=== PATIENT | male | born 1945 | race Caucasian/White ===

== ENCOUNTER → 2016-11-27 | Outpatient (CLI) | payer MEDICARE, BC | LOC: GMAB 10:55 | PROVIDERS: ATTEND Family Medicine | DX: E83.49 Other disorders of magnesium metabolism (principal); I10 Essential (primary) hypertension; Z12.5 Encounter for screening for malignant neoplasm of prostate | CPT/HCPCS: 83735; 84443; G0103 ==

== ENCOUNTER → 2017-01-09 | Outpatient (CLI) | payer MEDICARE, BC | LOC: GMAB 17:29 | PROVIDERS: ATTEND Family Medicine | DX: L02.212 Cutaneous abscess of back [any part, except buttock and flank] (principal) ==

== ENCOUNTER → 2017-03-18 | Outpatient (CLI) | payer MEDICARE, BC ==
--- NOTE | 2017-03-18 16:07 | CT ---
Study: CT Chest. Indication: COPD Technique: CT imaging of the chest obtained without intravenous administration of contrast. This exam was performed according to our departmental dose-optimization program, which includes automated exposure control, adjustment of the mA and/or kV according to patient size and/or use of iterative reconstruction technique. Comparison: None Findings: Atherosclerosis great vessels, aortic and coronary arteries. Mild cardiomegaly. Tiny pericardial effusion. Scattered reactive size and the spinal lymph nodes with the largest pretracheal lymph node demonstrating short axis diameter 7.7 mm. Calcified gallstones partially visualized in the gallbladder. Benign bilateral adrenal gland adenomas. Partial visualization several millimetric central nonobstructing left renal calculi. Degenerative changes of the spine noted. Mild to moderate emphysema. Several scattered sub-5 mm noncalcified pulmonary nodules throughout the lungs with the largest 4 mm nodule in the anterior left upper lobe on image 28. Mild linear scarring versus atelectasis left lung base. No consolidation, pleural effusion, or pneumothorax. Impression: Mild to moderate emphysema with several noncalcified pulmonary nodules as above. Follow-up CT chest in 12 months recommended. Additional findings as above. Electronically signed by: Brian Shafer MD 03/18/2017 4:03 PM CDT
--- NOTE | 2017-03-18 16:07 | US ---
Study: Bilateral Carotid Artery Doppler Sonogram. Indication: OCCLUSION AND STENOSIS OF BILATERAL CAROTID ARTERIES Technique: Multiplanar grayscale and Doppler sonographic images of the bilateral carotid arteries and vertebral arteries were obtained. Findings: The bilateral carotid arteries demonstrate mild to moderate intimal thickening and calcified plaque. Analysis of duplex waveforms and flow velocities indicate no hemodynamically significant stenosis. By grayscale imaging there is a 54% stenosis in the right bulb and 56% stenosis in the proximal right ICA. By grayscale imaging there is a 27% stenosis in the left proximal ICA and a 23% stenosis in the left bulb. The vertebral arteries demonstrate antegrade flow. Impression: Mild to moderate atherosclerosis of the bilateral carotid arteries as detailed above. Electronically signed by: Brian Shafer MD 03/18/2017 4:05 PM CDT
== END ==
LOC: CT 09:41
PROVIDERS: ATTEND Family Medicine
DX: J44.1 Chronic obstructive pulmonary disease with (acute) exacerbation (principal); I65.23 Occlusion and stenosis of bilateral carotid arteries

== ENCOUNTER → 2017-05-13 | Outpatient (CLI) | payer MEDICARE, BC | LOC: GMAB 16:46 | PROVIDERS: ATTEND Family Medicine | DX: R10.13 Epigastric pain (principal); E53.8 Deficiency of other specified B group vitamins; D64.9 Anemia, unspecified; E11.8 Type 2 diabetes mellitus with unspecified complications; E83.49 Other disorders of magnesium metabolism ==

== ENCOUNTER → 2017-05-16 | Outpatient (CLI) | payer MEDICARE, BC ==
--- NOTE | 2017-05-16 16:26 | US ---
EXAM DESCRIPTION: Abdomen,Complete CLINICAL HISTORY: EPIGASTRIC PAIN COMPARISON: None. TECHNIQUE: Real-time sonographic images of the abdomen are obtained. FINDINGS: Pancreas is unremarkable. The right lobe of the liver measures 18.4 cm. The liver is diffusely heterogeneous and increased in echogenicity. No focal hepatic mass is seen. The gallbladder is poorly distended and contains multiple echogenic foci with posterior acoustic shadowing. The largest measure 8, 9, and 10 mm. Mild echogenic gallbladder wall thickening measuring 3.5 mm. The common bile duct measures 3.5 mm in greatest diameter. The right kidney measures 10.6 x 5.6 x 5.8 cm. The left kidney measures 10.2 x 5.8 x 5.0 cm. There is a 1.3 x 1.3 x 0.9 cm anechoic cyst on the left kidney. Both kidneys show normal renal cortical echogenicity. No hydronephrosis is seen. The spleen measures 13.5 cm. Visualized IVC and abdominal aorta are within normal limits. IMPRESSION: Splenomegaly with heterogeneous increased echogenicity of the liver suggesting diffuse fatty infiltration. Cholelithiasis. Gallbladder is contracted with gallbladder wall thickening and raises suspicion for acute cholecystitis. No pericholecystic fluid is seen. Simple appearing left renal cortical cyst. Mild splenomegaly. Electronically signed by: Andrez Barajas MD 05/16/2017 4:25 PM CDT
== END | disposition home or self-care (01) ==
LOC: US 07:56
PROVIDERS: ATTEND Family Medicine
DX: R10.13 Epigastric pain (principal)

== ENCOUNTER 2017-06-06 10:24 | Emergency (ER) | payer MEDICARE ==
--- NOTE | 2017-06-06 10:35 | ED.PDOC ---
History of Present Illness - General Chief Complaint: Respiratory Problem Stated Complaint: dyspnea Time Seen by Provider: 06/06/17 10:33 Source: patient Exam Limitations: no limitations - History of Present Illness Initial Comments: Tae Carreon 71 y/o male stated that while doing his nebulizer treatment this morning got sob and had left sided pleuritic chest pains during coughing episodes.Stated that he had cardiac work up done almost a year ago and 3 months ago mentioned no heart disease. Timing/Duration: getting worse, other - 2 days ago Severity: moderate Activities at Onset: rest Possible Cause: occasional episodes Improving Factors: nothing Worsening Factors: nothing Associated Symptoms: cough, other - pleuritic chest pains Allergies/Adverse Reactions: Allergies Tetanus Toxoid Allergy (Verified 06/21/16 17:04) Swelling of extremities Home Medications: Ambulatory Orders Amlodipine Besylate 10 mg PO DAILY 07/13/13 Clonidine HCl 0.1 mg PO BID 07/13/13 Enalapril Maleate 20 mg PO BID 07/13/13 Metoprolol Tartrate 100 mg PO BID 07/13/13 Cholecalciferol [D3 Maximum Strength] 5,000 unit PO DAILY 10/03/13 Lansoprazole [Prevacid] 30 mg PO DAILY 08/09/14 Insulin Aspart Protamine & Asp [Novolog Mix 70/30 (70-30) 100 Unit/ml] 22 unit SC BID 05/25/15 Magnesium Chloride-Calcium Car [Slow-Mag 71.5-119 mg] 1 tab PO DAILY 05/25/15 Naproxen [Naprosyn] 500 mg PO BID #30 tab 05/25/15 Meloxicam [Mobic] 7.5 mg PO DAILY #10 tab 09/03/15 Albuterol Inhaler [Ventolin Hfa Inhaler] 1 puff INH QID PRN 06/21/16 Azithromycin Tab [Zithromax Tab] 500 mg PO QD #3 tab 06/23/16 Budes/Formoterol INH 160/4.5 [Symbicort Inhaler 160/4.5] 2 puff INH RTBID #0 inh 06/23/16 Potassium Chloride Tab [K-Dur] 20 meq PO DAILYBK #30 tab 06/23/16 predniSONE [Prednisone] 0 mg PO DAILY #30 tab 06/23/16 Review of Systems - Review of Systems Constitutional: States: no symptoms reported EENTM: States: no symptoms reported Respiratory: States: see HPI Cardiology: States: no symptoms reported, other - had cardiac work up last year and 3 months ago stated no heart problem Gastrointestinal/Abdominal: States: diarrhea - chronic scheduled for gi evalution Genitourinary: States: no symptoms reported Musculoskeletal: States: no symptoms reported Skin: States: no symptoms reported Neurological: States: no symptoms reported Endocrine: States: no symptoms reported Hematologic/Lymphatic: States: no symptoms reported Past Medical History (General) - Patient Medical History Hx Seizures: No Hx Stroke: No Hx Asthma: No Hx of COPD: Yes Hx Congestive Heart Failure: Yes Hx Pacemaker: No Hx Hypertension: Yes Hx Diabetes: Yes Hx Gastroesophageal Reflux: Yes Hx MRSA: No Hx Other PMH: Yes - Crohns Surgical History: other - GI,fistula anal - Vaccination History Hx Tetanus, Diphtheria Vaccination: Yes Hx Influenza Vaccination: Yes - 2014 Hx Pneumococcal Vaccination: Yes - Social History Hx Tobacco Use: Yes Years Tobacco Use: 50 Cigarettes Packs Per Day: 1 Hx Alcohol Use: No Hx Substance Use: No Hx Substance Use Treatment: No Hx Physical Abuse: No Hx Emotional Abuse: No - Activities of Daily Living Patient Lives Alone: No - Grooming Ability: Independent Eating (Feeding) Ability: Independent Toileting Ability: Independent - Female History Patient : No Family Medical History - Family History Father Family History: Unknown Living Status: Age at (years of age): 64 Cause of : "blood poisoning" Hx Family Diabetes: Yes - mom Physical Exam - Physical Exam General Appearance: Alert, Comfortable, No apparent distress Eyes, Ears, Nose, Throat Exam: PERRL/EOMI, normal ENT inspection, TMs normal, pharynx normal Neck: non-tender, full range of motion, supple, carotid bruit Respiratory: chest non-tender, rhonchi, wheezing Cardiovascular/Chest: normal peripheral pulses, regular rate, rhythm, no edema, no gallop, no murmur Peripheral Pulses: radial,right: 1+, radial,left: 1+ Gastrointestinal/Abdominal: normal bowel sounds, non tender, soft Rectal Exam: deferred - declined Extremity: non-tender, no pedal edema, no calf tenderness Neurologic: no motor/sensory deficits, alert, oriented x 3 Skin Exam: normal color, warm/dry Lymphatic: no adenopathy Progress - Progress Progress: 06/06/17 12:39 Vital Signs - 8 hr 06/06/17 06/06/17 06/06/17 10:54 10:55 12:00 Temperature 98.2 F Pulse Rate 62 62 Pulse Rate [ 69 68 Left Radial] Respiratory 20 32 H 32 H Rate Blood Pressure 154/66 141/84 [Right Arm] O2 Sat by Pulse 97 98 99 Oximetry - Results/Orders Results/Orders: 06/06/17 10:39 IV Care:Saline Lock per Protoc QSHIFT 06/06/17 10:45 EKG STAT 06/06/17 12:33 URINALYSIS Stat Laboratory Results - last 24 hr 06/06/17 06/06/17 10:40 10:40 WBC 14.6 H RBC 3.40 L Hgb 11.7 L Hct 34.2 L MCV 100.4 H MCH 34.4 H MCHC 34.1 RDW 17.4 H Plt Count 219 MPV 9.7 Absolute Neuts (auto) 11.20 H Absolute Lymphs (auto) 1.80 Absolute Monos (auto) 0.90 H Absolute Eos (auto) 0.60 H Absolute Basos (auto) 0.10 Neutrophils % 76.7 Lymphocytes % 12.5 L Monocytes % 6.3 Eosinophils % 4.0 Basophils % 0.5 PT 12.0 INR 1.060 PTT (SP) 30.1 D-Dimer, Quantitative 596 H* Sodium 144 Potassium 3.4 L Chloride 121 H* Carbon Dioxide 15 L Anion Gap 11.4 L BUN 20 H Creatinine 2.67 H BUN/Creatinine Ratio 7.5 L Random Glucose 143 H Serum Osmolality 291.9 Calcium 8.0 L Magnesium 1.0 L Total Bilirubin 1.1 H Direct Bilirubin 0.2 Indirect Bilirubin 0.9 H AST 16 ALT 16 Alkaline Phosphatase 72 Creatine Kinase 228 H* CK-MB (CK-2) 8.7 H* CK-MB (CK-2) % 3.82 H Troponin I 0.17 H* B-Natriuretic Peptide 1170.0 H* Serum Total Protein 6.2 L Albumin 2.6 L - EKG/XRAY/CT EKG: nonspecific ST T wave Chg - inferior leads Comments: heart rate 66 1st degree av block RBBB ,fascicular block XRAY: chest - no acute abnormalities Departure - Departure Clinical Impression: NSTEMI (non-ST elevation myocardial infarction), Diabetic nephropathy associated with type 1 diabetes mellitus, H/O Crohn's disease, CKD (chronic kidney disease) stage 4, GFR 15-29 ml/min, Hypocalcemia, Hypomagnesemia Dyspnea Qualifiers: Dyspnea type: unspecified Qualified Code(s): R06.00 - Dyspnea, unspecified Time of Disposition: 13:01 - D/W Dr. Susy Chavez- MD TAYLORMalgorzata Disposition: Transfer to Hospital Referrals: Jamel Gracia MD [Primary Care Provider] - 1-2 Weeks Home Medications: Ambulatory Orders Amlodipine Besylate 10 mg PO DAILY 07/13/13 Clonidine HCl 0.1 mg PO BID 07/13/13 Enalapril Maleate 20 mg PO BID 07/13/13 Metoprolol Tartrate 100 mg PO BID 07/13/13 Cholecalciferol [D3 Maximum Strength] 5,000 unit PO DAILY 10/03/13 Lansoprazole [Prevacid] 30 mg PO DAILY 08/09/14 Insulin Aspart Protamine & Asp [Novolog Mix 70/30 (70-30) 100 Unit/ml] 22 unit SC BID 05/25/15 Magnesium Chloride-Calcium Car [Slow-Mag 71.5-119 mg] 1 tab PO DAILY 05/25/15 Naproxen [Naprosyn] 500 mg PO BID #30 tab 05/25/15 Meloxicam [Mobic] 7.5 mg PO DAILY #10 tab 09/03/15 Albuterol Inhaler [Ventolin Hfa Inhaler] 1 puff INH QID PRN 06/21/16 Azithromycin Tab [Zithromax Tab] 500 mg PO QD #3 tab 06/23/16 Budes/Formoterol INH 160/4.5 [Symbicort Inhaler 160/4.5] 2 puff INH RTBID #0 inh 06/23/16 Potassium Chloride Tab [K-Dur] 20 meq PO DAILYBK #30 tab 06/23/16 predniSONE [Prednisone] 0 mg PO DAILY #30 tab 06/23/16
[2017-06-06] MEDS ORDERED: IPRATROPIUM/ALBUTEROL 3 ML VIAL NEB ONE (10:40)
[2017-06-06] MEDS ORDERED: methylPREDNISolone SODIUM SUC 125 MG/2 ML VIAL IV ONE (10:41)
--- NOTE | 2017-06-06 10:56 | RAD ---
EXAM DESCRIPTION: Chest,2 Views CLINICAL HISTORY: sob COMPARISON: June 23, 2016 TECHNIQUE: PA/lateral FINDINGS: There is no cardiac or pulmonary abnormality. The lungs are clear. There is no effusion. IMPRESSION: 1. Normal two-view chest. Electronically signed by: Don Dao MD 06/06/2017 10:54 AM CDT
[2017-06-06] MEDS ORDERED: HEPARIN PREMIX 25,000 UNITS in PREMIX BAG 1 BAG IVS SCH (12:45)
[2017-06-06] MEDS ORDERED: HEPARIN PREMIX 500 ML ONE (12:56)
[2017-06-06 13:30] VITALS: TEMP 97.2
[2017-06-06 14:09] VITALS: BP 168/87; O2SAT 97
== END 2017-06-06 14:05 | disposition short-term general hospital (02) ==
LOC: ER 10:24
DX: I21.4 Non-ST elevation (NSTEMI) myocardial infarction (principal); I13.0 Hypertensive heart and chronic kidney disease with heart failure and stage 1 through stage 4 chronic kidney disease, or unspecified chronic kidney disease; E10.22 Type 1 diabetes mellitus with diabetic chronic kidney disease; N18.4 Chronic kidney disease, stage 4 (severe); I50.9 Heart failure, unspecified; E83.51 Hypocalcemia; E83.42 Hypomagnesemia; J44.9 Chronic obstructive pulmonary disease, unspecified; K21.9 Gastro-esophageal reflux disease without esophagitis; Z87.19 Personal history of other diseases of the digestive system; Z87.891 Personal history of nicotine dependence; Z88.7 Allergy status to serum and vaccine; Z79.899 Other long term (current) drug therapy; Z79.4 Long term (current) use of insulin
CPT/HCPCS: 36415; 71020; 80048; 80076; 81001; 82550; 82553; 83880; 84484; 85025; 85379; 85610; 85730; 93005; 94640; J1644; J2930; J7620

== ENCOUNTER 2017-07-06 11:05 | Emergency (ER) | payer MEDICARE ==
[2017-07-06 11:18] VITALS: TEMP 98.8
--- NOTE | 2017-07-06 11:30 | ED.PDOC ---
History of Present Illness - General Chief Complaint: Lower Extremity Injury Stated Complaint: Left ankle/foot swelling and redness Time Seen by Provider: 07/06/17 11:24 Source: patient Exam Limitations: no limitations - History of Present Illness Initial Comments: Patient presents with left ankle pain and swelling since waking up this morning. He has never had this before and no history of gout. Pain is on the medial ankle, non-radiating, throbbing, worse with movement and walking, better with rest, no recent trauma to the area. No other complaints. Timing/Duration: 4-6 hours Severity: moderate Improving Factors: rest Worsening Factors: movement Associated Symptoms: denies symptoms Allergies/Adverse Reactions: Allergies Tetanus Toxoid Allergy (Verified 07/06/17 11:14) Swelling of extremities Home Medications: Ambulatory Orders Amlodipine Besylate 10 mg PO DAILY 07/13/13 Clonidine HCl 0.1 mg PO BID 07/13/13 Enalapril Maleate 20 mg PO BID 07/13/13 Metoprolol Tartrate 100 mg PO BID 07/13/13 Cholecalciferol [D3 Maximum Strength] 5,000 unit PO DAILY 10/03/13 Lansoprazole [Prevacid] 30 mg PO DAILY 08/09/14 Insulin Aspart Protamine & Asp [Novolog Mix 70/30 (70-30) 100 Unit/ml] 22 unit SC BID 05/25/15 Magnesium Chloride-Calcium Car [Slow-Mag 71.5-119 mg] 1 tab PO DAILY 05/25/15 Naproxen [Naprosyn] 500 mg PO BID #30 tab 05/25/15 Meloxicam [Mobic] 7.5 mg PO DAILY #10 tab 09/03/15 Albuterol Inhaler [Ventolin Hfa Inhaler] 1 puff INH QID PRN 06/21/16 Azithromycin Tab [Zithromax Tab] 500 mg PO QD #3 tab 06/23/16 Budes/Formoterol INH 160/4.5 [Symbicort Inhaler 160/4.5] 2 puff INH RTBID #0 inh 06/23/16 Potassium Chloride Tab [K-Dur] 20 meq PO DAILYBK #30 tab 06/23/16 predniSONE [Prednisone] 0 mg PO DAILY #30 tab 06/23/16 Colchicine 1.2 mg PO BID #3 tab 07/06/17 Tramadol HCl 50 mg PO Q6HRS #20 tab 07/06/17 Review of Systems - Review of Systems Constitutional: States: no symptoms reported EENTM: States: no symptoms reported Respiratory: States: no symptoms reported Cardiology: States: no symptoms reported Gastrointestinal/Abdominal: States: no symptoms reported Genitourinary: States: no symptoms reported Musculoskeletal: States: see HPI Skin: States: no symptoms reported Neurological: States: no symptoms reported Endocrine: States: no symptoms reported Hematologic/Lymphatic: States: no symptoms reported Past Medical History (General) - Patient Medical History Hx Seizures: No Hx Stroke: No Hx Asthma: No Hx of COPD: Yes Hx Cardiac Disorders: Yes - CAD Hx Congestive Heart Failure: No Hx Pacemaker: No Hx Hypertension: Yes Hx Diabetes: Yes Hx Gastroesophageal Reflux: Yes Hx MRSA: No Surgical History: appendectomy, colectomy - Vaccination History Hx Tetanus, Diphtheria Vaccination: Yes Hx Influenza Vaccination: Yes - 2016 Hx Pneumococcal Vaccination: Yes - Social History Hx Tobacco Use: Yes Hx Alcohol Use: No Hx Substance Use: No Hx Substance Use Treatment: No Hx Physical Abuse: No Hx Emotional Abuse: No - Female History Patient : No Family Medical History - Family History Father Family History: Unknown Living Status: Age at (years of age): 64 Cause of : "blood poisoning" Hx Family Diabetes: Yes - mom Physical Exam - Physical Exam General Appearance: Alert Respiratory: lungs clear Cardiovascular/Chest: normal peripheral pulses, regular rate, rhythm Gastrointestinal/Abdominal: normal bowel sounds, non tender, soft Extremity: other - Left ankle is mildly swollen and TTP over medial malleolus. Patient can dorsiflex and plantarflex the foot against resistance but it is painful. There is full sensation throughout the entire foot. Progress - Progress Progress: 07/06/17 15:29 Radiographs of the left foot showed no fractures nor dislocations. There was calcaneal spurring. 07/06/17 15:30 Calcium was 6.6 which happens frequently for the patient. He was given calcium chloride 1 gram IV x one and toradol 30 mg IV x one. He was also given potassium chloride 40 meq po x one. He has chronically low potassium. EKG showed NSR with no ST elevations nor depressions. No QT elongation flattened T waves. Patient discharged with RX for colchicine and tramadol. Laboratory Tests 07/06/17 07/06/17 11:35 14:35 Sodium 146 H Potassium 3.0 L Chloride 114 H Carbon Dioxide 21 Anion Gap 14.0 BUN 21 H Creatinine 2.37 H BUN/Creatinine Ratio 8.9 L Random Glucose 219 H Serum Osmolality 300.2 H Uric Acid 7.1 Calcium 6.6 L* 7.9 L Departure - Departure Clinical Impression: Ankle pain, left Disposition: Discharge to Home or Self Care Condition: Good Departure Forms: ED Discharge - Pt. Copy, Patient Portal Self Enrollment Diet: resume usual diet Activity: increase activity as tolerated Referrals: Jamel Gracia MD [Primary Care Provider] - 1-2 Weeks Prescriptions: Tramadol HCl 50 mg PO Q6HRS #20 tab Colchicine 1.2 mg PO BID #3 tab Home Medications: Ambulatory Orders Amlodipine Besylate 10 mg PO DAILY 07/13/13 Clonidine HCl 0.1 mg PO BID 07/13/13 Enalapril Maleate 20 mg PO BID 07/13/13 Metoprolol Tartrate 100 mg PO BID 07/13/13 Cholecalciferol [D3 Maximum Strength] 5,000 unit PO DAILY 10/03/13 Lansoprazole [Prevacid] 30 mg PO DAILY 08/09/14 Insulin Aspart Protamine & Asp [Novolog Mix 70/30 (70-30) 100 Unit/ml] 22 unit SC BID 05/25/15 Magnesium Chloride-Calcium Car [Slow-Mag 71.5-119 mg] 1 tab PO DAILY 05/25/15 Naproxen [Naprosyn] 500 mg PO BID #30 tab 05/25/15 Meloxicam [Mobic] 7.5 mg PO DAILY #10 tab 09/03/15 Albuterol Inhaler [Ventolin Hfa Inhaler] 1 puff INH QID PRN 06/21/16 Azithromycin Tab [Zithromax Tab] 500 mg PO QD #3 tab 06/23/16 Budes/Formoterol INH 160/4.5 [Symbicort Inhaler 160/4.5] 2 puff INH RTBID #0 inh 06/23/16 Potassium Chloride Tab [K-Dur] 20 meq PO DAILYBK #30 tab 06/23/16 predniSONE [Prednisone] 0 mg PO DAILY #30 tab 06/23/16 Colchicine 1.2 mg PO BID #3 tab 07/06/17 Tramadol HCl 50 mg PO Q6HRS #20 tab 07/06/17 Additional Instructions: Take medications as prescribed. Follow up with Dr. Mg from orthopedics this week. Use crutches as needed.
--- NOTE | 2017-07-06 12:17 | RAD ---
EXAM DESCRIPTION: Foot,Left 3 Views CLINICAL HISTORY: 72 years Male, left foot swelling and pain COMPARISON: None. FINDINGS: 3 views of the left foot show soft tissue edema dorsally without underlying fracture or malalignment. Vascular calcifications are noted. There is calcaneal spurring at the insertion sites of the plantar fascia and Achilles tendon. IMPRESSION: Dorsal soft tissue swelling suggestive of contusion. No underlying fracture or malalignment. Vascular calcifications and degenerative changes. Electronically signed by: Joel Lucia MD 07/06/2017 12:17 PM CDT Workstation: [id number]
[2017-07-06] MEDS ORDERED: CALCIUM CHLORIDE INJ 100 MG/ML SYG IV ONE (12:53)
[2017-07-06] MEDS ORDERED: KETOROLAC TROMETHAMINE INJ 30 MG/ML VIAL IV ONE (13:48)
[2017-07-06] MEDS ORDERED: POTASSIUM CHLORIDE 20 MEQ TAB PO ONE (14:24)
[2017-07-06 15:06] VITALS: O2SAT 99
[2017-07-06 16:14] VITALS: BP 175/69
== END 2017-07-06 16:02 | disposition home or self-care (01) ==
LOC: ER 11:05
DX: M25.572 Pain in left ankle and joints of left foot (principal); J44.9 Chronic obstructive pulmonary disease, unspecified; I25.10 Atherosclerotic heart disease of native coronary artery without angina pectoris; I10 Essential (primary) hypertension; E11.9 Type 2 diabetes mellitus without complications; K21.9 Gastro-esophageal reflux disease without esophagitis; Z79.899 Other long term (current) drug therapy; Z79.4 Long term (current) use of insulin; Z88.7 Allergy status to serum and vaccine; Z87.891 Personal history of nicotine dependence
CPT/HCPCS: 36415; 73630; 80048; 82310; 84550; 93005; J1885

== ENCOUNTER → 2017-09-12 | Outpatient (CLI) | payer MEDICARE ==
--- NOTE | 2017-09-14 00:23 | RAD ---
Examination: XR HAND 3 OR MORE VIEWS dated 09/12/2017 12:00 AM CDT History: RIGHT HAND PAIN Comparison: None Technique: Three views of the right hand FINDINGS AND IMPRESSION: No acute fracture or dislocation. There is mild chondrocalcinosis of the radiocarpal joint. Mild degenerative changes of the basal joint. No osseous erosions. Electronically signed by: Dileep Chand MD 09/14/2017 12:22 AM CDT
== END | disposition home or self-care (01) ==
LOC: RAD 07:26
PROVIDERS: ATTEND Orthopaedic Surgery
DX: M79.641 Pain in right hand (principal)

== ENCOUNTER 2017-09-24 05:49 | Day surgery (SDC) | payer MEDICARE ==
--- NOTE | 2017-09-22 08:51 | HP ---
CHIEF COMPLAINT: Right hand numbness. HISTORY OF PRESENT ILLNESS: Tae is a 72-year-old male with a history of pain and numbness in the right hand. He has had this going on for several years. I initially saw him about two years ago. He elected to not have anything done at that time. His symptoms are now present on a continual basis. It is isolated to the palmar aspect of the hand involving the first three digits. Because of the continual basis, he has requested operative intervention. After discussing the risks, benefits and alternatives to that, the patient has given informed consent. PAST SURGICAL HISTORY: 1. Partial colectomy. 2. Hemorrhoidectomy. 3. Appendectomy. MEDICATIONS: 1. Potassium. 2. Metoprolol. 3. Amlodipine. 4. Magnesium. 5. Enalapril. ALLERGIES: TETANUS. CODE STATUS: Full code. IMMUNIZATIONS: Up to date. SOCIAL HISTORY: The patient does not drink or use any illicit drugs. He does smoke. FAMILY HISTORY: None pertinent to today's complaint. REVIEW OF SYSTEMS: Negative except as indicated in the History of Present Illness. PHYSICAL EXAMINATION: VITAL SIGNS: Blood pressure 168/69. Pulse 63. Height 6'. Weight 186. MENTAL STATUS: The patient is awake, alert, and is able to give a good history and participate in the physical. The patient is oriented to person, place and time. SKIN: Normal tone and turgor. MUSCULOSKELETAL: He has obvious thenar atrophy and numbness at rest. Two- point discrimination is not possible to test secondary to his numbness. He does have full director chemistry strength. He has some stiffness in the digits, but otherwise full range of motion. He has an equivocal carpal compression test. ASSESSMENT: 1. Carpal tunnel syndrome. PLAN: The plan at this point is for carpal tunnel release. We have discussed the risks, benefits, and alternatives to that and the patient has given informed consent. #[id number] [facility]
[2017-09-24] MEDS ORDERED: LACTATED RINGERS 1,000 ML ONE (06:21)
[2017-09-24] MEDS ORDERED: SODIUM CHL 0.9% 100ML MINI-BAG 100 ML IVPB ONE (06:21)
[2017-09-24] MEDS ORDERED: ceFAZolin SODIUM 1 GM VIAL ONE (06:21)
[2017-09-24] MEDS ORDERED: BUPIVACAINE 0.25% INJ 30 ML VIAL INJ ONE (10:01)
[2017-09-24] MEDS ORDERED: LIDOCAINE 1% 50 ML VIAL INJ ONE (10:01)
[2017-09-24] MEDS: ceFAZolin SODIUM 1 GM VIAL ONE ×2 (10:33→10:39)
[2017-09-24] MEDS: VANCOMYCIN HCL INJ 1,000 MG VIAL IVPB ONE ×2 (10:34→10:40)
[2017-09-24] MEDS ORDERED: ALBUTEROL SULFATE 2.5 MG/3 ML VIAL NEB ONE (11:05)
[2017-09-24 11:50] VITALS: BP 187/75; TEMP 98; O2SAT 100
[2017-09-24] MEDS ORDERED: fentaNYL CITRATE INJ 50 MCG/ML AMP IV ONE (12:00)
[2017-09-24] MEDS ORDERED: MIDAZOLAM INJ 2 MG/2 ML VIAL IV ONE (12:00)
[2017-09-24] MEDS ORDERED: PROPOFOL 200 MG/20 ML VIAL IV ONE (12:00)
[2017-09-24] MEDS ORDERED: LIDOCAINE 1% 10 ML VIAL INJ ONE (12:00)
--- NOTE | 2017-09-29 08:35 | OP ---
DATE OF PROCEDURE: 09/24/17 PREOPERATIVE DIAGNOSIS: 1. Carpal tunnel syndrome, right POSTOPERATIVE DIAGNOSIS: 1. Carpal tunnel syndrome, right. PROCEDURE: 1. Carpal tunnel release, right. SURGEON: Samuel Mg MD. FORMULA TECHNICIAN: Emery Powell CST, SA-C. ANESTHESIA: Local with sedation. COMPLICATIONS: None. FINDINGS: 1. Narrowing of the median nerve across the carpal tunnel. 2. Thickening of the transverse carpal ligament. 3. Slight thenar atrophy. INDICATION: Mr. Carreon has a long history of numbness in the first three digits as well as pain in the wrist. Because of the ongoing symptoms and the onset of symptoms at rest, he has requested operative intervention. After discussing the risks, benefits and alternatives to that, the patient has given informed consent for carpal tunnel release. PROCEDURE: The patient was brought to the Operating Room and placed in the supine position. Sedation was administered and local anesthetic was injected into the operative area under sterile conditions. After the injection of anesthetic, the arm was sterilely prepped and draped. A longitudinal incision was made directly overlying the transverse carpal ligament and blunt dissection was carried down to the ligament. The transverse carpal ligament was sharply transected along its length and a [place] elevator was used to ensure complete release of the ligament. Once release had been confirmed, the wound was thoroughly irrigated and the wound was closed with Nylon suture. A sterile dressing was placed and the patient was taken to the Day Surgery Unit. POSTOPERATIVE INSTRUCTIONS: The patient has been encouraged to do range of motion of the digits and will followup with us in two days. #[id number] [facility]
== END 2017-09-24 11:40 | disposition home or self-care (01) ==
LOC: AMB 05:49
PROVIDERS: ATTEND Orthopaedic Surgery
DX: G56.01 Carpal tunnel syndrome, right upper limb (principal); I10 Essential (primary) hypertension; I25.10 Atherosclerotic heart disease of native coronary artery without angina pectoris; E11.9 Type 2 diabetes mellitus without complications; K21.9 Gastro-esophageal reflux disease without esophagitis; F17.210 Nicotine dependence, cigarettes, uncomplicated; J44.9 Chronic obstructive pulmonary disease, unspecified; Z90.49 Acquired absence of other specified parts of digestive tract; Z88.7 Allergy status to serum and vaccine; Z79.899 Other long term (current) drug therapy
CPT/HCPCS: 01810; 36416; 64721; 82948; 94640; J0690; J2250; J3010; J3370; J3490; J7050; J7120; J7611

== ENCOUNTER 2017-09-30 16:48 | Emergency (ER) | payer MEDICARE ==
[2017-09-30 16:59] VITALS: O2SAT 98
[2017-09-30] MEDS ORDERED: COLCHICINE 0.6 MG TAB PO ONE (16:59)
[2017-09-30] MEDS ORDERED: predniSONE 20 MG TAB PO ONE (17:00)
--- NOTE | 2017-09-30 18:10 | ED.PDOC ---
History of Present Illness - General Chief Complaint: General Stated Complaint: R ankle discomfort Time Seen by Provider: 09/30/17 16:53 Source: patient Exam Limitations: no limitations - History of Present Illness Initial Comments: the patient is a 72-year-old male presenting to the emergency room secondary to pain in his right ankle and lower extremity. The patient had carpal tunnel done yesterday. He woke up with the pain this morning. The area is swollen and mildly erythematous and warm and veryvery tender to touch. Timing/Duration: 24 hours Severity: severe Improving Factors: nothing Worsening Factors: movement Associated Symptoms: denies symptoms Allergies/Adverse Reactions: Allergies Tetanus Toxoid Allergy (Verified 07/06/17 11:14) Swelling of extremities Home Medications: Ambulatory Orders Amlodipine Besylate 10 mg PO DAILY 07/13/13 Clonidine HCl 0.1 mg PO BID 07/13/13 Enalapril Maleate 20 mg PO BID 07/13/13 Metoprolol Tartrate 100 mg PO BID 07/13/13 Lansoprazole [Prevacid] 30 mg PO DAILY 08/09/14 Insulin Aspart Protamine & Asp [Novolog Mix 70/30 (70-30) 100 Unit/ml] 22 unit SC BID 05/25/15 Magnesium Chloride-Calcium Car [Slow-Mag 71.5-119 mg] 1 tab PO DAILY 05/25/15 Potassium Chloride Tab [K-Dur] 20 meq PO DAILYBK #30 tab 06/23/16 Btxlfhcavxykx-Wokm-Asqxpzwxjy [Fioricet] 1 ea PO Q8H PRN #21 tab 09/30/17 Colchicine 0.6 mg PO Q2H PRN #10 tab 09/30/17 Review of Systems - Review of Systems Constitutional: States: no symptoms reported EENTM: States: no symptoms reported Respiratory: States: no symptoms reported Cardiology: States: no symptoms reported Gastrointestinal/Abdominal: States: no symptoms reported Genitourinary: States: no symptoms reported Musculoskeletal: States: see HPI Skin: States: see HPI Neurological: States: no symptoms reported, anxiety Endocrine: States: no symptoms reported All other Systems: No Change from Baseline Past Medical History (General) - Patient Medical History Hx Seizures: No Hx Stroke: No Hx Asthma: No Hx of COPD: Yes Hx Cardiac Disorders: Yes - CAD Hx Congestive Heart Failure: No Hx Pacemaker: No Hx Hypertension: Yes Hx Diabetes: Yes - fsbs 140 Hx Gastroesophageal Reflux: Yes Hx MRSA: Yes MRSA Source:: colon surg Surgical History: colectomy - Vaccination History Hx Tetanus, Diphtheria Vaccination: Yes Hx Influenza Vaccination: Yes - 2017 Hx Pneumococcal Vaccination: Yes - Social History Hx Tobacco Use: Yes Hx Alcohol Use: No Hx Substance Use: No Hx Substance Use Treatment: No Hx Physical Abuse: No Hx Emotional Abuse: No - Female History Patient : No Family Medical History - Family History Father Family History: Unknown Living Status: Age at (years of age): 62 Cause of : "blood poisoning" Hx Family Diabetes: Yes - mom Physical Exam - Physical Exam General Appearance: Alert, Obvious distress Eye Exam: bilateral normal Ears, Nose, Throat: normal ENT inspection, normal pharynx Neck: full range of motion Respiratory: no respiratory distress, no accessory muscle use Cardiovascular/Chest: normal peripheral pulses, other - egular rate Peripheral Pulses: radial,right: 2+, radial,left: 2+, dorsalis pedis,right: 2+, dorsalis pedis,left: 2+ Rectal Exam: deferred Extremity: inflammation, pedal edema, swelling 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 He received a dose of colchicine and prednisone here. He does need to follow his blood sugars closely over the next few days. He will be written for colchicine for as needed use for the gout. He needs to keep himself well hydrated. He needs to keep the lower extremity warm. He needs to avoid large protein loads and/or any alcohol. ER warnings were given for any significant worsening. Fioricet can be used additionally as needed for pain. Departure - Departure Clinical Impression: Gout Qualifiers: Gout site: ankle Gout etiology: unspecified cause Chronicity: acute Laterality : right Qualified Code(s): M10.9 - Gout, unspecified Disposition: Discharge to Home or Self Care Condition: Fair Departure Forms: ED Discharge - Pt. Copy, Patient Portal Self Enrollment Instructions: DI for Gout Diet: regular diet - low protein Activity: increase activity as tolerated Referrals: Jamel Gracia MD [Primary Care Provider] - 1-2 Weeks Prescriptions: Aerkolhgxwkrg-Lxyd-Sodjmcgapj [Fioricet] 1 ea PO Q8H PRN #21 tab PRN Reason: Pain Colchicine 0.6 mg PO Q2H PRN #10 tab PRN Reason: Pain -- Moderate To Severe Home Medications: Ambulatory Orders Amlodipine Besylate 10 mg PO DAILY 07/13/13 Clonidine HCl 0.1 mg PO BID 07/13/13 Enalapril Maleate 20 mg PO BID 07/13/13 Metoprolol Tartrate 100 mg PO BID 07/13/13 Lansoprazole [Prevacid] 30 mg PO DAILY 08/09/14 Insulin Aspart Protamine & Asp [Novolog Mix 70/30 (70-30) 100 Unit/ml] 22 unit SC BID 05/25/15 Magnesium Chloride-Calcium Car [Slow-Mag 71.5-119 mg] 1 tab PO DAILY 05/25/15 Potassium Chloride Tab [K-Dur] 20 meq PO DAILYBK #30 tab 06/23/16 Qktbdamvdzpmj-Voou-Snzqcqdrpt [Fioricet] 1 ea PO Q8H PRN #21 tab 09/30/17 Colchicine 0.6 mg PO Q2H PRN #10 tab 09/30/17 Additional Instructions: the patient is a 72-year-old male that appears to be having a gout flare in his right ankle. He received a dose of colchicine and prednisone here. He does need to follow his blood sugars closely over the next few days. He will be written for colchicine for as needed use for the gout. He needs to keep himself well hydrated. He needs to keep the lower extremity warm. He needs to avoid large protein loads and/or any alcohol. ER warnings were given for any significant worsening. Fioricet can be used additionally as needed for pain.
[2017-09-30 19:18] VITALS: BP 168/76; TEMP 99
== END 2017-09-30 18:17 | disposition home or self-care (01) ==
LOC: ER 16:48
DX: M10.9 Gout, unspecified (principal); J44.9 Chronic obstructive pulmonary disease, unspecified; I10 Essential (primary) hypertension; E11.9 Type 2 diabetes mellitus without complications; K21.9 Gastro-esophageal reflux disease without esophagitis; I25.10 Atherosclerotic heart disease of native coronary artery without angina pectoris; Z88.7 Allergy status to serum and vaccine; Z79.4 Long term (current) use of insulin; Z79.899 Other long term (current) drug therapy

== ENCOUNTER → 2018-01-15 | Outpatient (CLI) | payer MEDICARE | LOC: GMAB 10:31 | PROVIDERS: ATTEND Family Medicine | DX: E83.49 Other disorders of magnesium metabolism (principal); I10 Essential (primary) hypertension; M10.072 Idiopathic gout, left ankle and foot; E11.8 Type 2 diabetes mellitus with unspecified complications; Z12.5 Encounter for screening for malignant neoplasm of prostate | CPT/HCPCS: 83735; 84443; 84550; G0103 ==

== ENCOUNTER → 2018-02-24 | Outpatient (CLI) | payer MEDICARE | END | disposition home or self-care (01) | LOC: GMAB 12:21 | PROVIDERS: ATTEND Family Medicine | DX: E83.49 Other disorders of magnesium metabolism (principal) ==

== ENCOUNTER 2018-05-09 13:45 | Emergency (ER) | payer MEDICARE ==
[2018-05-09] MEDS ORDERED: CALCIUM GLUCONATE INJ 1 GM/10 ML VIAL IV ONE ×2 (15:15→19:38)
[2018-05-09] MEDS ORDERED: MAGNESIUM SULFATE PREMIX 4GM 4 GM in PREMIX BAG 1 BAG IVPB ONE (15:16)
[2018-05-09] MEDS ORDERED: MAGNESIUM SULFATE PREMIX 4GM 50 ML IVPB ONE (15:32)
[2018-05-09] MEDS ORDERED: SODIUM CHLORIDE 0.9% 50ML 50 ML ONE ×2 (16:02→17:20)
[2018-05-09] MEDS ORDERED: CALCIUM GLUCONATE INJ 1 GM in SODIUM CHLORIDE 0.9% 50ML 50 ML IVPB ONE (16:04)
[2018-05-09] MEDS ORDERED: CALCIUM GLUCONATE INJ 1 GM/10 ML VIAL ONE (17:02)
[2018-05-09 18:44] VITALS: O2SAT 99
[2018-05-09] MEDS ORDERED: CALCIUM CARBONATE (ANTACID) 500 MG CHEWABLE TAB PO ONE (19:31)
--- NOTE | 2018-05-09 19:34 | ED.PDOC ---
History of Present Illness - General Chief Complaint: General Stated Complaint: Tingling to BUE Time Seen by Provider: 05/09/18 14:01 Source: patient, Vital Signs reviewed, family, old records Exam Limitations: no limitations - History of Present Illness Initial Comments: he says he has had tingling to his fingertips for weeks but worse beginning yesterday. It is identical to many previous episodes caused by hypocalcemia. He says he was told it was from his copious diarrhea he has with his Crohns disease. He says he is typically given magnesium & calcium, he gets better & goes home - which is what he wants today. He has been sent to for the same & also got a normal cardiac eval including a stress test. Other than the tingling, he has no other symptoms. Timing/Duration: unsure, constant, getting worse Severity: mild Improving Factors: nothing Worsening Factors: nothing Associated Symptoms: denies symptoms - no missed doses of his meds Allergies/Adverse Reactions: Allergies Tetanus Toxoid Allergy (Verified 05/09/18 14:08) Swelling of extremities Home Medications: Ambulatory Orders Amlodipine Besylate 10 mg PO DAILY 07/13/13 Clonidine HCl 0.1 mg PO BID 07/13/13 Enalapril Maleate 20 mg PO BID 07/13/13 Metoprolol Tartrate 100 mg PO BID 07/13/13 Lansoprazole [Prevacid] 30 mg PO DAILY 08/09/14 Insulin Aspart Protamine & Asp [Novolog Mix 70/30 (70-30) 100 Unit/ml] 22 unit SC BID 05/25/15 Magnesium Chloride-Calcium Car [Slow-Mag 71.5-119 mg] 1 tab PO DAILY 05/25/15 Potassium Chloride Tab [K-Dur] 20 meq PO DAILYBK #30 tab 06/23/16 Zxxllupfgvqkv-Iqnw-Ivqjdkjjqg [Fioricet] 1 ea PO Q8H PRN #21 tab 09/30/17 Colchicine 0.6 mg PO Q2H PRN #10 tab 09/30/17 Review of Systems - Review of Systems Constitutional: States: see HPI EENTM: States: no symptoms reported Respiratory: States: no symptoms reported Cardiology: States: no symptoms reported Genitourinary: States: no symptoms reported Musculoskeletal: States: no symptoms reported Skin: States: no symptoms reported Neurological: States: paresthesia Endocrine: States: no symptoms reported Past Medical History (General) - Patient Medical History Hx Seizures: No Hx Stroke: No Hx Asthma: No Hx of COPD: Yes Hx Cardiac Disorders: Yes - CAD Hx Congestive Heart Failure: No Hx Pacemaker: No Hx Hypertension: Yes Hx Diabetes: Yes Hx Gastroesophageal Reflux: Yes Hx MRSA: Yes MRSA Source:: colon surg - Vaccination History Hx Tetanus, Diphtheria Vaccination: Yes Hx Influenza Vaccination: Yes - 2017 Hx Pneumococcal Vaccination: Yes - Social History Hx Tobacco Use: Yes Hx Alcohol Use: No Hx Substance Use: No Hx Substance Use Treatment: No Hx Physical Abuse: No Hx Emotional Abuse: No - Female History Patient : No Family Medical History - Family History Father Family History: Unknown Living Status: Age at (years of age): 62 Cause of : "blood poisoning" Hx Family Diabetes: Yes - mom Physical Exam - Physical Exam General Appearance: Alert, Comfortable, No apparent distress Eye Exam: bilateral normal Ears, Nose, Throat: normal ENT inspection Neck: supple, normal inspection Respiratory: lungs clear, normal breath sounds, no respiratory distress, no accessory muscle use Cardiovascular/Chest: regular rate, rhythm, no edema, no gallop, no JVD, no murmur Gastrointestinal/Abdominal: non tender, soft, no organomegaly Extremity: normal range of motion, normal inspection, normal capillary refill Neurologic: alert, normal mood/affect, oriented x 3, sensory deficit - fingertips Skin Exam: normal color, warm/dry Progress - Progress Progress: 05/09/18 19:34 asymptomatic. Wants to go home. Declines admission. Cr in Dec or January was 4.7 by his report. He will f/u with his PCP on Friday for repeat lab. 05/10/18 00:08 Have increased his home Ca supplementation until Friday. - Results/Orders Results/Orders: critical Ca & Mg with acidosis - EKG/XRAY/CT EKG: Lucas, Sinus, nonspecific ST T wave Chg Comments: SB @ 59; LAD; 1st HB; LVH & widened QRS Departure - Departure Clinical Impression: Hypocalcemia Disposition: Discharge to Home or Self Care Condition: Fair Departure Forms: ED Discharge - Pt. Copy, Patient Portal Self Enrollment Instructions: Hypocalcemia (DC) Referrals: Jamel Gracia MD [Primary Care Provider] - 1-2 Days Home Medications: Ambulatory Orders Amlodipine Besylate 10 mg PO DAILY 07/13/13 Clonidine HCl 0.1 mg PO BID 07/13/13 Enalapril Maleate 20 mg PO BID 07/13/13 Metoprolol Tartrate 100 mg PO BID 07/13/13 Lansoprazole [Prevacid] 30 mg PO DAILY 08/09/14 Insulin Aspart Protamine & Asp [Novolog Mix 70/30 (70-30) 100 Unit/ml] 22 unit SC BID 05/25/15 Magnesium Chloride-Calcium Car [Slow-Mag 71.5-119 mg] 1 tab PO DAILY 05/25/15 Potassium Chloride Tab [K-Dur] 20 meq PO DAILYBK #30 tab 06/23/16 Tipoqqpdiityx-Jfdt-Zelfodoars [Fioricet] 1 ea PO Q8H PRN #21 tab 09/30/17 Colchicine 0.6 mg PO Q2H PRN #10 tab 09/30/17 Additional Instructions: increase your calcium as directed
[2018-05-09 20:07] VITALS: BP 161/71; TEMP 98.1
== END 2018-05-09 20:07 | disposition home or self-care (01) ==
LOC: ER 13:45
DX: E83.51 Hypocalcemia (principal); R20.2 Paresthesia of skin; R00.1 Bradycardia, unspecified; I44.0 Atrioventricular block, first degree; I25.10 Atherosclerotic heart disease of native coronary artery without angina pectoris; K50.90 Crohn's disease, unspecified, without complications; J44.9 Chronic obstructive pulmonary disease, unspecified; I10 Essential (primary) hypertension; E11.9 Type 2 diabetes mellitus without complications; K21.9 Gastro-esophageal reflux disease without esophagitis; Z88.7 Allergy status to serum and vaccine; Z79.899 Other long term (current) drug therapy
CPT/HCPCS: 36415; 80048; 83735; 93005; A4216; J3475

== ENCOUNTER 2018-06-22 12:16 | Emergency (ER) | payer MEDICARE ==
[2018-06-22 12:31] VITALS: TEMP 98.5
--- NOTE | 2018-06-22 12:36 | ED.PDOC ---
History of Present Illness - General Chief Complaint: GI Problem Stated Complaint: Chronic diarrhea and nausea Time Seen by Provider: 06/22/18 12:30 Source: patient, RN notes reviewed, Vital Signs reviewed Additional Information: 73 YEAR OLD WHITE MALE WITH KNOWN HISTORY OF CROHNS DISEASE SEEN AT THE CLINIC TODAY AND SENT OVER FOR EVALUATION OF POSSIBLE BOWEL OBSTRUCTION HE HAS BEEN FEELING NUASEATED AND EXPERIENCING ABDOMINAL DISCOMFORT FOR THE PAST 3-4 DAYS HE HAS HAD NORMAL WELL FORMED BOWEL MOVEMENT TODAY - History of Present Illness Severity: moderate Improving Factors: nothing Allergies/Adverse Reactions: Allergies Tetanus Toxoid Allergy (Verified 05/09/18 14:08) Swelling of extremities Home Medications: Ambulatory Orders Amlodipine Besylate 10 mg PO DAILY 07/13/13 Clonidine HCl 0.1 mg PO BID 07/13/13 Enalapril Maleate 20 mg PO BID 07/13/13 Metoprolol Tartrate 100 mg PO BID 07/13/13 Lansoprazole [Prevacid] 30 mg PO DAILY 08/09/14 Insulin Aspart Protamine & Asp [Novolog Mix 70/30 (70-30) 100 Unit/ml] 22 unit SC BID 05/25/15 Magnesium Chloride-Calcium Car [Slow-Mag 71.5-119 mg] 1 tab PO DAILY 05/25/15 Potassium Chloride Tab [K-Dur] 20 meq PO DAILYBK #30 tab 06/23/16 Vdxvowpzinaup-Ooya-Xxrkjdftlf [Fioricet] 1 ea PO Q8H PRN #21 tab 09/30/17 Colchicine 0.6 mg PO Q2H PRN #10 tab 09/30/17 Review of Systems - Review of Systems Constitutional: States: weakness EENTM: States: no symptoms reported Respiratory: States: no symptoms reported Cardiology: States: no symptoms reported Gastrointestinal/Abdominal: States: nausea Genitourinary: States: no symptoms reported Musculoskeletal: States: no symptoms reported Skin: States: no symptoms reported Neurological: States: no symptoms reported Endocrine: States: no symptoms reported Hematologic/Lymphatic: States: no symptoms reported Past Medical History (General) - Patient Medical History Hx Seizures: No Hx Stroke: No Hx Asthma: No Hx of COPD: Yes Hx Cardiac Disorders: Yes - CAD Hx Congestive Heart Failure: No Hx Pacemaker: No Hx Hypertension: Yes Hx Diabetes: Yes Hx Gastroesophageal Reflux: Yes Hx MRSA: Yes MRSA Source:: colon surg - Vaccination History Hx Tetanus, Diphtheria Vaccination: Yes Hx Influenza Vaccination: Yes - 2017 Hx Pneumococcal Vaccination: Yes - Social History Hx Tobacco Use: Yes Hx Alcohol Use: No Hx Substance Use: No Hx Substance Use Treatment: No Hx Physical Abuse: No Hx Emotional Abuse: No - Female History Patient : No Family Medical History - Family History Father Family History: Unknown Living Status: Age at (years of age): 62 Cause of : "blood poisoning" Hx Family Diabetes: Yes - mom Physical Exam - Physical Exam General Appearance: Alert Eye Exam: bilateral normal Ears, Nose, Throat: hearing grossly normal, normal ENT inspection, normal pharynx Neck: non-tender, full range of motion, supple Respiratory: chest non-tender, lungs clear, normal breath sounds, no respiratory distress, no accessory muscle use Cardiovascular/Chest: normal peripheral pulses, regular rate, rhythm, no edema, no gallop, no JVD, no murmur Peripheral Pulses: radial,right: 2+, radial,left: 2+, femoral,right: 2+, femoral ,left: 2+ Gastrointestinal/Abdominal: normal bowel sounds, non tender, soft, distended, hernia Back Exam: normal inspection, no CVA tenderness, no vertebral tenderness Extremity: normal range of motion 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, no motor/sensory deficits, alert, normal mood/affect, oriented x 3 Progress - Results/Orders Results/Orders: LAB FROM THE CLINIC REVIEWED GLUCOSE 121 BUN 21 NA 144 CL 116 CR 3.8 CALCIUM 6.7 K 3.4 CO2 18 LFT NORMAL WBC 16.6 H/H 11.1 32.5 NEUTROPHILS 84 % NO BANDS PLT 236 ABDOMINAL X RAY MULTIPLE AIR FLUID LEVELS Laboratory Tests 06/22/18 13:08 Magnesium 0.8 L* PT RECEIVED IV FLUIDS IV CALCIUM GLUCONATE IV MAG 2 GM HE FEELS BETTER HE VOIDED LIKES TO GO HOME HE WAS ADVISED TO FOLLOW UP WITH GASTRO ENTEROLOGIST OF HIS CHOICE ABOUT MANAGEMENT OF HIS CROHNS DISEASE Departure - Departure Clinical Impression: Crohns disease, Electrolyte abnormality, Hypocalcemia Time of Disposition: 16:06 Disposition: Discharge to Home or Self Care Condition: Good Departure Forms: ED Discharge - Pt. Copy, Patient Portal Self Enrollment Referrals: Jamel Gracia MD [Primary Care Provider] - 1-2 Weeks Home Medications: Ambulatory Orders Amlodipine Besylate 10 mg PO DAILY 07/13/13 Clonidine HCl 0.1 mg PO BID 07/13/13 Enalapril Maleate 20 mg PO BID 07/13/13 Metoprolol Tartrate 100 mg PO BID 07/13/13 Lansoprazole [Prevacid] 30 mg PO DAILY 08/09/14 Insulin Aspart Protamine & Asp [Novolog Mix 70/30 (70-30) 100 Unit/ml] 22 unit SC BID 05/25/15 Magnesium Chloride-Calcium Car [Slow-Mag 71.5-119 mg] 1 tab PO DAILY 05/25/15 Potassium Chloride Tab [K-Dur] 20 meq PO DAILYBK #30 tab 06/23/16 Hsfexgceiukkk-Annn-Munukoqtsp [Fioricet] 1 ea PO Q8H PRN #21 tab 09/30/17 Colchicine 0.6 mg PO Q2H PRN #10 tab 09/30/17
[2018-06-22] MEDS ORDERED: CALCIUM GLUCONATE INJ 2 GM in SODIUM CHLORIDE 0.9% 100ML 100 ML IVPB ONE (13:00)
[2018-06-22] MEDS ORDERED: SODIUM CHLORIDE 0.9% 1000ML 1,000 ML IVS ONE (13:00)
--- NOTE | 2018-06-22 13:34 | CT ---
EXAM DESCRIPTION: Abdoment/Pelvis w/o Contrast CLINICAL HISTORY: 73 years Male, NAUSEA H/O CROHNS DISEASE AND BOWEL RESECTION COMPARISON: None available. TECHNIQUE: Contiguous 3 mm axial images were obtained from the lung bases to the level of the proximal femora without the administration of intravenous or oral contrast. Sagittal and coronal reconstructions were reviewed. FINDINGS: Limited evaluation of the solid organs due to the lack of intravenous contrast. THORAX: Linear subsegmental atelectasis is noted in the left lower lobe. The imaged lower thorax otherwise appears normal. LIVER: The liver demonstrates normal size and density with no intrahepatic biliary ductal dilatation. GALLBLADDER: The gallbladder is not well distended with multiple calculi. PANCREAS: Appears normal with no cystic or solid lesions. SPLEEN: Normal ADRENAL GLANDS: 1.8 cm right adrenal adenoma is noted. There is a 2.1 x 2.6 cm left adrenal adenoma. KIDNEYS: 9 mm hyperdense cyst is noted in the interpolar region of the left kidney. Nonobstructive calculi measuring up to 4 mm are noted in both kidneys. No hydronephrosis or perinephric fluid collections bilaterally. The visualized ureters appear grossly unremarkable. STOMACH: The stomach is not well-distended limiting detailed evaluation. SMALL BOWEL: There is wall thickening and surrounding inflammatory stranding of the distal ileal loop leading up to the terminal ileum, most likely representing ileitis. LARGE BOWEL: The colon is distended throughout its length with liquid fecal material. The appendix is not definitely visualized, however no secondary signs to suggest acute appendicitis. No evidence of free intraperitoneal air or fluid. RETROPERITONEUM: The abdominal aorta is nonaneurysmal with moderate atherosclerosis. The inferior vena cava is normal in size and caliber. No abnormally enlarged retroperitoneal lymph nodes are identified. URINARY BLADDER:The urinary bladder is well-distended with no gross abnormality. There is herniation of a portion of the dome of the urinary bladder into the right inguinal hernia. The prostate gland is prominent in size projecting into the base of the bladder. The seminal vesicles appear normal. ADDITIONAL FINDINGS: Fat-containing bilateral inguinal hernias are noted. BONES: Mild degenerative changes are identified in the visualized bones.No evidence of osteophytic or osteoblastic lesions. IMPRESSION: 1. Inflammatory changes are noted surrounding the distal ileal loops leading up to the terminal ileum. Findings are suggestive of ileitis. Inflammatory bowel disease is a differential consideration. 2. Bilateral inguinal hernias. There is herniation of a portion of the dome of the urinary bladder into the right inguinal hernia. 3. Bilateral adrenal adenomas. 4. Cholelithiasis. This exam was performed according to our departmental dose-optimization program, which includes automated exposure control, adjustment of the mA and/or kV according to patient size and/or use of iterative reconstruction technique. Electronically signed by: Ann Coker MD 06/22/2018 1:32 PM CDT
[2018-06-22] MEDS ORDERED: CALCIUM GLUCONATE INJ 1 GM/10 ML VIAL ONE (13:51)
[2018-06-22] MEDS ORDERED: SODIUM CHLORIDE 0.9% 100ML 100 ML IVPB ONE (13:51)
[2018-06-22] MEDS ORDERED: MAGNESIUM SULFATE PREMIX 2GM 2 GM in PREMIX BAG 1 BAG IVPB ONE (13:58)
[2018-06-22] MEDS ORDERED: methylPREDNISolone SODIUM SUC 125 MG/2 ML VIAL IV ONE (13:58)
[2018-06-22] MEDS ORDERED: MAGNESIUM SULFATE PREMIX 2GM 50 ML IVPB ONE (15:31)
[2018-06-22 15:40] VITALS: BP 156/77; O2SAT 98
== END 2018-06-22 17:20 | disposition home or self-care (01) ==
LOC: ER 12:16
DX: K50.90 Crohn's disease, unspecified, without complications (principal); E87.8 Other disorders of electrolyte and fluid balance, not elsewhere classified; E83.51 Hypocalcemia; J44.9 Chronic obstructive pulmonary disease, unspecified; I25.10 Atherosclerotic heart disease of native coronary artery without angina pectoris; I10 Essential (primary) hypertension; E11.9 Type 2 diabetes mellitus without complications; K21.9 Gastro-esophageal reflux disease without esophagitis; Z87.891 Personal history of nicotine dependence; Z79.4 Long term (current) use of insulin; Z79.899 Other long term (current) drug therapy; Z88.7 Allergy status to serum and vaccine
CPT/HCPCS: 36415; 74176; 83735; J2930; J3475; J7030; J7050

== ENCOUNTER 2018-08-07 13:52 | Emergency (ER) | payer MEDICARE ==
[2018-08-07 14:07] VITALS: TEMP 98.3
--- NOTE | 2018-08-07 14:32 | ED.PDOC ---
History of Present Illness - General Chief Complaint: General Stated Complaint: nausea, tingling in fingers Time Seen by Provider: 08/07/18 14:27 Source: patient, Vital Signs reviewed Exam Limitations: no limitations Additional Information: 73 YEAR OLD GENTLEMEN PRESENTS TO THE ER WITH COMPLAINTS OF TINGLING AND NUMBNESS IN THE UPPER EXTREMITIES HE HAS BEEN DEALING CHRONIC DIARRHEA FOR ALMOST 4 DECADES 39 YEARS AGO HE HAD A SMALL BOWEL RESECTION FOR BOWEL OBSTRUCTION AND AT THAT TIME THEY THOUGHT HE HAD CROHNS DISEASE BUT IT WAS NEVER PROVEN WITH A BIOPSY HE HAD A RECENT COLONOSCOPY AT [facility] BY DR SANTAMARIA THAT WAS REPORTED NORMAL AND HE IS GOING HAVE A SMALL BOWEL FOLLOW THROUGH SCHEDULED SOMETIMES NEXT FEW WEEKS - History of Present Illness Timing/Duration: 1 week Severity: moderate Improving Factors: nothing Worsening Factors: nothing Associated Symptoms: weakness Allergies/Adverse Reactions: Allergies Tetanus Toxoid Allergy (Verified 05/09/18 14:08) Swelling of extremities Home Medications: Ambulatory Orders Amlodipine Besylate 10 mg PO DAILY 07/13/13 Clonidine HCl 0.1 mg PO BID 07/13/13 Enalapril Maleate 20 mg PO BID 07/13/13 Metoprolol Tartrate 100 mg PO BID 07/13/13 Lansoprazole [Prevacid] 30 mg PO DAILY 08/09/14 Insulin Aspart Protamine & Asp [Novolog Mix 70/30 (70-30) 100 Unit/ml] 22 unit SC BID 05/25/15 Magnesium Chloride-Calcium Car [Slow-Mag 71.5-119 mg] 1 tab PO DAILY 05/25/15 Potassium Chloride Tab [K-Dur] 20 meq PO DAILYBK #30 tab 06/23/16 Hencqidulbxei-Ydnc-Figdpvcrhz [Fioricet] 1 ea PO Q8H PRN #21 tab 09/30/17 Colchicine 0.6 mg PO Q2H PRN #10 tab 09/30/17 Review of Systems - Review of Systems Constitutional: States: malaise, weakness EENTM: States: no symptoms reported Respiratory: States: no symptoms reported Cardiology: States: no symptoms reported Gastrointestinal/Abdominal: States: no symptoms reported Genitourinary: States: no symptoms reported Musculoskeletal: States: no symptoms reported Skin: States: no symptoms reported Neurological: States: no symptoms reported Endocrine: States: no symptoms reported Hematologic/Lymphatic: States: no symptoms reported Past Medical History (General) - Patient Medical History Hx Seizures: No Hx Stroke: No Hx Asthma: No Hx of COPD: Yes Hx Cardiac Disorders: Yes - CAD Hx Congestive Heart Failure: No Hx Pacemaker: No Hx Hypertension: Yes Hx Thyroid Disease: No Hx Diabetes: Yes Hx Gastroesophageal Reflux: Yes Hx Cancer: No Hx MRSA: Yes MRSA Source:: colon surg Surgical History: appendectomy - Vaccination History Hx Tetanus, Diphtheria Vaccination: Yes - had allergic reaction. Hx Influenza Vaccination: Yes Hx Pneumococcal Vaccination: Yes Immunizations Up to Date: Yes - Social History Hx Tobacco Use: Yes Hx Alcohol Use: No Hx Substance Use: No Hx Substance Use Treatment: No Hx Physical Abuse: No Hx Emotional Abuse: No - Female History Patient : No Family Medical History - Family History Father Family History: Unknown Living Status: Age at (years of age): 64 Cause of : "blood poisoning" Hx Family Diabetes: Yes - mom Physical Exam - Physical Exam General Appearance: Alert, Comfortable Eye Exam: bilateral normal Ears, Nose, Throat: hearing grossly normal, normal ENT inspection, normal pharynx Neck: non-tender, full range of motion, supple Respiratory: chest non-tender, lungs clear, normal breath sounds, no respiratory distress Cardiovascular/Chest: normal peripheral pulses, regular rate, rhythm, no edema, no gallop Peripheral Pulses: radial,right: 2+ Gastrointestinal/Abdominal: normal bowel sounds, non tender, soft, no organomegaly, no pulsatile mass, other Progress - Results/Orders Results/Orders: Laboratory Tests 08/07/18 08/07/18 08/07/18 14:45 14:45 14:59 WBC 9.3 RBC 3.38 L Hgb 10.3 L Hct 31.4 L MCV 92.9 MCH 30.4 MCHC 32.8 L RDW 15.2 H Plt Count 137 MPV 10.4 Absolute Neuts (auto) 7.10 H Absolute Lymphs (auto) 1.20 Absolute Monos (auto) 0.70 Absolute Eos (auto) 0.20 Absolute Basos (auto) 0.10 Neutrophils % 76.4 Lymphocytes % 13.2 L Monocytes % 7.1 Eosinophils % 2.3 Basophils % 1.0 Sodium 141 Potassium 3.2 L Chloride 113 H Carbon Dioxide 18 L Anion Gap 13.2 BUN 29 H Creatinine 3.14 H BUN/Creatinine Ratio 9.2 L Random Glucose 247 H Serum Osmolality 295.3 H Calcium 6.3 L* Magnesium < 0.8 L* 5 00 pm Reassesment PT STATES HE FEELS LIKE A NEW PERSON CAN GO HOME ADVISED CHOOSE FOOD RICH IN MAG AND CALCIUM A LIST WAS GIVEN TO HIM THAT ARE RICH SOURCE OF MAGNISIUM AND CALCIUM Departure - Departure Clinical Impression: Hypomagnesemia, Hypocalcemia Time of Disposition: 17:01 Disposition: Discharge to Home or Self Care Condition: Fair Departure Forms: ED Discharge - Pt. Copy, Patient Portal Self Enrollment Diet: resume usual diet Referrals: PANFILO RIBERA MD [Primary Care Provider] - 1-2 Weeks Home Medications: Ambulatory Orders Amlodipine Besylate 10 mg PO DAILY 07/13/13 Clonidine HCl 0.1 mg PO BID 07/13/13 Enalapril Maleate 20 mg PO BID 07/13/13 Metoprolol Tartrate 100 mg PO BID 07/13/13 Lansoprazole [Prevacid] 30 mg PO DAILY 08/09/14 Insulin Aspart Protamine & Asp [Novolog Mix 70/30 (70-30) 100 Unit/ml] 22 unit SC BID 05/25/15 Magnesium Chloride-Calcium Car [Slow-Mag 71.5-119 mg] 1 tab PO DAILY 05/25/15 Potassium Chloride Tab [K-Dur] 20 meq PO DAILYBK #30 tab 06/23/16 Kaixjmkhdtlnz-Vjoc-Fcmxfiaqdk [Fioricet] 1 ea PO Q8H PRN #21 tab 09/30/17 Colchicine 0.6 mg PO Q2H PRN #10 tab 09/30/17
[2018-08-07] MEDS ORDERED: SODIUM CHLORIDE 0.9% 1000ML 1,000 ML IVS ONE (15:08)
[2018-08-07] MEDS ORDERED: MAGNESIUM SULFATE PREMIX 2GM 2 GM in PREMIX BAG 1 BAG IVPB ONE (15:08)
[2018-08-07] MEDS ORDERED: SODIUM CHLORIDE 0.9% 1000ML 1,000 ML ONE (15:09)
[2018-08-07] MEDS ORDERED: MAGNESIUM SULFATE PREMIX 2GM 50 ML IVPB ONE (15:12)
[2018-08-07] MEDS ORDERED: CALCIUM GLUCONATE INJ 1 GM/10 ML VIAL ONE (16:19)
[2018-08-07] MEDS ORDERED: CALCIUM GLUCONATE INJ 1 GM/10 ML VIAL IV ONE (16:19)
[2018-08-07 16:50] VITALS: BP 166/78; O2SAT 99
== END 2018-08-07 17:07 | disposition home or self-care (01) ==
LOC: ER 13:52
DX: E83.42 Hypomagnesemia (principal); E83.51 Hypocalcemia; R11.0 Nausea; R20.2 Paresthesia of skin; J44.9 Chronic obstructive pulmonary disease, unspecified; I25.10 Atherosclerotic heart disease of native coronary artery without angina pectoris; I10 Essential (primary) hypertension; E11.9 Type 2 diabetes mellitus without complications; K21.9 Gastro-esophageal reflux disease without esophagitis; Z90.49 Acquired absence of other specified parts of digestive tract; Z87.891 Personal history of nicotine dependence; Z79.4 Long term (current) use of insulin; Z79.899 Other long term (current) drug therapy; Z88.7 Allergy status to serum and vaccine
CPT/HCPCS: 36415; 80048; 83735; 85025; J3475; J7030

== ENCOUNTER 2018-08-08 06:46 | Emergency (ER) | payer MEDICARE ==
[2018-08-08 07:20] VITALS: TEMP 98.6; O2SAT 100
[2018-08-08] MEDS ORDERED: ONDANSETRON INJ 4 MG/2 ML VIAL IV ONE (07:31)
--- NOTE | 2018-08-08 07:45 | ED.PDOC ---
History of Present Illness - General Chief Complaint: Abdominal Pain Time Seen by Provider: 08/08/18 07:11 Information Source: patient, Vital Signs reviewed, family Exam Limitations: no limitations - History of Present Illness Initial Comments: Woke up this morning with nausea & vomiting. No pain. [place] fine when he went to bed. Ran out of Zofran so he has nothing to treat it with. Was seen here yesterday for chronic & recurring hypomagnesemia & hypocalcemia. None of his symptoms from yesterday are present today. Timing/Duration: 1-3 hours Improving Factors: nothing Worsening Factors: nothing Associated Symptoms: denies symptoms Review of Systems - Review of Systems Constitutional: States: see HPI EENTM: States: no symptoms reported Respiratory: States: no symptoms reported Cardiology: States: no symptoms reported Gastrointestinal/Abdominal: States: see HPI. Denies: abdominal pain Genitourinary: States: no symptoms reported Musculoskeletal: States: no symptoms reported Skin: States: no symptoms reported Neurological: States: no symptoms reported Endocrine: States: see HPI Past Medical History (General) - Patient Medical History Hx Seizures: No Hx Stroke: No Hx Asthma: No Hx of COPD: No Hx Cardiac Disorders: No Hx Congestive Heart Failure: No Hx Pacemaker: No Hx Hypertension: No Hx Thyroid Disease: No Hx Diabetes: Yes Hx Gastroesophageal Reflux: Yes Hx Cancer: No Hx Hepatitis C: No Hx MRSA: Yes MRSA Source:: colon surg - Vaccination History Hx Tetanus, Diphtheria Vaccination: No Hx Influenza Vaccination: No Hx Pneumococcal Vaccination: No Immunizations Up to Date: No - Social History Hx Tobacco Use: No Hx Chewing Tobacco Use: No Hx Alcohol Use: No Hx Substance Use: No Hx Substance Use Treatment: No Hx Depression: No Feels Threatened In Home Enviroment: No Feels Threatened In a Relationship: No Hx Physical Abuse: No Hx Emotional Abuse: No Hx Suspected Abuse: No - Activities of Daily Living Hospice Agency (if applicable):: None - Female History Patient is a Female of Child Bearing Age (10 -59 yrs old): No Patient : No Family Medical History - Family History Father Family History: Unknown Living Status: Age at (years of age): 64 Cause of : "blood poisoning" Hx Family Diabetes: Yes - mom Physical Exam - Physical Exam General Appearance: Alert, Comfortable, No apparent distress Eyes, Ears, Nose, Throat Exam: other - moist mucosa; anicteric; pink conjunctiva Neck: supple, normal inspection Respiratory: no respiratory distress Cardiovascular/Chest: normal peripheral pulses, no edema Gastrointestinal/Abdominal: non tender, soft, no organomegaly Extremity: normal range of motion, normal inspection, normal capillary refill Neurologic: no motor/sensory deficits, alert, normal mood/affect, oriented x 3 Skin Exam: normal color, warm/dry Special Observations: No evidence of discomfort, Smiling Progress - Progress Progress: 08/08/18 08:12 Asymptomatic. Lab reviewed with him. He agreed to electrolyte infusions but declined admission. 08/08/18 09:36 Sleeping. Has been tolerating PO. - Results/Orders Results/Orders: Magnesium 1.0 K 3.4 Ca 7 - EKG/XRAY/CT CT Ordered: No CT Interpretation Call Back: No Departure - Departure Clinical Impression: Hypomagnesemia, Hypocalcemia Vomiting Qualifiers: Vomiting type: unspecified Vomiting Intractability: non-intractable Nausea presence: with nausea Qualified Code(s): R11.2 - Nausea with vomiting, unspecified Time of Disposition: 09:39 Disposition: Discharge to Home or Self Care Condition: Good Departure Forms: ED Discharge - Pt. Copy, Patient Portal Self Enrollment Instructions: Nausea and Vomiting, Adult (DC), Low Magnesium Level (DC), Hypocalcemia (DC) Referrals: PANFILO RIBERA MD [Primary Care Provider] - 08/10/18 Prescriptions: Ondansetron [Zofran Odt] 4 mg PO Q4H PRN #10 tab PRN Reason: Vomiting Home Medications: Ambulatory Orders Amlodipine Besylate 10 mg PO DAILY 07/13/13 Clonidine HCl 0.1 mg PO BID 07/13/13 Enalapril Maleate 20 mg PO BID 07/13/13 Metoprolol Tartrate 100 mg PO BID 07/13/13 Lansoprazole [Prevacid] 30 mg PO DAILY 08/09/14 Insulin Aspart Protamine & Asp [Novolog Mix 70/30 (70-30) 100 Unit/ml] 22 unit SC BID 05/25/15 Magnesium Chloride-Calcium Car [Slow-Mag 71.5-119 mg] 1 tab PO DAILY 05/25/15 Potassium Chloride Tab [K-Dur] 20 meq PO DAILYBK #30 tab 06/23/16 Epfrloxyvsiyt-Usmj-Xgpfnicecn [Fioricet] 1 ea PO Q8H PRN #21 tab 09/30/17 Colchicine 0.6 mg PO Q2H PRN #10 tab 09/30/17 Ondansetron [Zofran Odt] 4 mg PO Q4H PRN #10 tab 08/08/18
[2018-08-08] MEDS ORDERED: MAGNESIUM SULFATE PREMIX 2GM 2 GM in PREMIX BAG 1 BAG IVPB ONE (08:13)
[2018-08-08] MEDS ORDERED: CALCIUM GLUCONATE INJ 1 GM/10 ML VIAL IV ONE (08:13)
[2018-08-08] MEDS ORDERED: MAGNESIUM SULFATE PREMIX 2GM 50 ML IVPB ONE (08:17)
[2018-08-08 09:52] VITALS: BP 178/79
== END 2018-08-08 09:51 | disposition home or self-care (01) ==
LOC: ER 06:46
DX: R11.2 Nausea with vomiting, unspecified (principal); E83.42 Hypomagnesemia; E83.51 Hypocalcemia; K21.9 Gastro-esophageal reflux disease without esophagitis; E11.9 Type 2 diabetes mellitus without complications; Z79.899 Other long term (current) drug therapy
CPT/HCPCS: 36415; 80053; 83735; 85025; J2405; J3475

== ENCOUNTER 2018-08-09 03:17 | Emergency (ER) | payer MEDICARE ==
[2018-08-09 03:36] VITALS: TEMP 98.3
[2018-08-09] MEDS ORDERED: SODIUM CHLORIDE 0.9% 1000ML 1,000 ML IVS ONE (03:43)
[2018-08-09] MEDS ORDERED: PROMETHAZINE HCL INJ 12.5 MG in SODIUM CHLORIDE 0.9% 50ML 50 ML IVPB ONE (03:44)
[2018-08-09] MEDS ORDERED: PROMETHAZINE HCL INJ 25 MG/ML VIAL ONE (03:47)
[2018-08-09] MEDS ORDERED: SODIUM CHLORIDE 0.9% 50ML 50 ML ONE ×2 (03:47→04:17)
[2018-08-09] MEDS ORDERED: CALCIUM GLUCONATE INJ 1 GM in SODIUM CHLORIDE 0.9% 50ML 50 ML IVPB ONE (04:15)
[2018-08-09] MEDS ORDERED: MAGNESIUM SULFATE PREMIX 2GM 2 GM in PREMIX BAG 1 BAG IVPB ONE (04:15)
[2018-08-09] MEDS ORDERED: CALCIUM GLUCONATE INJ 1 GM/10 ML VIAL ONE (04:17)
[2018-08-09] MEDS ORDERED: MAGNESIUM SULFATE PREMIX 2GM 50 ML IVPB ONE (04:18)
--- NOTE | 2018-08-09 04:30 | ED.PDOC ---
History of Present Illness - General Chief Complaint: GI Problem Stated Complaint: nausea, vomitin, hypertension Time Seen by Provider: 08/09/18 03:43 Information Source: patient, family Exam Limitations: no limitations - History of Present Illness Initial Comments: Returns with nausea resistant to the Zofran he was prescribed yesterday. Whenever he tries to eat it makes the nausea so much worse. He denies actually vomiting or of having any pain anywhere. His chronic diarrhea continues but with less volume as he thinks he is dehydrated. He denies having any of the paresthesias he usually gets with his recurring electrolyte disorders but he is convinced that is what is causing the nausea. He has had 2 magnesium & calcium infusions within the last 36 hours & is on supplementation. Abdominal Pain Onset Location: other - none Timing/Duration: 24 hours Improving Factors: nothing Worsening Factors: eating Associated Symptoms: weakness Review of Systems - Review of Systems Constitutional: States: see HPI, weakness EENTM: States: no symptoms reported Respiratory: States: no symptoms reported Cardiology: States: no symptoms reported Gastrointestinal/Abdominal: States: see HPI, diarrhea, nausea. Denies: abdominal pain, vomiting Genitourinary: States: no symptoms reported Musculoskeletal: States: no symptoms reported Skin: States: no symptoms reported Neurological: States: weakness. Denies: numbness, paresthesia, tingling, tremors Endocrine: Denies: increased thirst, increased urine Past Medical History (General) - Patient Medical History Hx Seizures: No Hx Stroke: No Hx Dementia: No Hx Asthma: No Hx of COPD: No Hx Cardiac Disorders: No Hx Congestive Heart Failure: No Hx Pacemaker: No Hx Hypertension: No Hx Thyroid Disease: No Hx Diabetes: Yes Hx Gastroesophageal Reflux: Yes Hx Renal Disease: No Hx Cancer: No Hx of HIV: No Hx Hepatitis C: No Hx MRSA: Yes Hx Other - free text: recurring hypomagnesemia & hypocalcemia MRSA Source:: Wound Surgical History: colectomy - Vaccination History Hx Tetanus, Diphtheria Vaccination: - allergic to tetnus Hx Influenza Vaccination: No Hx Pneumococcal Vaccination: No - Social History Hx Tobacco Use: Yes Hx Chewing Tobacco Use: No Hx Alcohol Use: No Hx Substance Use: No Hx Substance Use Treatment: No Hx Depression: No Hx Physical Abuse: No Hx Emotional Abuse: No Hx Suspected Abuse: No - Female History Patient : No - Triage Comment ED Triage Comment: thisis pts 3rd visit to er in 3 days, states same problem, Family Medical History - Family History Father Family History: Unknown Living Status: Age at (years of age): 64 Cause of : "blood poisoning" Hx Family Diabetes: Yes - mom Physical Exam - Physical Exam General Appearance: Alert, Comfortable, No apparent distress Eyes, Ears, Nose, Throat Exam: other - dry tongue; anicteric Neck: full range of motion, supple, normal inspection Respiratory: normal breath sounds, no respiratory distress Cardiovascular/Chest: regular rate, rhythm, no gallop, no murmur, tachycardia Gastrointestinal/Abdominal: non tender, soft, no organomegaly Extremity: normal range of motion, normal inspection Neurologic: no motor/sensory deficits, alert, normal mood/affect, oriented x 3 Skin Exam: normal color, warm/dry Special Observations: No evidence of discomfort Progress - Progress Progress: 08/09/18 04:32 Says he feels much better after the Phenergan. 08/09/18 06:20 Asymptomatic. Wants to go home. - Results/Orders Results/Orders: Mg 1.4 Ca 7 Departure - Departure Clinical Impression: Nausea, Hypomagnesemia, Hypocalcemia Time of Disposition: 06:21 Disposition: Discharge to Home or Self Care Condition: Good Departure Forms: ED Discharge - Pt. Copy, Patient Portal Self Enrollment Instructions: DI for Diarrhea and Traveler's Diarrhea -- Adult Referrals: PANFILO RIBERA MD [Primary Care Provider] - 08/10/18 Prescriptions: Promethazine Tab [Phenergan Tablet] 25 mg PO .Q4H PRN #5 tab PRN Reason: Nausea -- Breakthrough Home Medications: Ambulatory Orders Amlodipine Besylate 10 mg PO DAILY 07/13/13 Clonidine HCl 0.1 mg PO BID 07/13/13 Enalapril Maleate 20 mg PO BID 07/13/13 Metoprolol Tartrate 100 mg PO BID 07/13/13 Lansoprazole [Prevacid] 30 mg PO DAILY 08/09/14 Insulin Aspart Protamine & Asp [Novolog Mix 70/30 (70-30) 100 Unit/ml] 22 unit SC BID 05/25/15 Magnesium Chloride-Calcium Car [Slow-Mag 71.5-119 mg] 1 tab PO DAILY 05/25/15 Potassium Chloride Tab [K-Dur] 20 meq PO DAILYBK #30 tab 06/23/16 Pljlwdlzdwptf-Jmyn-Vcuuofabvh [Fioricet] 1 ea PO Q8H PRN #21 tab 09/30/17 Colchicine 0.6 mg PO Q2H PRN #10 tab 09/30/17 Ondansetron [Zofran Odt] 4 mg PO Q4H PRN #10 tab 08/08/18 Promethazine Tab [Phenergan Tablet] 25 mg PO .Q4H PRN #5 tab 08/09/18
[2018-08-09 05:07] VITALS: O2SAT 98
[2018-08-09 06:31] VITALS: BP 178/81
== END 2018-08-09 06:31 | disposition home or self-care (01) ==
LOC: ER 03:17
DX: R11.0 Nausea (principal); E83.42 Hypomagnesemia; E83.51 Hypocalcemia; R19.7 Diarrhea, unspecified; R53.1 Weakness; E11.9 Type 2 diabetes mellitus without complications; K21.9 Gastro-esophageal reflux disease without esophagitis; Z79.4 Long term (current) use of insulin; Z79.899 Other long term (current) drug therapy; Z87.891 Personal history of nicotine dependence
CPT/HCPCS: 36415; 80053; 83735; 85025; A4216; J2550; J3475; J7030

== ENCOUNTER → 2018-08-12 | Outpatient (CLI) | payer MEDICARE | LOC: GMAE 09:42 | PROVIDERS: ATTEND Family Medicine | DX: E83.42 Hypomagnesemia (principal) ==

== ENCOUNTER 2018-08-22 20:23 | Emergency (ER) | payer MEDICARE ==
[2018-08-22] MEDS ORDERED: IPRATROPIUM/ALBUTEROL 3 ML VIAL NEB ONE ×3 (20:25→23:14)
[2018-08-22] MEDS ORDERED: ALBUTEROL SULFATE 2.5 MG/3 ML VIAL NEB ONE ×3 (20:25→22:35)
[2018-08-22] MEDS ORDERED: methylPREDNISolone SODIUM SUC 125 MG/2 ML VIAL IV ONE (20:26)
--- NOTE | 2018-08-22 21:01 | RAD ---
PROCEDURE: XR Chest, 1 View CLINICAL INDICATION: The patient is 73 years old and is Male; sob, copd TECHNIQUE: Frontal view of the chest. COMPARISON: Comparison is made to the prior study dated 06/06/2017 FINDINGS: LUNGS: There is new patchy bibasilar atelectasis. Pulmonary vascularity is newly engorged. PLEURAL SPACE: There are new small bilateral pleural effusions. There is NO pneumothorax. HEART: The heart size is enlarged. MEDIASTINUM: The mediastinal contour is unremarkable. BONES/JOINTS: No acute abnormality. VASCULATURE: The aortic knob is calcified. TUBES, LINES AND DEVICES: There are electrocardiogram leads present. OTHER FINDINGS: The view is lordotic. IMPRESSION: 1. There is new patchy bibasilar atelectasis. 2. There are new small bilateral pleural effusions. 3. Findings suggestive of acute decompensated congestive heart failure with cardiomegaly and pulmonary vascular congestion in addition to above. Electronically signed by: Tyler Low MD 08/22/2018 8:59 PM CDT
[2018-08-22] MEDS ORDERED: NITROGLYCERIN 2% 1 GM UD TOP ONE (21:32)
[2018-08-22] MEDS ORDERED: MAGNESIUM SULFATE PREMIX 4GM 4 GM in PREMIX BAG 1 BAG IVPB ONE (22:21)
[2018-08-22] MEDS ORDERED: MAGNESIUM SULFATE PREMIX 4GM 50 ML IVPB ONE (22:24)
[2018-08-22] MEDS ORDERED: ASPIRIN TABLET 325 MG TAB PO ONE (23:14)
[2018-08-22] MEDS ORDERED: HEPARIN SODIUM (PORCINE) 5,000 U/ML VIAL IV ONE (23:14)
[2018-08-22] MEDS ORDERED: MONTELUKAST 10 MG TAB ONE (23:38)
[2018-08-23] MEDS ORDERED: AZITHROMYCIN IV 500 MG in SODIUM CHLORIDE 0.9% 250ML 250 ML IVPB ONE (00:55)
[2018-08-23] MEDS ORDERED: SODIUM CHLORIDE 0.9% 250ML 250 ML ONE (01:12)
[2018-08-23] MEDS ORDERED: AZITHROMYCIN IV 500 MG VIAL IVPB ONE (01:12)
--- NOTE | 2018-08-23 02:13 | ED.PDOC ---
History of Present Illness - General Chief Complaint: Respiratory Problem Stated Complaint: severe short of breath Time Seen by Provider: 08/22/18 20:25 Source: patient, family Exam Limitations: no limitations - History of Present Illness Initial Comments: the patient is a 73-year-old male presenting to the emergency room secondary to respiratory distress that has been progressive over the last week. He is still saturating greater than 90% on room air however he is in significant distress. He is breathing more than 40 times a minute and moving very little air. There is markedly accessory muscle use and nasal flaring. Ears tripod positioning. The patient does have a history of COPD. He also has a history of chronic renal insufficiency. He does have a history of hypertension as well. Blood pressures are significantly eld here greater than 200 on the systolic end. He has mildly tachycardic as well. He does not think that he has had any fever. He has had a productive cough. He is an insulin- dependent diabetic. His primary care doctor did put him on a oral antibiotic and oral prednisone earlier in the week. He does have chronic dependent edema and has had for several years according to him. He does have chronic renal insufficiency with baseline creatinine of around 2.5. He has seen Dr. Wagner in the past. He has not had any chest pains though he has had shortness of breath. He does still smoke. Timing/Duration: 1 week Severity: severe Improving Factors: nothing Worsening Factors: movement Associated Symptoms: cough, diaphoresis, malaise, shortness of breath, weakness Allergies/Adverse Reactions: Allergies Tetanus Toxoid Allergy (Verified 05/09/18 14:08) Swelling of extremities Home Medications: Ambulatory Orders Amlodipine Besylate 10 mg PO DAILY 07/13/13 Clonidine HCl 0.1 mg PO BID 07/13/13 Enalapril Maleate 20 mg PO BID 07/13/13 Metoprolol Tartrate 100 mg PO BID 07/13/13 Lansoprazole [Prevacid] 30 mg PO DAILY 08/09/14 Insulin Aspart Protamine & Asp [Novolog Mix 70/30 (70-30) 100 Unit/ml] 22 unit SC BID 05/25/15 Magnesium Chloride-Calcium Car [Slow-Mag 71.5-119 mg] 1 tab PO DAILY 05/25/15 Potassium Chloride Tab [K-Dur] 20 meq PO DAILYBK #30 tab 06/23/16 Tyeaygwgwizqj-Rzhf-Hmhxzfptol [Fioricet] 1 ea PO Q8H PRN #21 tab 09/30/17 Colchicine 0.6 mg PO Q2H PRN #10 tab 09/30/17 Ondansetron [Zofran Odt] 4 mg PO Q4H PRN #10 tab 08/08/18 Promethazine Tab [Phenergan Tablet] 25 mg PO .Q4H PRN #5 tab 08/09/18 Review of Systems - Review of Systems Constitutional: States: diaphoresis, malaise, weakness EENTM: States: no symptoms reported Respiratory: States: cough, short of breath, wheezing Cardiology: States: edema Gastrointestinal/Abdominal: States: no symptoms reported Genitourinary: States: no symptoms reported Musculoskeletal: States: no symptoms reported Skin: States: no symptoms reported Neurological: States: no symptoms reported Endocrine: States: no symptoms reported, unexplained weight gain All other Systems: No Change from Baseline Past Medical History (General) - Patient Medical History Hx Seizures: No Hx Stroke: No Hx Dementia: No Hx Asthma: No Hx of COPD: Yes Hx Cardiac Disorders: No Hx Congestive Heart Failure: No Hx Pacemaker: No Hx Hypertension: No Hx Thyroid Disease: No Hx Diabetes: Yes Hx Gastroesophageal Reflux: Yes Hx Renal Disease: No Hx Cancer: No Hx of HIV: No Hx Hepatitis C: No Hx MRSA: Yes MRSA Source:: Wound - Vaccination History Hx Tetanus, Diphtheria Vaccination: - allergic to tetnus Hx Influenza Vaccination: No Hx Pneumococcal Vaccination: No - Social History Hx Tobacco Use: Yes Hx Chewing Tobacco Use: No Hx Alcohol Use: No Hx Substance Use: No Hx Substance Use Treatment: No Hx Depression: No Hx Physical Abuse: No Hx Emotional Abuse: No Hx Suspected Abuse: No - Female History Patient : No Family Medical History - Family History Father Family History: Unknown Living Status: Age at (years of age): 62 Cause of : "blood poisoning" Hx Family Diabetes: Yes - mom Physical Exam - Physical Exam General Appearance: Alert, Obvious distress, Ill Appearing Eye Exam: bilateral normal Ears, Nose, Throat: hearing grossly normal, normal pharynx, other - nasal flaring Neck: non-tender, full range of motion, supple Respiratory: respiratory distress, decreased breath sounds, accessory muscle use , rales, rhonchi, wheezing Cardiovascular/Chest: normal peripheral pulses, other - mildsinus tachycardia. Peripheral Pulses: radial,right: 2+, radial,left: 2+, dorsalis pedis,right: 1+, dorsalis pedis,left: 1+, posterior tibialis,right: 1+, posterior tibialis,left: 1+ Gastrointestinal/Abdominal: non tender, soft Rectal Exam: deferred Back Exam: no CVA tenderness, no vertebral tenderness Extremity: non-tender, no calf tenderness, normal capillary refill, pedal edema - 2+ bilaterally which appears to be chronic Neurologic: trust manager II-XII nml as tested, alert, oriented x 3 Skin Exam: diaphoresis Comments: Vital Signs - 8 hr 08/22/18 08/22/18 20:26 20:38 Temperature 97.2 F L Pulse Rate [ 67 left] Respiratory 26 H Rate Blood Pressure 199/92 [left] O2 Sat by Pulse 98 96 Oximetry repeat systolic blood pressures have ranged from 150-170. Progress - Progress Progress: 08/23/18 02:16 the patient is a 73-year-old male presenting to the emergency room in marked respiratory distress. He appears to be in a mixed COPD CHF exacerbation. Laboratory work additionally shows an elevation of his troponin which along with a new right bundle branch block is consistent with a non-ST elevation myocardial infarction. Exactly when this occurred is uncertain as he has not really had any chest pain. It is possible this may be stress-induced ischemia. The patient has received nitroglycerin, with a moderate reduction in his blood pressure along with a dose of heparin and aspirin. He is receiving oxygen as well. For the COPD component he actually received 5 nebulizer treatments and he is breathing significantly better, though far from normal. Additionally he did receive a blood culture along with a dose of Rocephin and azithromycin. He also received a dose of IV Solu-Medrol. CHF appears to be improving with improvement in his pulmonary status. He is going to receive 1 dose of IV Lasix. He is apparently 11 pounds up from his baseline weight over the last 2 weeks. I'm somewhat reluctant to give this diuretic in light of slightly worsening renal function. He does need to be followed back up with nephrology. Additionally he does have markedly low magnesium levels. This may be altering the appearance of the EKG somewhat as well. He is receiving 4 g of magnesium sulfate here. Source of the hypomagnesemia and mild hypocalcemia are uncertain. Magnesium is more dramatic and may certainly be due to the Prevacid or insulin that he takes. Additionally the combination of low calcium and low magnesium on multiple occasions in the past could also be contributed to by parathyroid difficulties or hyperaldosteronism. Hypertensive urgency appears to be improving with the nitroglycerin. Source of the patient's severe reactive airway is not entirely certain. He does smoke. It is possible that the beta rosario may be contributing to his symptoms. He does have a moderately elevated ESR so an inflammatory process may also be present. The patient will be transferred for higher level of care for cardiac evaluation as well as pulmonology evaluation. It would not be surprising if the patient has significant pulmonary hypertension and/or interstitial lung disease. An inflammatory or autoimmune process may also be in the background. Transferring for higher level of care. 08/23/18 02:26 - Results/Orders Results/Orders: Laboratory Tests 08/22/18 08/22/18 08/22/18 20:26 20:26 21:39 WBC 15.2 H RBC 3.70 L Hgb 11.2 L Hct 34.4 L MCV 93.0 MCH 30.2 MCHC 32.4 L RDW 15.3 H Plt Count 238 MPV 10.4 Absolute Neuts (auto) 12.30 H Absolute Lymphs (auto) 2.00 Absolute Monos (auto) 0.80 Absolute Eos (auto) 0.00 Absolute Basos (auto) 0.20 H Neutrophils % 80.6 H Lymphocytes % 13.3 L Monocytes % 4.9 Eosinophils % 0.2 L Basophils % 1.0 ESR 58 H D-Dimer, Quantitative Sodium 141 Potassium 4.4 Chloride 110 Carbon Dioxide 22 Anion Gap 13.4 BUN 55 H Creatinine 3.41 H BUN/Creatinine Ratio 16.1 Random Glucose 260 H Serum Osmolality 305.3 H Calcium 7.8 L Magnesium Total Bilirubin 0.7 AST 23 ALT 21 Alkaline Phosphatase 74 Creatine Kinase 243 H* CK-MB (CK-2) 8.5 H* CK-MB (CK-2) % 3.50 Troponin I 0.34 H* B-Natriuretic Peptide 2150.0 H* Serum Total Protein 6.7 Albumin 3.0 L Globulin 3.7 H Albumin/Globulin Ratio 0.8 L 08/22/18 08/22/18 21:39 21:39 WBC RBC Hgb Hct MCV MCH MCHC RDW Plt Count MPV Absolute Neuts (auto) Absolute Lymphs (auto) Absolute Monos (auto) Absolute Eos (auto) Absolute Basos (auto) Neutrophils % Lymphocytes % Monocytes % Eosinophils % Basophils % ESR D-Dimer, Quantitative 2.09 H* Sodium Potassium Chloride Carbon Dioxide Anion Gap BUN Creatinine BUN/Creatinine Ratio Random Glucose Serum Osmolality Calcium Magnesium 1.3 L Total Bilirubin AST ALT Alkaline Phosphatase Creatine Kinase CK-MB (CK-2) CK-MB (CK-2) % Troponin I B-Natriuretic Peptide Serum Total Protein Albumin Globulin Albumin/Globulin Ratio chest x-ray shows small effusions bilaterally. Increased pulmonary vascular congestion and cardiomegaly consistent with CHF. Chronic changes of COPD. EKG shows normal sinus rhythm at 64 bpm. There is first-degree AV block. He does have a new were significantly progressed right bundle branch block. There is mild widening of the QRS complex compared to previous. There is poor R-wave progression in anterior leads and there is left axis deviation possibly consistent with a left anterior fascicular block. He has an inverted T-wave in aVL and V1 and V2. Departure - Departure Clinical Impression: COPD exacerbation, Respiratory distress, NSTEMI (non-ST elevated myocardial infarction), Hypomagnesemia CHF exacerbation Qualifiers: Heart failure type: unspecified Qualified Code(s): I50.9 - Heart failure, unspecified Disposition: Transfer to Hospital Condition: Poor Referrals: PANFILO RIBERA MD [Primary Care Provider] - 1-2 Weeks Home Medications: Ambulatory Orders Amlodipine Besylate 10 mg PO DAILY 07/13/13 Clonidine HCl 0.1 mg PO BID 07/13/13 Enalapril Maleate 20 mg PO BID 07/13/13 Metoprolol Tartrate 100 mg PO BID 07/13/13 Lansoprazole [Prevacid] 30 mg PO DAILY 08/09/14 Insulin Aspart Protamine & Asp [Novolog Mix 70/30 (70-30) 100 Unit/ml] 22 unit SC BID 05/25/15 Magnesium Chloride-Calcium Car [Slow-Mag 71.5-119 mg] 1 tab PO DAILY 05/25/15 Potassium Chloride Tab [K-Dur] 20 meq PO DAILYBK #30 tab 06/23/16 Olnxdljjvqlhg-Lduk-Rufdgvjano [Fioricet] 1 ea PO Q8H PRN #21 tab 09/30/17 Colchicine 0.6 mg PO Q2H PRN #10 tab 09/30/17 Ondansetron [Zofran Odt] 4 mg PO Q4H PRN #10 tab 08/08/18 Promethazine Tab [Phenergan Tablet] 25 mg PO .Q4H PRN #5 tab 08/09/18 Transfer to Outside Facility - Transfer Information Accepting Provider:: dr garcia Accepting Facility: [facility] Reason for Transfer: required specialist not available
[2018-08-23 03:52] VITALS: BP 164/80; TEMP 97.8; O2SAT 98
[2018-08-23] MEDS ORDERED: MONTELUKAST 10 MG TAB PO ONE (23:15)
== END 2018-08-23 03:53 | disposition short-term general hospital (02) ==
LOC: ER 20:23
DX: I21.4 Non-ST elevation (NSTEMI) myocardial infarction (principal); R06.03 Acute respiratory distress; J44.1 Chronic obstructive pulmonary disease with (acute) exacerbation; I50.9 Heart failure, unspecified; I10 Essential (primary) hypertension; E11.9 Type 2 diabetes mellitus without complications; K21.9 Gastro-esophageal reflux disease without esophagitis; Z79.899 Other long term (current) drug therapy; Z87.891 Personal history of nicotine dependence; Z88.7 Allergy status to serum and vaccine
CPT/HCPCS: 36415; 71045; 80053; 82550; 82553; 83735; 83880; 84484; 85025; 85379; 85651; 87040; 87804; 93005; 94644; J0456; J1644; J2930; J3475; J7050; J7611; J7620

== ENCOUNTER → 2018-09-01 | Outpatient (CLI) | payer MEDICARE | LOC: GMAE 11:37 | PROVIDERS: ATTEND Family Medicine | DX: R06.02 Shortness of breath (principal); R09.02 Hypoxemia ==

== ENCOUNTER → 2018-09-14 | Outpatient (CLI) | payer MEDICARE | LOC: GMAE 17:50 | PROVIDERS: ATTEND Family Medicine | DX: E83.42 Hypomagnesemia (principal); K50.90 Crohn's disease, unspecified, without complications ==

== ENCOUNTER 2018-11-08 15:47 | Emergency (ER) | payer MEDICARE ==
[2018-11-08] MEDS ORDERED: cloNIDine HCL 0.1 MG TAB PO ONE (16:26)
--- NOTE | 2018-11-08 16:26 | ED.PDOC ---
History of Present Illness - General Chief Complaint: GI Problem Stated Complaint: Unable to swallow anything Time Seen by Provider: 11/08/18 16:23 Source: patient Exam Limitations: no limitations - History of Present Illness Initial Comments: Tae Carreon 73 y/o male stated that he ate ham for lunch this afternoon and felt got stuck in his throat,had been drooling,no N/V,no difficulty breathing.On arrival at ER he was given a can of soda and felt the food went down to his stomach,felt much better.Mentioned about his elevated blood pressure on the monitor stated forgot to take his medication this am. Timing/Duration: 4-6 hours Severity: moderate Improving Factors: nothing Worsening Factors: eating Associated Symptoms: denies symptoms Allergies/Adverse Reactions: Allergies Tetanus Toxoid Allergy (Verified 05/09/18 14:08) Swelling of extremities Home Medications: Ambulatory Orders Amlodipine Besylate 10 mg PO DAILY 07/13/13 Clonidine HCl 0.1 mg PO DAILY 07/13/13 Enalapril Maleate 20 mg PO DAILY 07/13/13 Metoprolol Tartrate 100 mg PO DAILY 07/13/13 Insulin Aspart Protamine & Asp [Novolog Mix 70/30 (70-30) 100 Unit/ml] 20 unit SC DAILY 05/25/15 Magnesium Chloride-Calcium Car [Slow-Mag 71.5-119 mg] 1 tab PO DAILY 05/25/15 Potassium Chloride Tab [K-Dur] 20 meq PO DAILYBK #30 tab 06/23/16 Review of Systems - Review of Systems Gastrointestinal/Abdominal: States: see HPI, other - dysphagia All other Systems: Reviewed and Negative, No Change from Baseline Past Medical History (General) - Patient Medical History Hx Seizures: No Hx Stroke: No Hx Dementia: No Hx Asthma: No Hx of COPD: Yes Hx Cardiac Disorders: No Hx Congestive Heart Failure: No Hx Pacemaker: No Hx Hypertension: No Hx Thyroid Disease: No Hx Diabetes: Yes Hx Gastroesophageal Reflux: Yes Hx Renal Disease: No Hx Cancer: No Hx of HIV: No Hx Hepatitis C: No Hx MRSA: Yes MRSA Source:: Wound Surgical History: other - explore lap bowel blockage - Vaccination History Hx Tetanus, Diphtheria Vaccination: - allergic to tetnus Hx Influenza Vaccination: No Hx Pneumococcal Vaccination: No - Social History Hx Tobacco Use: Yes - Quit 2018 Hx Chewing Tobacco Use: No Hx Alcohol Use: No Hx Substance Use: No Hx Substance Use Treatment: No Hx Depression: No Hx Physical Abuse: No Hx Emotional Abuse: No Hx Suspected Abuse: No - Activities of Daily Living Patient Lives Alone: No - Female History Patient : No Family Medical History - Family History Father Family History: Unknown Living Status: Age at (years of age): 62 Cause of : "blood poisoning" Hx Family Diabetes: Yes - mom Physical Exam - Physical Exam General Appearance: Alert, Comfortable, No apparent distress Eye Exam: bilateral normal Ears, Nose, Throat: hearing grossly normal, normal ENT inspection, normal pharynx Neck: supple, normal inspection Respiratory: chest non-tender, lungs clear, normal breath sounds Cardiovascular/Chest: normal peripheral pulses, regular rate, rhythm, no murmur Peripheral Pulses: radial,right: 2+, radial,left: 2+ Gastrointestinal/Abdominal: non tender, soft Back Exam: no CVA tenderness, no vertebral tenderness Extremity: no pedal edema, no calf tenderness Neurologic: alert, oriented x 3 Skin Exam: normal color, warm/dry Progress - Progress Progress: 11/08/18 17:24 Vital Signs - 8 hr 11/08/18 11/08/18 15:56 17:00 Temperature 98.3 F 98.2 F Pulse Rate [ 81 77 Right Radial] Respiratory 20 16 Rate Blood Pressure 195/104 160/81 [Right Arm] O2 Sat by Pulse 99 97 Oximetry Departure - Departure Clinical Impression: Mechanical dysphagia Impacted foreign body in esophagus Qualifiers: Encounter type: initial encounter Qualified Code(s): T18.108A - Unspecified foreign body in esophagus causing other injury, initial encounter Hypertension Qualifiers: Hypertension type: unspecified Qualified Code(s): I10 - Essential (primary) hypertension Time of Disposition: 17:26 Disposition: Discharge to Home or Self Care Condition: Fair Departure Forms: ED Discharge - Pt. Copy, Patient Portal Self Enrollment Referrals: PANFILO RIBERA MD [Primary Care Provider] - 1-2 Weeks Home Medications: Ambulatory Orders Amlodipine Besylate 10 mg PO DAILY 07/13/13 Clonidine HCl 0.1 mg PO DAILY 07/13/13 Enalapril Maleate 20 mg PO DAILY 07/13/13 Metoprolol Tartrate 100 mg PO DAILY 07/13/13 Insulin Aspart Protamine & Asp [Novolog Mix 70/30 (70-30) 100 Unit/ml] 20 unit SC DAILY 05/25/15 Magnesium Chloride-Calcium Car [Slow-Mag 71.5-119 mg] 1 tab PO DAILY 05/25/15 Potassium Chloride Tab [K-Dur] 20 meq PO DAILYBK #30 tab 06/23/16 Additional Instructions: Need to chew food properly;follow up with your Manager Clinical Applications Dr. Lyons 11 Nov 2018;continue with all home medications
[2018-11-08 17:49] VITALS: BP 142/73; TEMP 98; O2SAT 96
== END 2018-11-08 17:37 | disposition home or self-care (01) ==
LOC: ER 15:47
DX: T18.108A Unspecified foreign body in esophagus causing other injury, initial encounter (principal); I10 Essential (primary) hypertension; K21.9 Gastro-esophageal reflux disease without esophagitis; J44.9 Chronic obstructive pulmonary disease, unspecified; E11.9 Type 2 diabetes mellitus without complications; Z87.891 Personal history of nicotine dependence; Z79.4 Long term (current) use of insulin; Z79.899 Other long term (current) drug therapy; Z88.7 Allergy status to serum and vaccine

== ENCOUNTER 2018-11-18 08:06 | Inpatient (IN) | payer MEDICARE ==
[2018-11-18] MEDS ORDERED: ONDANSETRON INJ 4 MG/2 ML VIAL IV ONE (08:29)
[2018-11-18] MEDS ORDERED: SODIUM CHLORIDE 0.9% 1000ML 1,000 ML IVS ONE (08:29)
--- NOTE | 2018-11-18 08:34 | ED.PDOC ---
History of Present Illness - General Chief Complaint: GI Problem Stated Complaint: N/V Time Seen by Provider: 11/18/18 08:26 Information Source: patient - History of Present Illness Initial Comments: VOMITING FOR THE PAST 24 HRS. 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 HE ALSO STATES THAT WHEN HIS MAGNESIUM LEVEL FALLS HE THEN DEVELOPS VOMITING. Abdominal Pain Onset Location: epigastric Pain Radiation: no radiation Quality: mild Timing/Duration: 24 hours Improving Factors: nothing Worsening Factors: nothing Associated Symptoms: denies symptoms Review of Systems - Review of Systems Constitutional: States: malaise, weakness EENTM: States: no symptoms reported Respiratory: States: no symptoms reported Cardiology: States: no symptoms reported Gastrointestinal/Abdominal: States: diarrhea, nausea, vomiting Musculoskeletal: States: no symptoms reported Skin: States: no symptoms reported Neurological: States: no symptoms reported Endocrine: States: no symptoms reported Hematologic/Lymphatic: States: no symptoms reported Past Medical History (General) - Patient Medical History Hx Seizures: No Hx Stroke: No Hx Dementia: No Hx Asthma: No Hx of COPD: Yes Hx Cardiac Disorders: No Hx Congestive Heart Failure: No Hx Pacemaker: No Hx Hypertension: No Hx Thyroid Disease: No Hx Diabetes: No Hx Gastroesophageal Reflux: Yes Hx Renal Disease: No Hx Cancer: No Hx of HIV: No Hx Hepatitis C: No Hx MRSA: Yes MRSA Source:: Wound Surgical History: appendectomy - Vaccination History Hx Tetanus, Diphtheria Vaccination: - allergic to tetnus Hx Influenza Vaccination: Yes Hx Pneumococcal Vaccination: Yes - Social History Hx Tobacco Use: Yes Hx Chewing Tobacco Use: No Hx Alcohol Use: No Hx Substance Use: No Hx Substance Use Treatment: No Hx Depression: No Hx Physical Abuse: No Hx Emotional Abuse: No Hx Suspected Abuse: No - Female History Patient : No Family Medical History - Family History Father Family History: Unknown Living Status: Age at (years of age): 64 Cause of : "blood poisoning" Hx Family Diabetes: Yes - mom Physical Exam - Physical Exam General Appearance: Alert, No apparent distress, Well Developed, Well Groomed, Well Hydrated, Well Nourished Eyes, Ears, Nose, Throat Exam: PERRL/EOMI, pharynx normal, other - ORAL MUCOSA SEEMS DRY Neck: non-tender, full range of motion, supple Respiratory: chest non-tender, lungs clear, normal breath sounds, no respiratory distress, no accessory muscle use Cardiovascular/Chest: normal peripheral pulses, regular rate, rhythm, no edema, no gallop, no JVD Gastrointestinal/Abdominal: normal bowel sounds, non tender, soft, no organomegaly, no pulsatile mass Back Exam: normal inspection, no CVA tenderness Extremity: normal range of motion Neurologic: no motor/sensory deficits, oriented x 3 Skin Exam: normal color Progress - Progress Progress: 11/18/18 09:56 ATTEMPTED TO CONTACT BALDEV BANG TWICE-UNSUCCESFUL. I DID CALL DR. BECK WHO IMMEDIATELEY ANSWERED HIS PHONE BUT HE IS NOT TAKING CALL FOR DR. BANG. DISCUSSED CASE WITH MOY MIRANDA, WILL ADMIT PATIENT HERE FOR REHYDRATION. - Results/Orders Results/Orders: Laboratory Results - last 24 hr 11/18/18 11/18/18 11/18/18 08:30 08:30 08:45 WBC 9.8 RBC 3.94 L Hgb 11.7 L Hct 34.9 L MCV 88.5 MCH 29.6 MCHC 33.5 RDW 15.2 H Plt Count 194 MPV 8.2 Absolute Neuts (auto) 7.50 H Absolute Lymphs (auto) 1.50 Absolute Monos (auto) 0.50 Absolute Eos (auto) 0.20 Absolute Basos (auto) 0.10 Neutrophils % 76.8 Lymphocytes % 14.8 L Monocytes % 5.5 Eosinophils % 2.1 Basophils % 0.8 Sodium 145 Potassium 3.4 L Chloride 116 H* Carbon Dioxide 18 L Anion Gap 14.4 BUN 34 H Creatinine 5.43 H BUN/Creatinine Ratio 6.3 L Random Glucose 181 H Serum Osmolality 300.9 H Calcium 7.6 L Magnesium 1.3 L Total Bilirubin 0.5 AST 19 ALT 16 Alkaline Phosphatase 80 Serum Total Protein 6.5 Albumin 2.4 L Globulin 4.1 H Albumin/Globulin Ratio 0.6 L Urine Color Yellow Urine Appearance Clear Urine pH 7.0 Ur Specific [place] 1.025 Urine Protein >=300 H Urine Glucose (UA) 100 H Urine Ketones Negative Urine Blood Small H Urine Nitrite Negative Urine Bilirubin Negative Urine Urobilinogen 0.2 Ur Leukocyte Esterase Negative Urine RBC 0 Urine WBC 0-1 Ur Epithelial Cells 0 Urine Bacteria 0 Departure - Departure Clinical Impression: Acute kidney injury superimposed on chronic kidney disease, Hypomagnesemia Time of Disposition: 09:59 Disposition: Admit Patient Condition: Fair Referrals: PANFILO RIBERA MD [Primary Care Provider] - 1-2 Weeks Home Medications: Ambulatory Orders Amlodipine Besylate 10 mg PO DAILY 07/13/13 Clonidine HCl 0.1 mg PO DAILY 07/13/13 Enalapril Maleate 20 mg PO DAILY 07/13/13 Metoprolol Tartrate 100 mg PO DAILY 07/13/13 Insulin Aspart Protamine & Asp [Novolog Mix 70/30 (70-30) 100 Unit/ml] 20 unit SC DAILY 05/25/15 Potassium Chloride Tab [K-Dur] 20 meq PO DAILYBK #30 tab 06/23/16 Magnesium [Magnesium 400 mg] 4 tab PO DAILY 11/18/18 Decision To Admit - Decistion To Admit Decision to Admit Date: 11/18/18 Decision to Admit Time: 09:58
[2018-11-18] MEDS ORDERED: MAGNESIUM SULFATE PREMIX 4GM 4 GM in PREMIX BAG 1 BAG IVPB ONE (09:42)
[2018-11-18] MEDS ORDERED: MAGNESIUM SULFATE PREMIX 4GM 50 ML IVPB ONE (10:08)
--- NOTE | 2018-11-18 10:24 | HP ---
SUPERVISING PHYSICIAN: Susanne York MD CHIEF COMPLAINT: Nausea and vomiting. HISTORY OF PRESENT ILLNESS: This is a 73-year-old male patient with a 24 hour history of nausea and vomiting. He has had chronic diarrhea for many years and has a partial colectomy. He also has chronic renal failure with a baseline creatinine of about 3. He typically gets nauseated when his magnesium gets low. In the Emergency Room, he was given some fluids and his lab was drawn. His WBCs were 9.8 with hemoglobin 11.7, hematocrit 34.9. Sodium 145, potassium 3.4, chloride 116, carbon dioxide 18, BUN 34, creatinine 5.43. His baseline creatinine is usually about 3. Glucose 168, serum osmolality 30.9, magnesium 1.3, calcium 7.6. Liver enzymes were within normal limits. Urinalysis showed greater than 300 urine protein, 100 urine glucose and a small amount of urine blood. Dr. Joel Peguero, the patient's u.s. representative, was contacted by the Emergency Room physician. He has an appointment with Dr. Peguero on Friday and Dr. Peguero recommended the patient be admitted and I was called for hospital admission. PAST MEDICAL HISTORY: 1. Coronary artery disease. 2. Hypertension. 3. Gastroesophageal reflux disease. 4. Type 2 diabetes. 5. Chronic obstructive pulmonary disease. PAST SURGICAL HISTORY: 1. Appendectomy. 2. Colon resection. 3. Stomach surgery. 4. Hemorrhoidectomy. CURRENT OUTPATIENT MEDICATIONS: 1. Magnesium oxide. 2. Metoprolol. 3. Amlodipine. 4. Clonidine. 5. Enalapril. 6. Insulin 70/30. 7. Potassium chloride. ALLERGIES: TETANUS. SOCIAL HISTORY: He is retired. He is . He has two children. He quit smoking in August of 2018. He smoked about one pack of cigarettes daily for 50 years. He denies any ETOH or illicit drug use. REVIEW OF SYSTEMS: GENERAL: Positive for fatigue. Negative for fever or weight changes. HEENT: Negative for sinus symptoms, ear pain, vision changes or sore throat. RESPIRATORY: Negative for wheezing, coughing or shortness of breath. CARDIAC: Negative for chest pain, palpitations or tachycardia. GASTROINTESTINAL: As per history of present illness. SKIN: Negative for lesions or rashes. NEUROLOGIC: Negative for headache, dizziness or seizures. EXTREMITIES: Negative for swelling. PHYSICAL EXAMINATION: VITAL SIGNS: Temperature 98.1. Blood pressure 209/85. Followup blood pressure was 197/73. Respiratory rate 20. O2 saturation 99% on room air. GENERAL: This is a 73-year-old male patient who is lying in his hospital bed. He is in no acute distress. HEENT: Normocephalic, atraumatic. Pupils are equal and reactive. Oropharynx is clear. NECK: Supple without mass. RESPIRATORY: Essentially clear to auscultation bilaterally. CARDIOVASCULAR: Regular rate and rhythm. GASTROINTESTINAL: Abdomen is soft. It is mildly, but diffusely tender. There is no rebound tenderness or guarding. Bowel sounds are slightly hyperactive. SKIN: No lesions or rashes. NEUROLOGIC: Awake, alert and oriented times three. Cranial nerves II-XII are grossly intact. EXTREMITIES: No cyanosis, clubbing or edema. LABORATORY: Labs and films are as per history of present illness. IMPRESSION: 1. Acute on chronic renal failure. His baseline creatinine is approximately 3. Today, it is 5.43. 2. Nausea, vomiting and dehydration most likely secondary to viral gastritis. 3. Electrolyte imbalance, specifically hypokalemia, hypomagnesemia and hyperchloremia, mostly due to his gastritis, but may be secondary to his chronic diarrhea. 4. Diabetes mellitus, type 2, on insulin therapy. PLAN: We will admit the patient to the hospital. I have spoken with his renal doctor, Dr. Joel Peguero, and he agrees with the plan of care. I will call him tomorrow with his lab results. His IV will be D5W with bicarb. I will repeat his electrolytes this afternoon. He had magnesium in the ER and we may need to replace that further. I have also started him on blood sugars a.c. and h.s. with sliding scale coverage. His home medications have been restarted. He has a proton pump inhibitor for ulcer prophylaxis as well as Lovenox for DVT prophylaxis. Encourage good pulmonary hygiene. We will continue to monitor the patient closely and follow as needed. #[id number] [facility]
[2018-11-18] MEDS ORDERED: GLUCAGON INJ 1 MG VIAL SUBCU PRN (11:24)
[2018-11-18] MEDS ORDERED: DEXTROSE 50% 25 GM/50 ML SYG IV PRN (11:24)
[2018-11-18] MEDS ORDERED: SODIUM BICARBONATE SYRINGE 75 MEQ in DEXTROSE 5% 1000ML 1,000 ML IV PRN (11:24)
[2018-11-18] MEDS ORDERED: ENALAPRIL MALEATE 5 MG TAB ONE (11:36)
[2018-11-18] MEDS ORDERED: amLODIPine BESYLATE 5 MG TAB ONE (11:37)
[2018-11-18] MEDS: ENALAPRIL MALEATE 5 MG TAB PO SCH (11:43)
[2018-11-18] MEDS: amLODIPine BESYLATE 5 MG TAB PO SCH (11:43)
[2018-11-18] MEDS: cloNIDine HCL 0.1 MG TAB PO SCH (11:44)
[2018-11-18] MEDS: INSULIN LISPRO 100 UNITS/ML PEN SUBCU SCH ×3 (12:51→21:12)
[2018-11-18] MEDS ORDERED: SODIUM CHLORIDE 0.9% (FLUSH) 10 ML SYG IV PRN (13:07)
[2018-11-18] MEDS ORDERED: DEXTROSE 5% 1000ML 1,000 ML IVS ONE (13:41)
[2018-11-18] MEDS ORDERED: SODIUM BICARBONATE VIAL 50 MEQ/50 ML VIAL ONE (13:41)
[2018-11-18] MEDS: SODIUM BICARBONATE VIAL 75 MEQ in DEXTROSE 5% 1000ML 1,000 ML IV PRN (13:55)
[2018-11-18] MEDS: IV SET AND CAP CHANGE INJ INJ SCH (13:55)
[2018-11-18] MEDS: PANTOPRAZOLE SODIUM IV 40 MG VIAL IV SCH (13:55)
[2018-11-18] MEDS ORDERED: ALBUTEROL SULFATE 2.5 MG/3 ML VIAL NEB PRN (16:59)
[2018-11-18] MEDS: ALBUTEROL SULFATE 2.5 MG/3 ML VIAL NEB PRN (17:05)
[2018-11-18] MEDS ORDERED: METOPROLOL TARTRATE 50 MG TAB ONE (18:41)
[2018-11-18] MEDS ORDERED: METOPROLOL SUCCINATE XL 50 MG TAB ONE (18:43)
[2018-11-18] MEDS ORDERED: METOPROLOL SUCCINATE XL 25 MG TAB PO ONE ×2 (18:45→18:46)
[2018-11-18] MEDS: METOPROLOL SUCCINATE XL 100 MG TAB PO SCH (18:59)
[2018-11-18] MEDS: ACETAMINOPHEN 325 MG TAB PO PRN (19:50)
[2018-11-18] MEDS: ALBUTEROL SULFATE 2.5 MG/3 ML VIAL NEB SCH (20:18)
[2018-11-18] MEDS ORDERED: ALBUTEROL SULFATE 2.5 MG/3 ML VIAL NEB SCH (21:00)
[2018-11-18] MEDS: MAGNESIUM OXIDE 400 MG TAB PO SCH (21:12)
[2018-11-18] MEDS: ENOXAPARIN SODIUM 30 MG/0.3 ML SYG SUBCU SCH (21:12)
[2018-11-18] MEDS ORDERED: POTASSIUM CHLORIDE 20 MEQ TAB ONE (22:30)
[2018-11-18] MEDS: POTASSIUM CHLORIDE 20 MEQ TAB PO SCH (22:32)
[2018-11-19] MEDS ORDERED: DEXTROSE 5% 1000ML 1,000 ML IVS ONE ×2 (00:08→14:24)
[2018-11-19] MEDS ORDERED: SODIUM BICARBONATE VIAL 50 MEQ/50 ML VIAL ONE ×2 (00:09→14:24)
[2018-11-19] MEDS: SODIUM BICARBONATE VIAL 75 MEQ in DEXTROSE 5% 1000ML 1,000 ML IV PRN ×2 (00:10→14:26)
[2018-11-19] MEDS: ALBUTEROL SULFATE 2.5 MG/3 ML VIAL NEB PRN ×4 (00:30→11:40)
[2018-11-19] MEDS ORDERED: POTASSIUM CHLORIDE 20 MEQ TAB PO ONE (06:51)
--- NOTE | 2018-11-19 07:14 | RAD ---
EXAM DESCRIPTION: Chest,2 Views CLINICAL HISTORY: 73 years Male, SOB COMPARISON: 08/22/2018 IMPRESSION: The heart is enlarged, with central pulmonary vascular congestion. Calcific plaque in the thoracic aorta. The lungs are hyperexpanded. Perihilar and bibasilar interstitial opacities with patchy left greater than right airspace opacities. The findings are likely secondary to CHF with pulmonary edema. Multifocal pneumonia may have a similar appearance. Small left pleural effusion. No pneumothorax. No acute osseous abnormality. Electronically signed by: Gareth Gotti MD 11/19/2018 7:13 AM [employer]
[2018-11-19] MEDS ORDERED: MAGNESIUM SULFATE PREMIX 2GM 50 ML IVPB ONE (07:26)
[2018-11-19] MEDS ORDERED: MAGNESIUM SULFATE PREMIX 2GM 2 GM in PREMIX BAG 1 BAG IVPB ONE (07:30)
[2018-11-19] MEDS: INSULIN LISPRO 100 UNITS/ML PEN SUBCU SCH ×4 (07:33→20:58)
[2018-11-19] MEDS: POTASSIUM CHLORIDE 20 MEQ TAB PO SCH (07:35)
[2018-11-19] MEDS: METOPROLOL SUCCINATE XL 100 MG TAB PO SCH (07:35)
[2018-11-19] MEDS: ENALAPRIL MALEATE 5 MG TAB PO SCH (07:35)
[2018-11-19] MEDS: cloNIDine HCL 0.1 MG TAB PO SCH ×2 (07:35→21:46)
[2018-11-19] MEDS: amLODIPine BESYLATE 5 MG TAB PO SCH (07:35)
[2018-11-19] MEDS: MAGNESIUM OXIDE 400 MG TAB PO SCH ×2 (07:36→20:35)
[2018-11-19] MEDS: ALBUTEROL SULFATE 2.5 MG/3 ML VIAL NEB SCH ×2 (07:51→20:04)
[2018-11-19] MEDS ORDERED: FUROSEMIDE INJ 40 MG/4 ML VIAL IV ONE (08:46)
[2018-11-19] MEDS: INSULIN PROTAMINE/LISPRO 75/25 100 UNITS/ML PEN SUBCU SCH (08:57)
[2018-11-19] MEDS ORDERED: methylPREDNISolone SODIUM SUC 125 MG/2 ML VIAL IV ONE (10:54)
[2018-11-19] MEDS ORDERED: SODIUM CHLORIDE 0.9% 250ML 250 ML ONE (10:57)
[2018-11-19] MEDS ORDERED: SODIUM CHL 0.9% 50ML MIN-BAG+ 50 ML IVPB ONE (10:57)
[2018-11-19] MEDS ORDERED: cefTRIAXone SODIUM 1 GM VIAL ONE (10:58)
[2018-11-19] MEDS ORDERED: AZITHROMYCIN IV 500 MG VIAL IVPB ONE (10:58)
[2018-11-19] MEDS: cefTRIAXone SODIUM 1 GM in SODIUM CHL 0.9% 50ML MIN-BAG+ 50 ML IVPB SCH (11:05)
--- NOTE | 2018-11-19 11:30 | PN ---
SUPERVISING PHYSICIAN: Susanne York MD DATE: 11/19/18 SUBJECTIVE: Overnight, the patient complained of some shortness of breath and required multiple breathing treatments. He also had a productive cough as well as a little bit of shortness of breath. He was given some Lasix as well as a chest x-ray was done. His breathing treatments were increased and he is feeling somewhat better, especially after the administration of the Lasix. He continues complaints of some mild shortness of breath and coughing, but does feel better and less short of breath than he did overnight. He did say he had an echocardiogram done at [facility] in August of 2018, but was not told if he had any congestive heart failure. OBJECTIVE: VITAL SIGNS: Afebrile with temperature 98.1. Heart rate 63. Blood pressure 181/68. Respiratory rate 22. O2 saturation 95%. RESPIRATORY: Diminished at the bases with a few expiratory wheezes and a few mild crackles as well as scattered rhonchi. He is slightly tachypneic and slightly short of breath and has to speak in short phrases due to the dyspnea. CARDIAC: Regular rate and rhythm. GASTROINTESTINAL: Abdomen is soft, nondistended, nontender. Bowel sounds are positive. EXTREMITIES: He has +1 edema to his lower extremities. No cyanosis or clubbing. Bilateral pedal pulses are +2. NEUROLOGIC: Awake, alert and oriented times three. LABORATORY: WBCs 9.4 with hemoglobin 10.6, hematocrit 34.1. Blood gas shows a PCO2 of 30 with PO2 of 80, bicarb 17.4, pH 7.38, O2 sat 96.3%. Blood sugars have run between 144 and 288. Sodium 142, potassium 3.2, chloride 114, carbon dioxide 19, anion gap 12.2, BUN 31, creatinine 4.98. Serum osmolality 295.2, magnesium 1.7, BNP 2,510. Chest x-ray shows the heart enlarged with central pulmonary vascular congestion, calcific plaque in the thoracic artery. The lungs are hyperexpanded. Perihilar and bibasilar interstitial opacities with patchy left greater than right airspace opacities. The findings are likely secondary to congestive heart failure with pulmonary edema, but multifocal pneumonia may have a similar appearance. There is a small left pleural effusion, no pneumothorax. All other labs and films have been reviewed via the EMR. ASSESSMENT: 1. Acute on chronic renal failure. His baseline creatinine is approximately 3. Today, it is slightly improved from his admission of 5.43 to 4.98. 2. Exacerbation of chronic obstructive pulmonary disease that may be complicated by community acquired pneumonia. He did quit smoking in August of 2018. He has some shortness of breath with some tachypnea. 3. Congestive heart failure with an exacerbation. His BNP today is greater than 2,500. His echocardiogram from 08/2018 shows congestive heart failure with a grade 3/4 diastolic dysfunction and ejection fraction 65%. The patient is not on routine diuretics, but he is on routine beta rosario and also an PILO inhibitor. 4. Nausea, vomiting and dehydration, most likely secondary to viral gastritis, improved. 5. Electrolyte imbalance, specifically hypokalemia, hypomagnesemia and hyperchloremia, may be secondary to his gastritis as well as his chronic renal failure. 6. Diabetes mellitus, type 2, on insulin therapy. PLAN: We will continue present supportive care. I have initiated the pneumonia guidelines and we will do aggressive pulmonary hygiene. I have also added some Rocephin as well as some azithromycin. He has received a dosage of Solu-Medrol. He also received some Lasix this morning and I have given him some routine IV Lasix. Tomorrow or the next day, we may need to switch him to p.o. dosing. He does not take any on a routine basis, but may need to go home on at least a small amount. I spoke with Dr. Peguero, his environmental services project manager, this morning and gave him an update on the patient's condition. He agreed with the plan of care. He was somewhat concerned with the Lasix dosage making his creatinine worse, but we will monitor that closely. I have given him some magnesium this morning as well as some potassium replacement. We will need to monitor him closely and follow as needed. Dr. York is the collaborating physician and available for consultation. #[id number] [facility]
[2018-11-19] MEDS: AZITHROMYCIN IV 500 MG in SODIUM CHLORIDE 0.9% 250ML 250 ML IVPB SCH (12:08)
[2018-11-19] MEDS: IPRATROPIUM/ALBUTEROL 3 ML VIAL INH SCH ×3 (12:59→20:04)
[2018-11-19] MEDS: PANTOPRAZOLE SODIUM IV 40 MG VIAL IV SCH (13:24)
[2018-11-19] MEDS: FUROSEMIDE INJ 40 MG/4 ML VIAL IV SCH (16:55)
[2018-11-19] MEDS: methylPREDNISolone SODIUM SUC 40 MG/ML VIAL IV SCH ×2 (17:12→23:53)
[2018-11-19] MEDS ORDERED: cloNIDine HCL 0.1 MG TAB PO ONE (17:51)
[2018-11-19] MEDS ORDERED: PANTOPRAZOLE SODIUM TAB 40 MG PO ONE (19:13)
[2018-11-19] MEDS: ENOXAPARIN SODIUM 30 MG/0.3 ML SYG SUBCU SCH (20:35)
[2018-11-20] MEDS: cloNIDine HCL 0.1 MG TAB PO SCH ×3 (05:36→22:02)
[2018-11-20] MEDS: methylPREDNISolone SODIUM SUC 40 MG/ML VIAL IV SCH (05:36)
[2018-11-20] MEDS: PANTOPRAZOLE SODIUM TAB 40 MG PO SCH (06:00)
[2018-11-20] MEDS ORDERED: DEXTROSE 5% 1000ML 1,000 ML IVS ONE (06:40)
[2018-11-20] MEDS: ALBUTEROL SULFATE 2.5 MG/3 ML VIAL NEB PRN (06:45)
[2018-11-20] MEDS: SODIUM BICARBONATE VIAL 75 MEQ in DEXTROSE 5% 1000ML 1,000 ML IV PRN (06:49)
[2018-11-20] MEDS: INSULIN LISPRO 100 UNITS/ML PEN SUBCU SCH ×6 (07:21→20:54)
--- NOTE | 2018-11-20 07:27 | RAD ---
CLINICAL HISTORY: 73 years Male Pneumonia COMPARISON: Portable chest 11/19/2018 TECHNIQUE: A single frontal projection of the chest is obtained. FINDINGS: Heart: Allowing for magnification factors related to AP portable technique and large body habitus , the heart is mildly enlarged. Pulmonary vascular congestion persists although improved in the interim. . Vasculature: The aorta is unremarkable. The pulmonary vascularity is normal. Mediastinum: Unremarkable otherwise. No evidence of mass or adenopathy. Lungs: Diffuse interstitial prominence as well as some focal alveolar opacification in the right lower lung has improved slightly, probably improving pulmonary edema. Pleural spaces: There is slight blunting of the right costophrenic angle consistent with scarring or a trace right pleural effusion. There is no significant left pleural fluid or evidence of pneumothoraces Osseous structures: There is no evidence of acute fracture, osseous destruction or osteoblastic lesions. [] Tubes and catheters: None. Upper abdomen: No acute findings. [] IMPRESSION: Slight improvement in findings of fluid overload [] Remainder of findings as described above. Electronically signed by: Mulu Camara MD 11/20/2018 7:25 AM [facility]
[2018-11-20] MEDS: POTASSIUM CHLORIDE 20 MEQ TAB PO SCH (07:31)
[2018-11-20] MEDS: IPRATROPIUM/ALBUTEROL 3 ML VIAL INH SCH ×4 (08:31→20:37)
[2018-11-20] MEDS: INSULIN PROTAMINE/LISPRO 75/25 100 UNITS/ML PEN SUBCU SCH (08:36)
[2018-11-20] MEDS: ENALAPRIL MALEATE 5 MG TAB PO SCH (08:37)
[2018-11-20] MEDS: MAGNESIUM OXIDE 400 MG TAB PO SCH ×2 (08:37→20:54)
[2018-11-20] MEDS: METOPROLOL SUCCINATE XL 100 MG TAB PO SCH (08:37)
[2018-11-20] MEDS: FUROSEMIDE INJ 40 MG/4 ML VIAL IV SCH (08:37)
[2018-11-20] MEDS: amLODIPine BESYLATE 5 MG TAB PO SCH (08:37)
[2018-11-20] MEDS: ALBUTEROL SULFATE 2.5 MG/3 ML VIAL NEB SCH (10:26)
[2018-11-20] MEDS ORDERED: NITROGLYCERIN 0.4 MG/HR PATCH TOP SCH (11:00)
[2018-11-20] MEDS ORDERED: SODIUM CHL 0.9% 50ML MIN-BAG+ 50 ML IVPB ONE (11:01)
[2018-11-20] MEDS ORDERED: cefTRIAXone SODIUM 1 GM VIAL ONE (11:01)
[2018-11-20] MEDS: ACETAMINOPHEN 325 MG TAB PO PRN (11:04)
[2018-11-20] MEDS: cefTRIAXone SODIUM 1 GM in SODIUM CHL 0.9% 50ML MIN-BAG+ 50 ML IVPB SCH (11:07)
[2018-11-20] MEDS ORDERED: SODIUM CHLORIDE 0.9% 250ML 250 ML ONE (11:16)
[2018-11-20] MEDS ORDERED: AZITHROMYCIN IV 500 MG VIAL IVPB ONE (11:16)
[2018-11-20] MEDS: AZITHROMYCIN IV 500 MG in SODIUM CHLORIDE 0.9% 250ML 250 ML IVPB SCH (12:42)
[2018-11-20] MEDS: ENOXAPARIN SODIUM 30 MG/0.3 ML SYG SUBCU SCH (20:54)
[2018-11-20] MEDS: REMOVE OLD PATCH TOP SCH (20:55)
--- NOTE | 2018-11-20 21:28 | PN ---
DATE: 11/20/18 SUPERVISING PHYSICIAN: Carlos Alberto York M.D. SUBJECTIVE: The patient this morning noted he had some chest pains but he contributed most of it to acute anxiety attack. I went ahead and started him on a Nitro patch and will follow his cardiac enzymes and EKGs. His EKGs showed no acute changes compared to old reports available. His chest pain resolved without any other medical intervention. I did discuss with him that I tried to touch base with Dr. Peguero, his real estate broker, however several attempts throughout the day have been unsuccessful. OBJECTIVE: VITAL SIGNS: Temperature 97.2, pulse 62, reproduction 162/75, respirations 18, satting 96% on room air at rest. I's and O's show a negative balance of 595 with 1780 in, 2375 out. Weight is 87.9 kg. GENERAL: The patient is resting comfortably. He just finished a breathing treatment. He is alert. CHEST: Lung sounds are just slightly diminished towards the bases, but otherwise fairly clear bilaterally. HEART: Regular rate and rhythm. ABDOMEN: Soft, non- tender. Positive bowel sounds. EXTREMITIES: Without any clubbing, cyanosis or edema today. NEUROLOGIC: He is alert and oriented times three. LABORATORY: White count shows to be 9,400, hemoglobin is stable at 10.8, hematocrit 32.1 respectively with platelet count 151,000. Differential does show a left shift. Chemistries show an elevated BUN at 35, creatinine is up to 5.24. Blood sugars are showing fairly poor control between 132 and 395. Liver functions are showing to be within normal limits. Initial troponin was 0.05. MICROBIOLOGY: Sputum culture is pending. Blood cultures are pending. RADIOLOGY: Chest x-ray of single view chest this morning per radiology interpretation showed slight improvement in findings of fluid overload. Please see report for full details. ASSESSMENT: 1. Acute on chronic renal failure with a baseline creatinine of about 3. Continues to show slight worsening levels probably due to aggressive diuresis with Lasix. 2. Exacerbation of chronic obstructive pulmonary disease with probable community acquired pneumonia with a history of smoking, quitting in August of 2018. He continues to be encouraged to stop smoking. 3. Congestive heart failure with an exacerbation with elevated BNP greater than 2,500 with last echocardiogram noted to be in 08/2018 with grade 3/4 diastolic and ejection fraction of 65%. The patient showing some improvement with diuretics already having been on beta rosario and PILO inhibitor. 4. Nausea, vomiting and dehydration, likely due to viral gastritis, resolved. 5. Electrolyte imbalance, specifically hypokalemia and hypomagnesemia resolved with replacement. 6. Diabetes mellitus, type 2, on insulin therapy showing to be elevated, exacerbated by corticosteroids. PLAN: I will continue aggressive management with aggressive pulmonary hygiene and coverage with Rocephin and azithromycin. He is no longer on Solu-Medrol. I have stopped his IV Lasix and will start him back on p.o. tomorrow. He seems to be more euvolemic at this time but will continue with sodium bicarb infusion at 60 with an amp and a half. I did try to touch base again with Dr. Peguero, nephrology, but have not had any luck at this point. Will recheck labs in the morning and x-ray. Anticipate probable discharge tomorrow. Until then will continue to monitor and treat as needed. [facility][id number] [facility]
[2018-11-21] MEDS ORDERED: SODIUM BICARBONATE VIAL 50 MEQ/50 ML VIAL ONE (01:10)
[2018-11-21] MEDS ORDERED: DEXTROSE 5% 1000ML 1,000 ML IVS ONE (01:10)
[2018-11-21] MEDS: SODIUM BICARBONATE VIAL 75 MEQ in DEXTROSE 5% 1000ML 1,000 ML IV PRN (02:38)
[2018-11-21] MEDS: ALBUTEROL SULFATE 2.5 MG/3 ML VIAL NEB PRN ×3 (02:40→23:04)
[2018-11-21] MEDS: cloNIDine HCL 0.1 MG TAB PO SCH ×3 (05:42→21:51)
[2018-11-21] MEDS: PANTOPRAZOLE SODIUM TAB 40 MG PO SCH (06:14)
[2018-11-21] MEDS: INSULIN LISPRO 100 UNITS/ML PEN SUBCU SCH ×7 (07:58→21:04)
[2018-11-21] MEDS: IPRATROPIUM/ALBUTEROL 3 ML VIAL INH SCH ×4 (08:00→19:40)
[2018-11-21] MEDS: POTASSIUM CHLORIDE 20 MEQ TAB PO SCH (08:01)
--- NOTE | 2018-11-21 09:03 | RAD ---
EXAM DESCRIPTION: Chest,2 Views CLINICAL HISTORY: 73 years Male CHF exacerbation COMPARISON: Portable chest 11/20/2018 TECHNIQUE: A single frontal projection of the chest is obtained. FINDINGS: Heart: Allowing for magnification factors related to AP portable technique and large body habitus , the heart is mildly enlarged. Vasculature: There is mild atherosclerosis and tortuosity of the aorta. The pulmonary vascularity is normal. Mediastinum: Unremarkable otherwise. No evidence of mass or adenopathy. Lungs: Interstitial edema has improved in the interim. Minimal haziness in the lower lungs may reflect mild edema versus infection and appears largely unchanged. [] Pleural spaces: There is blunting of the left costophrenic angle consistent with scarring or a small pleural effusion. There are no pneumothoraces. Osseous structures: There is no evidence of acute fracture, osseous destruction or osteoblastic lesions. [] Tubes and catheters: None. Upper abdomen: No acute findings. [] IMPRESSION: Minimal haziness in the lower lungs may reflect edema versus infection and appears largely unchanged [] Improving congestive heart failure/fluid overload. Remainder of findings as described above. Electronically signed by: Mulu Camara MD 11/21/2018 9:02 AM [facility]
[2018-11-21] MEDS ORDERED: cefTRIAXone SODIUM 1 GM VIAL ONE (09:57)
[2018-11-21] MEDS ORDERED: SODIUM CHL 0.9% 50ML MIN-BAG+ 50 ML IVPB ONE (09:57)
[2018-11-21] MEDS: cefTRIAXone SODIUM 1 GM in SODIUM CHL 0.9% 50ML MIN-BAG+ 50 ML IVPB SCH ×2 (09:59→11:35)
[2018-11-21] MEDS: INSULIN PROTAMINE/LISPRO 75/25 100 UNITS/ML PEN SUBCU SCH (10:01)
[2018-11-21] MEDS: MAGNESIUM OXIDE 400 MG TAB PO SCH ×2 (10:02→20:30)
[2018-11-21] MEDS ORDERED: SODIUM CHLORIDE 0.9% (FLUSH) 10 ML SYG IV ONE (10:02)
[2018-11-21] MEDS: ENALAPRIL MALEATE 5 MG TAB PO SCH (10:03)
[2018-11-21] MEDS: amLODIPine BESYLATE 5 MG TAB PO SCH (10:03)
[2018-11-21] MEDS: METOPROLOL SUCCINATE XL 100 MG TAB PO SCH (10:03)
[2018-11-21] MEDS: NITROGLYCERIN 0.4 MG/HR PATCH TOP SCH (10:03)
[2018-11-21] MEDS: SODIUM CHLORIDE 0.9% (FLUSH) 10 ML SYG IV SCH ×2 (10:30→20:30)
[2018-11-21] MEDS ORDERED: SODIUM CHLORIDE 0.9% 250ML 250 ML ONE (13:20)
[2018-11-21] MEDS ORDERED: AZITHROMYCIN IV 500 MG VIAL IVPB ONE (13:20)
[2018-11-21] MEDS: AZITHROMYCIN IV 500 MG in SODIUM CHLORIDE 0.9% 250ML 250 ML IVPB SCH (13:23)
[2018-11-21] MEDS: IV SET AND CAP CHANGE INJ INJ SCH (13:31)
--- NOTE | 2018-11-21 18:07 | CT ---
EXAM DESCRIPTION: Abdoment/Pelvis w/o Contrast CLINICAL HISTORY: pain COMPARISON: 06/22/2018. TECHNIQUE: Contiguous axial images of the abdomen and pelvis were obtained followed by reconstruction images. This exam was performed according to our departmental dose-optimization program, which includes automated exposure control, adjustment of the mA and/or kV according to patient size and/or use of iterative reconstruction technique. FINDINGS: There is a moderate right and small left pleural effusion. Atelectasis and consolidation are seen at each lung base, left greater than right. There are multiple calcified gallstones in the gallbladder lumen with mild pericholecystic fluid and slight gallbladder wall thickening. There is anasarca. Nonobstructive right renal stones measuring up to 3 mm. Nonspecific mildly increased attenuation lesion measures 8 mm at the lateral aspect of the right kidney and smaller poorly defined mildly increased attenuation lesions are seen elsewhere at the periphery of the right kidney. There is right perinephric stranding. The right ureter is mildly dilated proximally and there is a 1 mm probable stone at the distal aspect of this region of mild dilatation in the mid right ureter. There is a right urinary bladder diverticulum that extends into the right inguinal canal along with fat. Small amount of fat extends into the left inguinal canal as well. No left ureteral stone is seen. However there are a few left renal stones measuring up to 4 mm diameter. These are nonobstructive. There is slight left perinephric soft tissue stranding. Moderate stool is in the colon. There are bilateral adrenal masses, measuring 18 mm diameter on the left and 18 mm diameter on the right. There several small paraumbilical hernias containing fat but no bowel. There are scattered shotty mesenteric lymph nodes. Aorta is of normal caliber and tapering. There is no bowel obstruction. IMPRESSION: Gallstones with possible cholecystitis. Urinary bladder diverticulum. Renal stones. Probable partially obstructive tiny right ureteral stone. Anasarca. Bilateral adrenal masses. Periumbilical hernias. Electronically signed by: Emery Torres 11/21/2018 6:06 PM FINANCIAL SERVICES CONSULTANT
[2018-11-21] MEDS: ENOXAPARIN SODIUM 30 MG/0.3 ML SYG SUBCU SCH (20:29)
[2018-11-21] MEDS: REMOVE OLD PATCH TOP SCH (21:05)
--- NOTE | 2018-11-21 21:10 | PN ---
DATE: 11/21/18 SUPERVISING PHYSICIAN: Carlos Alberto York M.D. SUBJECTIVE: The patient seems to be doing okay this morning. He had a little episode of chest pain yesterday that ended up being basically some gas type pain that was relieved without any intervention or possibly related to anxiety is what he felt. He has not had any recurrence of the pain. He is not having any significant shortness of breath at this point. He does remain on a bicarb drip. We discussed that we would continue that through this afternoon and then discontinue with hopefully being able to anticipate discharging tomorrow. OBJECTIVE: VITAL SIGNS: Temperature 97.8, pulse 70, blood pressure 135/44, respirations 18, satting 98% on room air. I's and O's show a negative balance of 560 with 1440 in, 2000 out. Weight is 88.7 kg which is up from yesterday of 87.9. CHEST: Lungs are clear to auscultation bilaterally without any rhonchi, wheezing or rales, just slightly diminished towards the bases bilaterally. HEART: Regular rate and rhythm. ABDOMEN: Obese but soft, non-tender. Positive bowel sounds. EXTREMITIES: No cyanosis, clubbing or edema. NEUROLOGIC: He is alert and oriented times three. LABORATORY: Creatinine still show some elevation at 5.35 which is up from yesterday at 5.24. BUN is 44. Electrolytes are showing normal limits. Carbon dioxide continues to show low limits at 19. Blood sugar is now between 105 and 238. MICROBIOLOGY: Sputum culture continues to be pending. Blood cultures remain negative. RADIOLOGY: Repeat chest x-ray this morning per radiology interpretation shows minimal haziness in the lower lungs which may reflect edema versus infection, appears largely unchanged. There is improvement of congestive heart failure/fluid overload. ASSESSMENT: 1. Acute on chronic renal failure with slight worsening probably due to aggressive diuresis with Lasix with the patient's creatinine baseline being around 3. 2. Exacerbation of chronic obstructive pulmonary disease with concerns for probable community acquired pneumonia with the patient having a history of smoking, but quitting in August of 2018 and continues to be encouraged to stop smoking, showing improvement with more aggressive management. 3. Congestive heart failure with an exacerbation secondary to #1 with elevated BNP on admission at 2,500 with last echocardiogram noted to be in 08/2018 with grade 3/4 diastolic ejection fraction being 65% showing slight improvement with diuretics and the patient already on beta rosario and PILO inhibitor. 4. Nausea, vomiting and dehydration, probably due to viral gastritis, at this point resolved. 5. Electrolyte imbalance, specifically hypokalemia and hypomagnesemia showing to be stable after replacement. 6. Diabetes mellitus, type 2, on insulin therapy showing to be elevated, but improving, probably exacerbated by some of the steroids. PLAN: Will continue with his bicarb infusion for another liter this afternoon and will saline lock him. He is no longer on Solu-Medrol and he has been off Lasix now for 24 hours. It looks like he is probably more euvolemic at this time. Will continue to monitor closely as he comes off the bicarb drip. Will recheck his labs in the morning. Again, I tried to touch base with Dr. Peguero but again he does not answer the phone calls. I anticipate hopefully being able to discharge tomorrow. Until then, will continue to monitor and treat as needed. [facility][id number] [facility]
[2018-11-22] MEDS: ALBUTEROL SULFATE 2.5 MG/3 ML VIAL NEB PRN (03:10)
[2018-11-22] MEDS ORDERED: SODIUM CHLORIDE 0.65% NASAL SPRAY 45 ML BTTL BNAS PRN (03:15)
[2018-11-22] MEDS: cloNIDine HCL 0.1 MG TAB PO SCH (05:33)
[2018-11-22] MEDS: PANTOPRAZOLE SODIUM TAB 40 MG PO SCH (06:06)
[2018-11-22] MEDS ORDERED: CARVEDILOL 3.125 MG TAB ONE (06:33)
[2018-11-22] MEDS ORDERED: LOSARTAN POTASSIUM 100 MG TAB ONE (06:33)
[2018-11-22] MEDS ORDERED: FUROSEMIDE INJ 40 MG/4 ML VIAL ONE (06:33)
[2018-11-22] MEDS: INSULIN LISPRO 100 UNITS/ML PEN SUBCU SCH ×2 (07:48→07:49)
[2018-11-22] MEDS: POTASSIUM CHLORIDE 20 MEQ TAB PO SCH (07:54)
[2018-11-22] MEDS: IPRATROPIUM/ALBUTEROL 3 ML VIAL INH SCH ×3 (08:01→11:14)
[2018-11-22] MEDS: INSULIN PROTAMINE/LISPRO 75/25 100 UNITS/ML PEN SUBCU SCH (08:37)
[2018-11-22] MEDS: ENALAPRIL MALEATE 5 MG TAB PO SCH (08:40)
[2018-11-22] MEDS: NITROGLYCERIN 0.4 MG/HR PATCH TOP SCH (08:42)
[2018-11-22] MEDS: amLODIPine BESYLATE 5 MG TAB PO SCH (08:42)
[2018-11-22] MEDS: METOPROLOL SUCCINATE XL 100 MG TAB PO SCH (08:42)
[2018-11-22] MEDS: MAGNESIUM OXIDE 400 MG TAB PO SCH (08:42)
[2018-11-22 10:02] VITALS: BP 161/66; TEMP 97.9; O2SAT 98
--- NOTE | 2018-11-23 10:42 | DS ---
SUPERVISING PHYSICIAN: Susanne York MD ADMISSION DIAGNOSIS: 1. Acute on chronic renal failure. His baseline creatinine is approximately 3. Today, it is 5.43. 2. Nausea, vomiting and dehydration most likely secondary to viral gastritis. 3. Electrolyte imbalance, specifically hypokalemia, hypomagnesemia and hyperchloremia, mostly due to his gastritis, but may be secondary to his chronic diarrhea. 4. Diabetes mellitus, type 2, on insulin therapy. DISCHARGE DIAGNOSIS: 1. Acute on chronic renal failure, probably due to ongoing diuresis with Lasix with the patient's creatinine baseline being around 3 with creatinine starting to trend down prior to discharge. 2. Exacerbation of chronic obstructive pulmonary disease with probable community acquired pneumonia with the patient having received a full course of azithromycin and showing clinical improvement and continued to encourage to stop smoking with quitting in August of 2018. 3. Congestive heart failure with an exacerbation due to acute renal failure with BNP on admission at 2,500, trending down prior to discharge, with the patient having history of last echocardiogram in 08/2018 showing grade 3/4 diastolic failure with ejection fraction being 65%, continuing to show improve with diuretics with the patient already on beta rosario and PILO inhibitor. 4. Nausea, vomiting and dehydration, probably due to viral gastritis, but cannot completely rule out acute cholecystitis. 5. Electrolyte imbalance, specifically hypokalemia and hypomagnesemia, improving with therapy. 6. Diabetes mellitus, type 2, on insulin therapy with elevation secondary to initial steroids on admission. 7. Cholelithiasis with concern for developing possible cholecystitis with the patient having no symptoms at time of discharge. REASON FOR HOSPITALIZATION: This is a 73-year-old male patient with a 24 hour history of nausea and vomiting. He has had chronic diarrhea for many years and has a partial colectomy. He also has chronic renal failure with a baseline creatinine of about 3. He typically gets nauseated when his magnesium gets low. In the Emergency Room, he was given some fluids and his lab was drawn. His WBCs were 9.8 with hemoglobin 11.7, hematocrit 34.9. Sodium 145, potassium 3.4, chloride 116, carbon dioxide 18, BUN 34, creatinine 5.43. His baseline creatinine is usually about 3. Glucose 168, serum osmolality 30.9, magnesium 1.3, calcium 7.6. Liver enzymes were within normal limits. Urinalysis showed greater than 300 urine protein, 100 urine glucose and a small amount of urine blood. Dr. Joel Peguero, the patient's exceptional children teacher assistant, was contacted by the Emergency Room physician. He has an appointment with Dr. Peguero on Friday and Dr. Peguero recommended the patient be admitted and I was called for hospital admission. LABORATORY: White count on admission was 9,800, hemoglobin 11.7, hematocrit 34.9 with white count, hemoglobin and hematocrit being stable at discharge with no significant changes. Platelet count 151,000. Differential was without a left shift on admission, but prior to discharge did show a left shift. Blood gas analysis showed pH 7.38, pCO2 30, pO2 80, bicarb 17, O2 saturation 96% on room air. Chemistries on admission showed chloride 116, potassium 3.4, BUN 34, creatinine 5.43, glucose 181, calcium 7.6, magnesium 1.3. Liver functions within normal limits. Magnesium normalized with replacement to 2.0. Electrolytes showed improvement prior to discharge with fluid therapy showing potassium 4.4, BUN down to 46, creatinine down to 5.28. Blood sugars had ranged between 93 and 288. BNP was elevated on admission at 2510, but was trending back to baseline and was at 978 prior to discharge. Urinalysis showed greater than 300 protein, 100 glucose, small amount of blood, otherwise within normal limits. MICROBIOLOGY: Sputum culture at discharge showed a few mixed gram positive victor hugo with final culture pending. Blood cultures showed negative growth at 3 days. RADIOLOGY: Chest x-ray on admission per radiologic interpretation showed lungs to be hyperexpanded. There was perihilar and basilar interstitial opacities with patchy left greater than right airspace opacities with findings likely secondary to congestive heart failure with pulmonary edema and multifocal pneumonia may have a similar appearance. This was followed up after treatment and on 11/21/18, x-ray per radiologic interpretation showed minimal haziness in the lower lung noyola which may reflect edema which appeared largely unchanged, but improving congestive heart failure or fluid overload as mentioned. Please see that report for full details. He also had a CT of the abdomen and pelvis due to some acute lower abdominal pains and per radiologic interpretation, there was note of gallstones with possible cholecystitis and urinary bladder diverticula with renal stones, probable partially obstructing right ureteral stone with some anasarca and bilateral adrenal masses with periumbilical hernias. HOSPITAL COURSE: Mr. Carreon was admitted on 11/18/18. He was started on Lasix and did diurese well. Dr. Peguero, his exceptional children teacher assistant, was consulted and he was started on a bicarb infusion, which he stayed on for three days. 24 hours prior to discharge, he had been taken off and was on oral therapy only. He was showing good improvement. He did have an episode of nausea and vomiting initially on admission and then some right lower quadrant abdominal pain which dissipated without any medical assistance. He was felt to be clinically stable enough to continue with outpatient management followup with Dr. Peguero. PLAN: Mr. Carreon was discharged on 11/22/17 with instructions to followup with Dr. Peguero in the following week as well as Dr. York. He was to resume his home medications as instructed and told to return to the hospital should he have any concerning symptoms. No new medications were prescribed at time of discharge. He was provided teaching for congestive heart failure as well as regard to his low magnesium levels and his worsening kidney function. DISPOSITION: The patient was discharged home. CONDITION AT DISCHARGE: Stable and improving. #[id number] [facility]
== END 2018-11-22 11:20 | disposition home or self-care (01) | DRG 682 ==
LOC: ER 08:06 → OBSVTOIN 10:22 → MS 10:22
PROVIDERS: ADMIT Nurse Practitioner Acute Care; ATTEND Nurse Practitioner Acute Care
DX: N17.9 Acute kidney failure, unspecified (principal); J18.9 Pneumonia, unspecified organism; J44.1 Chronic obstructive pulmonary disease with (acute) exacerbation; J44.0 Chronic obstructive pulmonary disease with (acute) lower respiratory infection; I50.33 Acute on chronic diastolic (congestive) heart failure; I13.0 Hypertensive heart and chronic kidney disease with heart failure and stage 1 through stage 4 chronic kidney disease, or unspecified chronic kidney disease; N18.9 Chronic kidney disease, unspecified; E11.22 Type 2 diabetes mellitus with diabetic chronic kidney disease; E86.0 Dehydration; E87.6 Hypokalemia; E83.42 Hypomagnesemia; A08.4 Viral intestinal infection, unspecified; E11.65 Type 2 diabetes mellitus with hyperglycemia; T50.1X5A Adverse effect of loop [high-ceiling] diuretics, initial encounter; T38.0X5A Adverse effect of glucocorticoids and synthetic analogues, initial encounter; K80.20 Calculus of gallbladder without cholecystitis without obstruction; I25.10 Atherosclerotic heart disease of native coronary artery without angina pectoris; K21.9 Gastro-esophageal reflux disease without esophagitis; E66.9 Obesity, unspecified; Y92.230 Patient room in hospital as the place of occurrence of the external cause; Z79.4 Long term (current) use of insulin; Z87.891 Personal history of nicotine dependence; Z90.49 Acquired absence of other specified parts of digestive tract; Z88.7 Allergy status to serum and vaccine; Z79.899 Other long term (current) drug therapy

== ENCOUNTER 2018-12-05 01:29 | Emergency (ER) | payer MEDICARE ==
[2018-12-05 01:42] VITALS: TEMP 98.9
[2018-12-05] MEDS ORDERED: SODIUM CHLORIDE 0.9% 500ML 500 ML ONE (01:58)
--- NOTE | 2018-12-05 02:03 | ED.PDOC ---
History of Present Illness - General Chief Complaint: GI Problem Stated Complaint: nausea x's 3 hours, gets like this when mag is low Time Seen by Provider: 12/05/18 01:59 Information Source: patient Exam Limitations: no limitations - History of Present Illness Initial Comments: VOMITING SINCE LAST NIGHT. HE HAS A PARTIAL COLECTOMY AND ALWAYS HAS DIARRHEA. HE HAS CHRONIC LOW MAGNESIUM AND PHOSPORUS AND HE GETS SICK WHEN THE MAGNESIUM IS LOW. HE VOICES THAT HE WAS RECENTLY IN THE HOSPITAL FOR PNEUMONIA, STILL COUGHING BUT DENIES ANY FEVER. HE HAS CHRONIC KIDNEY INJURY AND SEES DR. BNAG. Abdominal Pain Onset Location: epigastric Pain Radiation: no radiation Quality: mild Timing/Duration: 4-6 hours Improving Factors: nothing Worsening Factors: nothing Review of Systems - Review of Systems Constitutional: States: malaise, weakness EENTM: States: other Respiratory: States: cough Cardiology: States: no symptoms reported Gastrointestinal/Abdominal: States: abdominal pain, diarrhea, nausea, vomiting Genitourinary: States: no symptoms reported Musculoskeletal: States: no symptoms reported Skin: States: no symptoms reported Neurological: States: no symptoms reported Endocrine: States: no symptoms reported Hematologic/Lymphatic: States: no symptoms reported Past Medical History (General) - Patient Medical History Hx Seizures: No Hx Stroke: No Hx Dementia: No Hx Asthma: Yes Hx of COPD: Yes Hx Cardiac Disorders: No Hx Congestive Heart Failure: Yes Hx Pacemaker: No Hx Hypertension: Yes Hx Thyroid Disease: No Hx Diabetes: Yes Hx Gastroesophageal Reflux: No Hx Renal Disease: Yes Hx Cancer: No Hx of HIV: No Hx Hepatitis C: No Hx MRSA: No MRSA Source:: Wound Surgical History: appendectomy, colectomy - Vaccination History Hx Tetanus, Diphtheria Vaccination: - allergic to tetnus Hx Influenza Vaccination: Yes Hx Pneumococcal Vaccination: Yes - Social History Hx Tobacco Use: Yes - quit August 2018 Hx Chewing Tobacco Use: No Hx Alcohol Use: No Hx Substance Use: No Hx Substance Use Treatment: No Hx Depression: No Hx Physical Abuse: No Hx Emotional Abuse: No Hx Suspected Abuse: No - Female History Patient : No Family Medical History - Family History Father Family History: Unknown Living Status: Age at (years of age): 62 Cause of : "blood poisoning" Hx Family Asthma: No Hx Family Congestive Heart Failure: No Hx Family Hypertension: No Hx Family Stroke: No Hx Cardiac Disease: No Hx Family Diabetes: Yes - mom Hx Family Cancer: No Physical Exam - Physical Exam General Appearance: Alert, Restless, Well Developed, Well Groomed Eyes, Ears, Nose, Throat Exam: PERRL/EOMI, pharynx normal, other - ORAL MUCOSA IS DRY Neck: non-tender, full range of motion, normal inspection Respiratory: chest non-tender, no accessory muscle use, rhonchi Cardiovascular/Chest: normal peripheral pulses, regular rate, rhythm, no gallop, no JVD Peripheral Pulses: No deficit Gastrointestinal/Abdominal: normal bowel sounds, soft, no organomegaly, no pulsatile mass Rectal Exam: deferred Back Exam: normal inspection, no CVA tenderness Extremity: normal range of motion, non-tender, normal inspection Neurologic: no motor/sensory deficits, oriented x 3 Skin Exam: normal color Lymphatic: no adenopathy Progress - Progress Progress: 12/05/18 02:26 review of records: HE WAS HERE ON 11/22/2018 FOR SIMILAR PROBLEMS. A CT OF THE ABDOMEN THEN REPORTED GALLSTONES WITH PROBABLE MILD CHOLECYSTITIS. THE PATIENT HAS AN APPOINTMENT WITH DR. BELTRAN IN THE NEAR FUTURE. HIS MAGNESIUM IS LOW AT 1.4 WILL REPLACE. - Results/Orders Results/Orders: 12/05/18 02:00 EKG STAT 12/05/18 02:11 Sodium Chloride 0.9% 500Ml [NS 500ml] 500 ml IVS .QD 12/05/18 02:19 Magnesium Sulfate Premix 2Gm 2 gm Premix Bag 1 bag IVPB ONCE Laboratory Results WBC 10.0 K/mm3 (4.8-10.8) 12/05/18 01:57 RBC 4.27 M/mm3 (4.70-6.10) L 12/05/18 01:57 Hgb 12.5 gm/dL (14.0-18.0) L 12/05/18 01:57 Hct 37.5 % (42.0-52.0) L 12/05/18 01:57 MCV 87.8 fl (80.0-94.0) 12/05/18 01:57 MCH 29.2 pg (27.0-31.0) 12/05/18 01:57 MCHC 33.3 g/dL (33.0-37.0) 12/05/18 01:57 RDW 15.5 % (11.5-14.5) H 12/05/18 01:57 Plt Count 169 K/mm3 (130-400) 12/05/18 01:57 MPV 8.8 fl (7.40-10.4) 12/05/18 01:57 Absolute Neuts (auto) 7.20 K/uL (1.8-6.8) H 12/05/18 01:57 Absolute Lymphs (auto) 1.50 K/uL (1.0-3.4) 12/05/18 01:57 Absolute Monos (auto) 0.90 K/uL (0.2-0.8) H 12/05/18 01:57 Absolute Eos (auto) 0.40 K/uL (0.0-0.4) 12/05/18 01:57 Absolute Basos (auto) 0.10 K/uL (0.0-0.1) 12/05/18 01:57 Neutrophils % 71.7 % (42.0-78.0) 12/05/18 01:57 Lymphocytes % 15.2 % (20.0-50.0) L 12/05/18 01:57 Monocytes % 8.6 % (2.0-9.0) 12/05/18 01:57 Eosinophils % 3.6 % (1.0-5.0) 12/05/18 01:57 Basophils % 0.9 % (0.0-2.0) 12/05/18 01:57 Sodium 140 mmol/L (135-145) 12/05/18 01:57 Potassium 3.2 mmol/L (3.6-5.0) L 12/05/18 01:57 Chloride 107 mmol/L (101-111) 12/05/18 01:57 Carbon Dioxide 22 mmol/L (21-31) 12/05/18 01:57 Anion Gap 14.2 (12-18) 12/05/18 01:57 BUN 45 mg/dL (7-18) H 12/05/18 01:57 Creatinine 4.80 mg/dL (0.6-1.3) H 12/05/18 01:57 BUN/Creatinine Ratio 9.4 (10-20) L 12/05/18 01:57 Random Glucose 188 mg/dL (70-105) H 12/05/18 01:57 Serum Osmolality 295.9 mOsm/L (275-295) H 12/05/18 01:57 Calcium 7.5 mg/dL (8.4-10.2) L 12/05/18 01:57 Phosphorus 5.0 mg/dL (2.5-4.6) H 12/05/18 01:56 EKG: Magnesium 1.4 mg/dL (1.8-2.5) L 12/05/18 01:57 Total Bilirubin 0.3 mg/dL (0.2-1.0) 12/05/18 01:57 AST 19 IU/L (10-42) 12/05/18 01:57 ALT 17 IU/L (10-60) 12/05/18 01:57 Alkaline Phosphatase 77 IU/L (42-121) 12/05/18 01:57 Serum Total Protein 6.3 gm/dL (6.4-8.2) L 12/05/18 01:57 Albumin 2.5 g/dl (3.2-5.5) L 12/05/18 01:57 Globulin 3.8 gm/dL (2.3-3.5) H 12/05/18 01:57 Albumin/Globulin Ratio 0.7 (1.1-1.9) L 12/05/18 01:57 EKG: HR OF 74, FL INTERVAL OF 242, QRS OF 146, QTC OF 492, AXES -79 DEGREES. IMPRESSION: SINUS RHYTHM, FIRST DEGREE AV BLOCK, BIFASCICULAR BLOCK, LVH. after 4 grams of mg sulfate the level is 2.9- will dc home Departure - Departure Clinical Impression: Hypomagnesemia syndrome Chronic kidney disease Qualifiers: Chronic kidney disease stage: stage 3 (moderate) Qualified Code(s): N18.3 - Chronic kidney disease, stage 3 (moderate) Time of Disposition: 04:45 Disposition: Discharge to Home or Self Care Condition: Good Departure Forms: ED Discharge - Pt. Copy, Patient Portal Self Enrollment Instructions: Low Magnesium Level (DC) Referrals: PANFILO RIBERA MD [Primary Care Provider] - 1-2 Weeks Prescriptions: Ondansetron HCl [Zofran] 4 mg PO Q8HRS #8 ml Diphenoxylate/Atropine [Lomotil Tab] 1 tab PO BID #20 tab Home Medications: Ambulatory Orders Amlodipine Besylate 10 mg PO DAILY 07/13/13 Clonidine HCl 0.1 mg PO DAILY 07/13/13 Enalapril Maleate 20 mg PO DAILY 07/13/13 Metoprolol Tartrate 100 mg PO DAILY 07/13/13 Insulin Aspart Protamine & Asp [Novolog Mix 70/30 (70-30) 100 Unit/ml] 20 unit SC DAILY 05/25/15 Potassium Chloride Tab [K-Dur] 20 meq PO DAILYBK #30 tab 06/23/16 Magnesium Oxide 800 mg PO BID 11/18/18 Diphenoxylate/Atropine [Lomotil Tab] 1 tab PO BID #20 tab 12/05/18 Ondansetron HCl [Zofran] 4 mg PO Q8HRS #8 ml 12/05/18
[2018-12-05] MEDS ORDERED: SODIUM CHLORIDE 0.9% 500ML 500 ML IVS PRN (02:11)
[2018-12-05] MEDS ORDERED: ONDANSETRON INJ 4 MG/2 ML VIAL IV ONE (02:12)
--- NOTE | 2018-12-05 02:17 | RAD ---
CLINICAL HISTORY: coughing x's 2 weeks COMPARISON: November 21, 2018. TECHNIQUE: XR CHEST 1 VIEW 12/05/2018 1:53 AM PATTERN CHANGER FINDINGS: Cardiac silhouette is normal in size. Lungs are clear without consolidation, atelectasis, mass or edema. There is no pleural effusion. There is no pneumothorax. There are no acute osseous findings. IMPRESSION: Clear lungs. Electronically signed by: Laci Boothe MD 12/05/2018 2:15 AM PATTERN CHANGER
[2018-12-05] MEDS ORDERED: MAGNESIUM SULFATE PREMIX 2GM 2 GM in PREMIX BAG 1 BAG IVPB ONE ×2 (02:19→02:45)
[2018-12-05] MEDS ORDERED: MAGNESIUM SULFATE PREMIX 2GM 50 ML IVPB ONE ×2 (02:23→03:07)
[2018-12-05] MEDS ORDERED: hydrALAZINE HCl 20 MG/ML VIAL IV ONE (02:46)
[2018-12-05] MEDS ORDERED: BENZONATATE PERLES 100 MG CAP PO ONE (02:48)
[2018-12-05 04:33] VITALS: O2SAT 96
[2018-12-05 04:55] VITALS: BP 174/79
== END 2018-12-05 04:55 | disposition home or self-care (01) ==
LOC: ER 01:29
DX: E83.42 Hypomagnesemia (principal); N18.3 Chronic kidney disease, stage 3 (moderate); I44.0 Atrioventricular block, first degree; I45.2 Bifascicular block; I50.9 Heart failure, unspecified; E11.9 Type 2 diabetes mellitus without complications; I13.0 Hypertensive heart and chronic kidney disease with heart failure and stage 1 through stage 4 chronic kidney disease, or unspecified chronic kidney disease; J44.9 Chronic obstructive pulmonary disease, unspecified; Z87.891 Personal history of nicotine dependence
CPT/HCPCS: 36415; 71045; 80053; 83735; 84100; 85025; 93005; J0360; J2405; J3475; J7040

== ENCOUNTER → 2018-12-07 | Outpatient (CLI) | payer MEDICARE | LOC: LAB.O 09:52 | PROVIDERS: ATTEND Internal Medicine | DX: N18.4 Chronic kidney disease, stage 4 (severe) (principal) ==

== ENCOUNTER → 2018-12-14 | Outpatient (CLI) | payer MEDICARE | LOC: GMAE 10:38 → EDSTATUS 15:16 | PROVIDERS: ATTEND Family Medicine | DX: E83.42 Hypomagnesemia (principal) ==

== ENCOUNTER 2018-12-17 07:57 | Emergency (ER) | payer MEDICARE ==
[2018-12-17] MEDS ORDERED: METOPROLOL TARTRATE 50 MG TAB PO ONE (08:12)
[2018-12-17] MEDS ORDERED: cloNIDine HCL 0.1 MG TAB PO ONE (08:12)
[2018-12-17] MEDS ORDERED: ONDANSETRON ODT 8 MG TAB SL ONE (08:12)
[2018-12-17] MEDS ORDERED: ENALAPRIL MALEATE 5 MG TAB PO ONE (08:12)
[2018-12-17] MEDS ORDERED: SODIUM CHLORIDE 0.45% 1000ML 1,000 ML IVS ONE (10:55)
[2018-12-17] MEDS ORDERED: SODIUM BICARBONATE SYRINGE 50 MEQ/50 ML SYG IV ONE (11:00)
--- NOTE | 2018-12-17 11:01 | ED.PDOC ---
History of Present Illness - General Chief Complaint: General Stated Complaint: weakness,low magnesium Time Seen by Provider: 12/17/18 08:07 Source: patient Exam Limitations: no limitations - History of Present Illness Initial Comments: the patient is a 73-year-old male presenting to the emergency room secondary to a feeling of fatigue and generalized weakness. He reports that he has felt this way before when he was having kidney issues and a low magnesium level. No fevers. Mild nausea but no vomiting. No syncope. Blood pressure is markedly elevated with a systolic around 230 this morning. He reports that he has not yet taken his blood pressure medicines. He does have a known history of renal failure and does see Dr. Peguero. He was apparently supposed to be started on dialysis next week. He does not have any dialysis site at this time. No new symptoms otherwise. No fever. No copious diarrhea. No dietary changes. He does still make adequate urine. Timing/Duration: unsure Severity: moderate Improving Factors: nothing Worsening Factors: nothing Associated Symptoms: loss of appetite, malaise, nausea/vomiting, weakness Allergies/Adverse Reactions: Allergies Tetanus Toxoid Allergy (Verified 12/05/18 01:41) Swelling of extremities Home Medications: Ambulatory Orders Amlodipine Besylate 10 mg PO DAILY 07/13/13 Clonidine HCl 0.1 mg PO DAILY 07/13/13 Enalapril Maleate 20 mg PO DAILY 07/13/13 Metoprolol Tartrate 100 mg PO DAILY 07/13/13 Insulin Aspart Protamine & Asp [Novolog Mix 70/30 (70-30) 100 Unit/ml] 20 unit SC DAILY 05/25/15 Potassium Chloride Tab [K-Dur] 20 meq PO DAILYBK #30 tab 06/23/16 Magnesium Oxide 800 mg PO BID 11/18/18 Diphenoxylate/Atropine [Lomotil Tab] 1 tab PO BID #20 tab 12/05/18 Ondansetron HCl [Zofran] 4 mg PO Q8HRS #8 ml 12/05/18 Review of Systems - Review of Systems Constitutional: States: malaise, weakness - generalized EENTM: States: no symptoms reported Respiratory: States: no symptoms reported Cardiology: States: no symptoms reported Gastrointestinal/Abdominal: States: nausea Genitourinary: States: no symptoms reported Musculoskeletal: States: no symptoms reported Skin: States: no symptoms reported Neurological: States: headache - mild, weakness - generalized All other Systems: No Change from Baseline Past Medical History (General) - Patient Medical History Hx Seizures: No Hx Stroke: No Hx Dementia: No Hx Asthma: Yes Hx of COPD: Yes Hx Cardiac Disorders: No Hx Congestive Heart Failure: Yes Hx Pacemaker: No Hx Hypertension: Yes Hx Thyroid Disease: No Hx Diabetes: Yes Hx Gastroesophageal Reflux: No Hx Renal Disease: Yes Hx Cancer: No Hx of HIV: No Hx Hepatitis C: No Hx MRSA: No MRSA Source:: Wound Surgical History: appendectomy - Vaccination History Hx Tetanus, Diphtheria Vaccination: - allergic to tetnus Hx Influenza Vaccination: Yes Hx Pneumococcal Vaccination: Yes - Social History Hx Tobacco Use: Yes - Quit in 09/03 Hx Chewing Tobacco Use: No Hx Alcohol Use: No Hx Substance Use: No Hx Substance Use Treatment: No Hx Depression: No Hx Physical Abuse: No Hx Emotional Abuse: No Hx Suspected Abuse: No - Female History Patient : No Family Medical History - Family History Father Family History: Unknown Living Status: Age at (years of age): 62 Cause of : "blood poisoning" Hx Family Asthma: No Hx Family Congestive Heart Failure: No Hx Family Hypertension: No Hx Family Stroke: No Hx Cardiac Disease: No Hx Family Diabetes: Yes - mom Hx Family Cancer: No Physical Exam - Physical Exam General Appearance: Alert, Comfortable, No apparent distress Eye Exam: bilateral normal Ears, Nose, Throat: hearing grossly normal, normal ENT inspection, normal pharynx Neck: full range of motion, supple Respiratory: lungs clear, normal breath sounds, no respiratory distress, no accessory muscle use Cardiovascular/Chest: normal peripheral pulses, regular rate, rhythm, no edema Peripheral Pulses: radial,right: 2+, radial,left: 2+, dorsalis pedis,right: 2+, dorsalis pedis,left: 2+ Gastrointestinal/Abdominal: non tender, soft Rectal Exam: deferred Back Exam: normal inspection, no CVA tenderness, no vertebral tenderness Extremity: normal range of motion, non-tender, normal inspection Neurologic: punch finisher II-XII nml as tested, alert, normal mood/affect, oriented x 3 Skin Exam: normal color Comments: Vital Signs - 24 hr 12/17/18 12/17/18 12/17/18 08:07 09:11 10:11 Temperature 97.6 F Pulse Rate [ 70 54 L 51 L Left Brachial] Respiratory 20 20 20 Rate Blood Pressure 230/91 197/95 137/65 [Left Arm] O2 Sat by Pulse 99 97 98 Oximetry Progress - Progress Progress: 12/17/18 11:02 the patient is a 73-year-old male presenting to the emergency room secondary to feelings of generalized weakness and fatigue. He was found to have a hypertensive emergency which has largely been corrected to this point. He is feeling a little better. The patient however does have end-stage renal disease and appears to have an associated hyperchloremic metabolic acidosis. The patient is going to be transferred to [facility] for further evaluation and intervention with nephrology. He has been started on one half NS with 2 A of sodium bicarbonate for 1 L only. Repeat electrolytes including magnesium and phosphate levels are recommended upon arrival. They cannot be obtained here currently due to difficulties in the lab. Additionally a repeat blood glucose would be warranted. No additional insulin has been given at this time. The patient is alert and oriented 4. He is in agreement with the plan. No eviden ce of fluid overload at this time. He does already see Dr. Peguero with nephrology. critical care time spent on treatment of above measures as well as arrangement for plan of care Excluding otherwise billable procedures is 40 minutes. - Results/Orders Results/Orders: Laboratory Tests 12/17/18 12/17/18 12/17/18 08:35 08:35 10:25 WBC 8.2 RBC 4.13 L Hgb 12.2 L Hct 37.5 L MCV 90.8 MCH 29.5 MCHC 32.7 L RDW 15.6 H Plt Count 184 MPV 8.5 Absolute Neuts (auto) 5.60 Absolute Lymphs (auto) 1.70 Absolute Monos (auto) 0.50 Absolute Eos (auto) 0.40 Absolute Basos (auto) 0.10 Neutrophils % 67.7 Lymphocytes % 20.3 Monocytes % 6.5 Eosinophils % 4.6 Basophils % 0.9 pCO2 23 L pO2 101 HCO3 9.3 ABG pH 7.230 L* ABG O2 Saturation 99.0 ABG Base Excess -16.8 ABG Deoxyhemoglobin 1.0 Oxyhemoglobin % 97.5 Carboxyhemoglobin % 0.3 L Methemoglobin % Sat 1.2 Calc Total Hemoglobin 10.7 L Sodium 146 Potassium 5.4 Chloride 126 H* Carbon Dioxide 14 L* Anion Gap 11.4 L BUN 45 H Creatinine 5.80 H BUN/Creatinine Ratio 7.8 L Random Glucose 214 H Serum Osmolality Not Reportable Calcium 8.5 Total Bilirubin 0.5 AST 33 ALT 28 Alkaline Phosphatase 74 CK-MB (CK-2) 4.6 H* Troponin I 0.06 H B-Natriuretic Peptide 1860.0 H* Serum Total Protein 6 L Albumin 3.1 L Globulin 2.9 Albumin/Globulin Ratio 1.1 magnesium is a send out lab at this time due to laboratory difficulties. The patient has not been able to urinate yet. Departure - Departure Clinical Impression: Hyperchloremic metabolic acidosis, Chronic renal failure, stage 5, Hypertensive emergency Disposition: Transfer to Hospital Condition: Serious Referrals: PANFILO RIBERA MD [Primary Care Provider] - 1-2 Weeks Home Medications: Ambulatory Orders Amlodipine Besylate 10 mg PO DAILY 07/13/13 Clonidine HCl 0.1 mg PO DAILY 07/13/13 Enalapril Maleate 20 mg PO DAILY 07/13/13 Metoprolol Tartrate 100 mg PO DAILY 07/13/13 Insulin Aspart Protamine & Asp [Novolog Mix 70/30 (70-30) 100 Unit/ml] 20 unit SC DAILY 05/25/15 Potassium Chloride Tab [K-Dur] 20 meq PO DAILYBK #30 tab 06/23/16 Magnesium Oxide 800 mg PO BID 11/18/18 Diphenoxylate/Atropine [Lomotil Tab] 1 tab PO BID #20 tab 12/05/18 Ondansetron HCl [Zofran] 4 mg PO Q8HRS #8 ml 12/05/18 Transfer to Outside Facility - Transfer Information Accepting Provider:: dr menendez Accepting Facility: [facility] Reason for Transfer: required specialist not available
[2018-12-17] MEDS ORDERED: SODIUM CHLORIDE 0.45% IV PRN (11:05)
[2018-12-17] MEDS ORDERED: SODIUM BICARBONATE IV PRN (11:05)
[2018-12-17 11:13] VITALS: BP 153/73; TEMP 97.9
[2018-12-17 11:38] VITALS: O2SAT 99
== END 2018-12-17 11:32 | disposition short-term general hospital (02) ==
LOC: ER 07:57
DX: E87.2 Acidosis (principal); I16.1 Hypertensive emergency; N18.5 Chronic kidney disease, stage 5; E87.8 Other disorders of electrolyte and fluid balance, not elsewhere classified; I44.0 Atrioventricular block, first degree; J44.9 Chronic obstructive pulmonary disease, unspecified; I50.9 Heart failure, unspecified; I13.2 Hypertensive heart and chronic kidney disease with heart failure and with stage 5 chronic kidney disease, or end stage renal disease; E11.22 Type 2 diabetes mellitus with diabetic chronic kidney disease; Z79.4 Long term (current) use of insulin; Z79.899 Other long term (current) drug therapy; Z88.7 Allergy status to serum and vaccine
CPT/HCPCS: 36600; 80053; 82150; 82550; 82553; 82803; 82805; 83690; 83735; 83880; 84484; 85025; 93005; J7799

== ENCOUNTER → 2019-06-30 | Outpatient (CLI) | payer MEDICARE | LOC: GMAE 14:49 | PROVIDERS: ATTEND Family Medicine | DX: M11.831 Other specified crystal arthropathies, right wrist (principal) ==

== ENCOUNTER 2019-07-24 04:58 | Emergency (ER) | payer MEDICARE ==
[2019-07-24] MEDS ORDERED: SODIUM CHLORIDE 0.9% (FLUSH) 10 ML SYG IV PRN (05:30)
--- NOTE | 2019-07-24 05:34 | ED.PDOC ---
History of Present Illness - General Chief Complaint: Upper Extremity Injury Stated Complaint: left hand swelling Time Seen by Provider: 07/24/19 05:18 - History of Present Illness Initial Comments: 74 yo male with PMH of ESRD on HD TThS who presents with cc of left hand pain and swelling. Denies any recent injury or trauma. Reports left hand and distal forearm began having pain and swelling about 3 days ago and sx's have pr ogressively worsened, now reports constant 9/10 constant throbbing pain mostly to dorsal middle aspect left hand but radiates into all fingers and into distal left forearm, worse with palpation and movement, no meds tried at home for pain. Reports similar swelling and pain to right hand about 3 weeks ago and given a shot in ortho clinic with full relief and resolution and told he may have gout. Pt does have AV fistula LUE which was created 11/2018 and reports no issues since then. Last dialyzed 48 hours ago and scheduled for this morning but he cancelled due to hand pain. Denies redness/warmth, fevers, chills, weakness, numbness. Allergies/Adverse Reactions: Allergies Tetanus Toxoid Allergy (Verified 12/05/18 01:41) Swelling of extremities Home Medications: Ambulatory Orders Amlodipine Besylate 10 mg PO DAILY 07/13/13 Clonidine HCl 0.1 mg PO DAILY 07/13/13 Enalapril Maleate 20 mg PO DAILY 07/13/13 Metoprolol Tartrate 100 mg PO DAILY 07/13/13 Insulin Aspart Protamine & Asp [Novolog Mix 70/30 (70-30) 100 Unit/ml] 20 unit SC DAILY 05/25/15 Potassium Chloride Tab [K-Dur] 20 meq PO DAILYBK #30 tab 06/23/16 Magnesium Oxide 800 mg PO BID 11/18/18 Diphenoxylate/Atropine [Lomotil Tab] 1 tab PO BID #20 tab 12/05/18 Ondansetron HCl [Zofran] 4 mg PO Q8HRS #8 ml 12/05/18 Review of Systems - Review of Systems Review of Systems: 07/24/19 06:54 see HPI All other Systems: Reviewed and Negative Past Medical History (General) - Patient Medical History Hx Seizures: No Hx Stroke: No Hx Dementia: No Hx Asthma: Yes Hx of COPD: Yes Hx Cardiac Disorders: No Hx Congestive Heart Failure: No Hx Pacemaker: No Hx Hypertension: Yes Hx Thyroid Disease: No Hx Diabetes: Yes Hx Gastroesophageal Reflux: No Hx Renal Disease: Yes - on dialysis, shunt in upper left arm Hx Cancer: No Hx of HIV: No Hx Hepatitis C: No Hx MRSA: No MRSA Source:: Wound Surgical History: other - Vaccination History Hx Tetanus, Diphtheria Vaccination: No - allergic Hx Influenza Vaccination: No Hx Pneumococcal Vaccination: No - Social History Hx Tobacco Use: No Hx Chewing Tobacco Use: No Hx Alcohol Use: No Hx Substance Use: No Hx Substance Use Treatment: No Hx Depression: No Hx Physical Abuse: No Hx Emotional Abuse: No Hx Suspected Abuse: No - Female History Patient : No - Triage Comment ED Triage Comment: Reports left hand swelling x3 days. Pain to touch now. Pt is suppose to get dialysis today, but he feels too much pain in his left hand he didn't think he could tolerate it. Pt reports he cancelled his appointment for today. Pt reports he had same type of swelling to Rt hand few weeks ago, Dr. Mg gave him an injection to help it go away. Pt was told he has gout. Pt also has a small sore to top of mid left hand. Pt report tightness as sharp needle pricks. Family Medical History - Family History Father Family History: Unknown Living Status: Age at (years of age): 62 Cause of : "blood poisoning" Hx Family Asthma: No Hx Family Congestive Heart Failure: No Hx Family Hypertension: No Hx Family Stroke: No Hx Cardiac Disease: No Hx Family Diabetes: Yes - mom Hx Family Cancer: No Physical Exam - Physical Exam General Appearance: Alert, No apparent distress Eyes, Ears, Nose, Throat Exam: PERRL/EOMI, normal ENT inspection Neck: non-tender, full range of motion, supple, normal inspection Cardiovascular/Respiratory: regular rate, rhythm, no M/R/G, normal breath sounds, no respiratory distress, other - left UE AV fistula with good strong palpable thrill throughout Abdominal Exam: non-tender, no organomegaly Back Exam: normal inspection, no vertebral tenderness Shoulder Exam: normal inspection, non-tender Elbow/Forearm Exam: normal inspection, non-tender, no evidence of injury Wrist Exam: swelling - moderate left wrist swelling and moderat ttp throughout, moderately limited ROM due to pain, no noted deformities Hand Exam: limited ROM, swelling - left hand is markedly swollen throughout, appears slightly pale, no erythema/warmth, swelling extends into distal left forearm, markedly tender throughout left hand, digits, distal left forearm, markedly reduced ROM left hand and wrist due to pain and swelling Neuro/Tendon: sensory deficit - slightly decreased sensation to light touch throughout left hand Mental Status: alert, oriented x 3 Skin Exam: warm/dry, pallor - mild to left hand Progress - Progress Progress: 07/24/19 06:57 Left hand pain and swelling -concern for possible increased venous flow/pressure in left hand given AV fistula is on that side. Consider also frx vs gout vs other causes. -obtain labs and XR imaging left hand and wrist -AV fistula with good palpable thrill throughout 07/24/19 07:33 -XR imaging of L hand and wrist show no acute processes. BP moderately elevated 175/85 but vitals otherwise remain stable, treating pain and will reassess. Labwork reveals anemia (likely chronic), K 4.2, BUN 28, Cr 6.5 (due for dialysis today). Uric acid 5.6, otherwise labs pretty unremarkable from chronic. -Spoke with Dr. Chavez at [facility] ED who accepts pt for ED to ED transfer for left hand pain and swelling and concern for possible left AV fistula complication with need for urgent vascular surgery consultation 07/24/19 05:30 Sodium Chloride 0.9% (Flush) [Saline Flush Syringe] 10 ml IV PRN PRN 07/24/19 05:31 Telemetry .ONCE Laboratory Results - last 24 hr 07/24/19 07/24/19 06:20 06:20 WBC 8.3 RBC 2.99 L Hgb 10.0 L Hct 29.1 L MCV 97.4 H MCH 33.4 H MCHC 34.3 RDW 20.9 H Plt Count 203 MPV 8.7 Absolute Neuts (auto) 6.20 Absolute Lymphs (auto) 1.50 Absolute Monos (auto) 0.40 Absolute Eos (auto) 0.10 Absolute Basos (auto) 0.10 Neutrophils % 74.6 Lymphocytes % 17.9 L Monocytes % 5.1 Eosinophils % 1.6 Basophils % 0.8 Normal RBC Morphology 1+aniso Sodium 137 Potassium 4.2 Chloride 100 L Carbon Dioxide 21 Anion Gap 20.2 H BUN 28 H Creatinine 6.57 H* BUN/Creatinine Ratio 4.3 L Random Glucose 285 H Serum Osmolality 289.7 Uric Acid 5.6 Calcium 7.9 L Departure - Departure Clinical Impression: Left hand pain Complication of AV dialysis fistula Qualifiers: Encounter type: initial encounter Qualified Code(s): T82.9XXA - Unspecified complication of cardiac and vascular prosthetic device, implant and graft, initial encounter Time of Disposition: 07:33 Disposition: Transfer to Hospital Condition: Fair Departure Forms: ED Discharge - Pt. Copy, Patient Portal Self Enrollment Referrals: PANFILO RIBERA MD [Primary Care Provider] - 1-2 Weeks Home Medications: Ambulatory Orders Amlodipine Besylate 10 mg PO DAILY 07/13/13 Clonidine HCl 0.1 mg PO DAILY 07/13/13 Enalapril Maleate 20 mg PO DAILY 07/13/13 Metoprolol Tartrate 100 mg PO DAILY 07/13/13 Insulin Aspart Protamine & Asp [Novolog Mix 70/30 (70-30) 100 Unit/ml] 20 unit SC DAILY 05/25/15 Potassium Chloride Tab [K-Dur] 20 meq PO DAILYBK #30 tab 06/23/16 Magnesium Oxide 800 mg PO BID 11/18/18 Diphenoxylate/Atropine [Lomotil Tab] 1 tab PO BID #20 tab 12/05/18 Ondansetron HCl [Zofran] 4 mg PO Q8HRS #8 ml 12/05/18 Transfer to Outside Facility - Transfer Information Accepting Provider:: Dr. Chavez Accepting Facility: [facility] Reason for Transfer: required specialist not available - need for urgent vascular surgery consultation
--- NOTE | 2019-07-24 06:25 | RAD ---
LEFT HAND, THREE VIEWS, XR. 07/24/2019 6:21 AM CDT CLINICAL HISTORY: acute nontraumatic left hand pain and swelling COMPARISON: None. TECHNIQUE: PA, lateral, and oblique views of the left hand. FINDINGS: There is generalized soft tissue edema throughout the left hand and wrist. There is no acute fracture. No bony malalignment. Joint spaces are maintained. There is diffuse generalized decreased bone density. Vascular calcifications are present within the left wrist and hand. No subcutaneous emphysema or foreign body. There is juxta-articular bony hypertrophy along the first metacarpal joint. Ossified densities in the radiocarpal joint and ulnocarpal joint compatible with calcium pyrophosphate deposition disease. IMPRESSION: 1. Generalized left hand soft tissue edema. No acute bony finding. 2. Mild osteoarthritis and osteopenia. 3. Calcium pyrophosphate deposition disease. Electronically signed by: Iza Kim DO 07/24/2019 6:23 AM CDT
--- NOTE | 2019-07-24 06:27 | RAD ---
CLINICAL HISTORY: acute nontraumatic left wrist pain and swelling COMPARISON: None. TECHNIQUE: XR WRIST 3 OR MORE VIEWS 07/24/2019 5:32 AM CDT FINDINGS: There is no fracture. Joint spaces are preserved. Soft tissues are unremarkable. IMPRESSION: No acute osseous findings. Electronically signed by: Laci Boothe MD 07/24/2019 6:25 AM CDT
[2019-07-24] MEDS ORDERED: fentaNYL CITRATE INJ 50 MCG/ML AMP IV ONE (07:08)
[2019-07-24 08:04] VITALS: BP 182/85; TEMP 97.5; O2SAT 97
== END 2019-07-24 08:03 | disposition short-term general hospital (02) ==
LOC: ER 04:58
DX: M79.642 Pain in left hand (principal); T82.9XXA Unspecified complication of cardiac and vascular prosthetic device, implant and graft, initial encounter; J44.9 Chronic obstructive pulmonary disease, unspecified; N18.6 End stage renal disease; E11.22 Type 2 diabetes mellitus with diabetic chronic kidney disease; I12.0 Hypertensive chronic kidney disease with stage 5 chronic kidney disease or end stage renal disease; Z99.2 Dependence on renal dialysis; Z79.4 Long term (current) use of insulin; Z79.899 Other long term (current) drug therapy; Z88.7 Allergy status to serum and vaccine
CPT/HCPCS: 36415; 73110; 73130; 80048; 84550; 85025; J3010

== ENCOUNTER → 2019-08-02 | Outpatient (CLI) | payer MEDICARE | LOC: GMAE 14:16 | PROVIDERS: ATTEND Family Medicine | DX: M25.531 Pain in right wrist (principal) ==

== ENCOUNTER 2019-08-11 05:38 | Day surgery (SDC) | payer MEDICARE ==
--- NOTE | 2019-08-10 14:58 | HP ---
CHIEF COMPLAINT: Left hand pain and numbness. HISTORY OF PRESENT ILLNESS: Tae is a 74-year-old male with a history of pain and numbness in the hand and wrist. He said he has had this going on for several weeks. He has a history of gout. He also has numbness that seems to be in the distribution of the median nerve. He has locking and popping of the third finger as his additional symptoms. He says that is going on on a daily basis and is at about a 6 to 7. He says it does get higher than that at times. 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 The pain is sharp, but also aching. He has not gotten any relief with oral anti-inflammatories. He has been very careful secondary to renal dysfunction. 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 We have talked about options for him and because of his failure of more conservative measures, he has elected to undergo surgical intervention. He has elected to undergo carpal tunnel release, trigger finger release and intraarticular injection of the wrist. PAST SURGICAL HISTORY: None. MEDICATIONS: 1. Metoprolol. 2. Humulin. 3. Enalapril. 4. Catapres. 5. Norvasc. 6. Insulin. ALLERGIES: AZULFIDINE. CODE STATUS: Full code. IMMUNIZATIONS: Up to date. SOCIAL HISTORY: The patient does not drink, smoke or use any illicit drugs. FAMILY HISTORY: None pertinent to today's complaint. REVIEW OF SYSTEMS: Negative except as indicated in the History of Present Illness. HEENT: The patient reports no symptoms. RESPIRATORY: The patient reports no symptoms. CARDIOVASCULAR: The patient reports no symptoms. GASTROINTESTINAL: The patient reports no symptoms GENITOURINARY: The patient reports no symptoms. MUSCULOSKELETAL: Negative except as noted in History of Present Illness. SKIN: The patient reports no symptoms. NEUROLOGIC: The patient reports no symptoms. PHYSICAL EXAMINATION: VITAL SIGNS: Blood pressure 186/98. Pulse 80. Height 6'. Weight 185 pounds. MENTAL STATUS: The patient is awake, alert, and is able to give a good history and participate in the physical. The patient is oriented to person, place and time. SKIN: Normal tone and turgor. MUSCULOSKELETAL: He has a positive Tinel's and positive carpal compression test on the left. He has palpable clicking and locking on the third digit. Otherwise, he does maintain full range of motion of all digits. The hand is warm and well perfused. There is no deformity, no malalignment and no crepitus with range of motion. He has severe pain with deep palpation of the wrist. He has pain with range of motion of the wrist. He has a slight effusion present in the wrist. The elbow and shoulder show full range of motion. There is no crepitus or pain with range of motion of the elbow or shoulder. RADIOLOGY: My interpretation of the x-rays show arthritis, but otherwise no acute bony abnormality. ASSESSMENT: 1. Carpal tunnel syndrome. 2. Gout. 3. Trigger finger. PLAN: We have discussed the risks, benefits, and alternatives for treatment of this. After discussing the risks, benefits and alternatives to treatment, he has given informed consent for carpal tunnel release, trigger finger release and intraarticular injection. [facility][id number] [facility]
[2019-08-11] MEDS ORDERED: SODIUM CHL 0.9% 100ML MINI-BAG 100 ML IVPB ONE (06:14)
[2019-08-11] MEDS ORDERED: ceFAZolin SODIUM 1 GM VIAL ONE (06:14)
[2019-08-11] MEDS ORDERED: LACTATED RINGERS 1,000 ML ONE (06:14)
[2019-08-11] MEDS ORDERED: LIDOCAINE 1% 10 ML VIAL INJ ONE ×2 (07:36→10:00)
[2019-08-11] MEDS ORDERED: BUPIVACAINE 0.25% INJ 30 ML VIAL INJ ONE (07:36)
[2019-08-11] MEDS ORDERED: LACTATED RINGERS 1,000 ML IVS ONE (08:43)
[2019-08-11] MEDS ORDERED: fentaNYL CITRATE INJ 50 MCG/ML AMP ONE (09:11)
[2019-08-11] MEDS ORDERED: methylPREDNISolone ACETATE 80 MG/ML VIAL ONE (09:15)
[2019-08-11] MEDS: VANCOMYCIN HCL INJ 1,000 MG VIAL IVPB ONE ×2 (09:39→10:05)
[2019-08-11] MEDS: ceFAZolin SODIUM 1 GM VIAL ONE ×2 (09:39→10:05)
[2019-08-11] MEDS ORDERED: PROPOFOL 200 MG/20 ML VIAL IV ONE (10:00)
--- NOTE | 2019-08-11 10:51 | OP ---
DATE OF PROCEDURE: 08/11/19 PREOPERATIVE DIAGNOSIS: 1. Left hand carpal tunnel syndrome. 2. Left wrist gout. 3. Left third finger triggering. POSTOPERATIVE DIAGNOSIS: 1. Left hand carpal tunnel syndrome. 2. Left wrist gout. 3. Left third finger triggering. PROCEDURE: 1. Carpal tunnel release. 2. Trigger finger release. 3. Injection of left wrist. SURGEON: Samuel Mg MD. ITEM REPAIR MANAGER: Emery Powell CST, SA-C. ANESTHESIA: Local with sedation. COMPLICATIONS: None. FINDINGS: 1. Narrowing of the median nerve across the carpal tunnel. 2. Triggering at the A1 marcell of the third digit. 3. Swelling of the wrist and pain consistent with gout. INDICATION: Mr. Carreon has a history of pain in the wrist associated with numbness and tingling. He has also had triggering and locking at the A1 marcell of the third digit. Because of his symptoms and dysfunction in daily living, he has requested operative intervention. After discussing the risks, benefits and alternatives to operative therapy, the patient has given informed consent. PROCEDURE: The patient was brought to the Operating Room and placed in the supine position. Sedation was administered and local anesthetic was injected into the operative area under sterile conditions. After the injection of anesthetic, the arm was sterilely prepped and draped. A longitudinal incision was made directly overlying the transverse carpal ligament and blunt dissection was carried down to the ligament. The transverse carpal ligament was sharply transected along its length and a Darby elevator was used to ensure complete release of the ligament. Once release had been confirmed, the wound was thoroughly irrigated and the wound was closed with Nylon suture. Attention was then focused on the third digit. A transverse incision was made directly overlying the A1 marcell. Blunt dissection was carried down to the A1 marcell which was sharply incised along its entire length. A Darby elevator was passed both proximally and distally to ensure complete release. Following the release, the wound was irrigated. It was closed with Nylon suture. Attention was then focused on the wrist where under sterile conditions, a combination of lidocaine and Depo-Medrol were injected directly into the wrist through a dorsal portal. Sterile dressings were placed and the patient was taken to the Day Surgery Unit. POSTOPERATIVE PLAN: The patient has been encouraged to do range of motion of the digits and will followup with us in approximately two days. [id number] [facility]
[2019-08-11 11:23] VITALS: BP 185/83; TEMP 97.1; O2SAT 97
== END 2019-08-11 11:20 | disposition home or self-care (01) ==
LOC: AMB 05:38
PROVIDERS: ATTEND Orthopaedic Surgery
DX: G56.02 Carpal tunnel syndrome, left upper limb (principal); M10.032 Idiopathic gout, left wrist; M65.332 Trigger finger, left middle finger; I12.9 Hypertensive chronic kidney disease with stage 1 through stage 4 chronic kidney disease, or unspecified chronic kidney disease; E11.22 Type 2 diabetes mellitus with diabetic chronic kidney disease; N18.9 Chronic kidney disease, unspecified; Z88.8 Allergy status to other drugs, medicaments and biological substances; Z79.4 Long term (current) use of insulin; Z79.899 Other long term (current) drug therapy
CPT/HCPCS: 01810; 20605; 26055; 36415; 36416; 64721; 80307; 82948; 87070; J0690; J1030; J3010; J3370; J3490; J7050; J7120

== ENCOUNTER 2019-09-22 14:04 | Emergency (ER) | payer MEDICARE ==
[2019-09-22] MEDS ORDERED: DEXAMETHASONE INJ 10 MG/ML VIAL IM ONE (14:12)
[2019-09-22] MEDS ORDERED: HYDROcodone 10MG/APAP 325MG 1 EA TAB PO ONE (14:12)
--- NOTE | 2019-09-22 14:16 | ED.PDOC ---
History of Present Illness - General Time Seen by Provider: 09/22/19 14:07 Source: patient, RN notes reviewed, Vital Signs reviewed Exam Limitations: no limitations - History of Present Illness Initial Comments: pt presents to ED for left hand pain. States he had left carpal tunnel surgery and left 3rd digit trigger finger surgery by Dr. Mg 2 months ago. States he awoke this morning with pain to left palm and MCP area of left 3rd digit. Denies any trauma or injury. Denies fever, redness, swelling to the area. Has taken Aleve with some relief today. Allergies/Adverse Reactions: Allergies Tetanus Toxoid Allergy (Verified 08/09/19 11:14) Swelling of extremities Home Medications: Ambulatory Orders Amlodipine Besylate 5 mg PO DAILY 07/13/13 Clonidine HCl 0.1 mg PO DAILY 07/13/13 Metoprolol Tartrate 50 mg PO DAILY 07/13/13 Insulin Aspart Protamine & Asp [Novolog Mix 70/30 (70-30) 100 Unit/ml] 20 unit SC DAILY 05/25/15 B-Complex W/ C & Folic Acid [Renal-Caitlyn 0.8 mg] 1 tab PO DAILY 08/09/19 Calcium Acetate (Phosphate Bin [Calcium Acetate] 667 mg PO TID 08/09/19 Enalapril Maleate [Vasotec] 20 mg PO DAILY 08/09/19 hydrALAZINE HCl [(None)] 25 mg PO DAILY 08/09/19 predniSONE 40 mg PO DAILY 08/09/19 Methylprednisolone [Medrol Dose Mayur] 4 mg PO DAILY 6 Days #21 tab 09/22/19 Review of Systems - Review of Systems Constitutional: Denies: chills, fever, weakness EENTM: Denies: throat pain Respiratory: Denies: cough, short of breath Cardiology: Denies: chest pain, palpitations, syncope Gastrointestinal/Abdominal: Denies: abdominal pain, nausea, vomiting Musculoskeletal: States: other - left hand pain. Denies: back pain All other Systems: Reviewed and Negative Past Medical History (General) - Patient Medical History Hx Seizures: No Hx Stroke: No Hx Dementia: No Hx Asthma: Yes Hx of COPD: Yes Hx Cardiac Disorders: No Hx Congestive Heart Failure: No Hx Pacemaker: No Hx Hypertension: Yes Hx Thyroid Disease: No Hx Diabetes: Yes Hx Gastroesophageal Reflux: No Hx Renal Disease: Yes - on dialysis, shunt in upper left arm Hx Cancer: No Hx of HIV: No Hx Hepatitis C: No Hx MRSA: No MRSA Source:: Wound - Vaccination History Hx Tetanus, Diphtheria Vaccination: No - allergic Hx Influenza Vaccination: No Hx Pneumococcal Vaccination: No - Social History Hx Tobacco Use: No Hx Chewing Tobacco Use: No Hx Alcohol Use: No Hx Substance Use: No Hx Substance Use Treatment: No Hx Depression: No Hx Physical Abuse: No Hx Emotional Abuse: No Hx Suspected Abuse: No - Female History Patient : No Family Medical History - Family History Father Family History: Unknown Living Status: Age at (years of age): 64 Cause of : "blood poisoning" Hx Family Asthma: No Hx Family Congestive Heart Failure: No Hx Family Hypertension: No Hx Family Stroke: No Hx Cardiac Disease: No Hx Family Diabetes: Yes - mom Hx Family Cancer: No Physical Exam - Physical Exam General Appearance: Alert, Comfortable, No apparent distress Neck: non-tender, full range of motion, supple Cardiovascular/Respiratory: regular rate, rhythm, normal peripheral pulses, normal breath sounds, no respiratory distress Abdominal Exam: non-tender Back Exam: normal inspection, no vertebral tenderness Shoulder Exam: normal inspection, non-tender, no evidence of injury, normal ROM Elbow/Forearm Exam: normal inspection, non-tender, no evidence of injury, normal ROM Mental Status: alert Comments: Pt has tenderness to left anterior palm and 3rd MCP area. There is no erythema, edema. No ecchymosis or skin changes. He has FROM with pain upon flexion of 3rd digit. Cap refill is < 2 seconds and has 2+ radial pulse. Progress - Progress Progress: 09/22/19 14:31 No recent injury. No sign of cellulitis on exam. Will use his wrist splint at home and treat with short course of steroids. He will f/u with Dr. mg in 1-2 days for recheck. srp given. Departure - Departure Clinical Impression: Hand pain, left Time of Disposition: 14:33 Disposition: Discharge to Home or Self Care Condition: Good Instructions: Carpal Tunnel Syndrome (DC) Diet: resume usual diet Referrals: PANFILO RIBERA MD [Primary Care Provider] - 1-2 Weeks Prescriptions: Methylprednisolone [Medrol Dose Mayur] 4 mg PO DAILY 6 Days #21 tab Home Medications: Ambulatory Orders Amlodipine Besylate 5 mg PO DAILY 08/27/13 Clonidine HCl 0.1 mg PO DAILY 07/13/13 Metoprolol Tartrate 50 mg PO DAILY 07/13/13 Insulin Aspart Protamine & Asp [Novolog Mix 70/30 (70-30) 100 Unit/ml] 20 unit SC DAILY 05/25/15 B-Complex W/ C & Folic Acid [Renal-Caitlyn 0.8 mg] 1 tab PO DAILY 08/09/19 Calcium Acetate (Phosphate Bin [Calcium Acetate] 667 mg PO TID 08/09/19 Enalapril Maleate [Vasotec] 20 mg PO DAILY 08/09/19 hydrALAZINE HCl [(None)] 25 mg PO DAILY 08/09/19 predniSONE 40 mg PO DAILY 08/09/19 Methylprednisolone [Medrol Dose Mayur] 4 mg PO DAILY 6 Days #21 tab 09/22/19 Additional Instructions: Use wrist splint for 1 week. Follow up with Dr. Mg within 1 week for recheck.
[2019-09-22 14:20] VITALS: BP 158/85; TEMP 98.6; O2SAT 100
== END 2019-09-22 14:49 | disposition home or self-care (01) ==
LOC: ER 14:04
DX: M79.642 Pain in left hand (principal); J44.9 Chronic obstructive pulmonary disease, unspecified; I12.0 Hypertensive chronic kidney disease with stage 5 chronic kidney disease or end stage renal disease; E11.22 Type 2 diabetes mellitus with diabetic chronic kidney disease; N18.6 End stage renal disease; Z98.890 Other specified postprocedural states; Z99.2 Dependence on renal dialysis; Z79.4 Long term (current) use of insulin; Z79.899 Other long term (current) drug therapy

== ENCOUNTER 2019-10-03 10:29 | Emergency (ER) | payer MEDICARE ==
--- NOTE | 2019-10-03 11:01 | ED.PDOC ---
History of Present Illness - General Chief Complaint: General Stated Complaint: left hand pain,swelling Time Seen by Provider: 10/03/19 10:56 - History of Present Illness Initial Comments: c/o L hand pain and swelling since 1 day , no trauma , had the similar swelling and pain few months back , had surgery for CTS and trigger finger 3 months back . No fever or chills Timing/Duration: getting worse Severity: moderate Improving Factors: nothing Worsening Factors: nothing Associated Symptoms: denies symptoms Allergies/Adverse Reactions: Allergies Tetanus Toxoid Allergy (Verified 08/09/19 11:14) Swelling of extremities Home Medications: Ambulatory Orders Amlodipine Besylate 5 mg PO DAILY 07/13/13 Clonidine HCl 0.1 mg PO DAILY 07/13/13 Metoprolol Tartrate 50 mg PO DAILY 07/13/13 Insulin Aspart Protamine & Asp [Novolog Mix 70/30 (70-30) 100 Unit/ml] 20 unit SC DAILY 05/25/15 B-Complex W/ C & Folic Acid [Renal-Caitlyn 0.8 mg] 1 tab PO DAILY 08/09/19 Calcium Acetate (Phosphate Bin [Calcium Acetate] 667 mg PO TID 08/09/19 Enalapril Maleate [Vasotec] 20 mg PO DAILY 08/09/19 hydrALAZINE HCl [(None)] 25 mg PO DAILY 08/09/19 predniSONE 40 mg PO DAILY 08/09/19 Methylprednisolone [Medrol Dose Mayur] 4 mg PO DAILY 6 Days #21 tab 09/22/19 Cephalexin Monohydrate [Keflex] 500 mg PO TID #40 cap 10/03/19 Prednisone 50 mg PO ONCE #5 tab 10/03/19 Review of Systems - Review of Systems Constitutional: States: no symptoms reported EENTM: States: no symptoms reported Respiratory: States: no symptoms reported Cardiology: States: no symptoms reported Gastrointestinal/Abdominal: States: no symptoms reported Genitourinary: States: no symptoms reported Musculoskeletal: States: see HPI Skin: States: no symptoms reported Neurological: States: no symptoms reported Endocrine: States: no symptoms reported Hematologic/Lymphatic: States: no symptoms reported All other Systems: Reviewed and Negative Past Medical History (General) - Patient Medical History Hx Seizures: No Hx Stroke: No Hx Dementia: No Hx Asthma: Yes Hx of COPD: Yes Hx Cardiac Disorders: No Hx Congestive Heart Failure: No Hx Pacemaker: No Hx Hypertension: Yes Hx Thyroid Disease: No Hx Diabetes: Yes Hx Gastroesophageal Reflux: No Hx Renal Disease: Yes - on dialysis, shunt in upper left arm Hx Cancer: No Hx of HIV: No Hx Hepatitis C: No Hx MRSA: No MRSA Source:: Wound Surgical History: appendectomy - Vaccination History Hx Tetanus, Diphtheria Vaccination: No - allergic Hx Influenza Vaccination: No Hx Pneumococcal Vaccination: No - Social History Hx Tobacco Use: Yes Hx Chewing Tobacco Use: No Hx Alcohol Use: No Hx Substance Use: No Hx Substance Use Treatment: No Hx Depression: No Hx Physical Abuse: No Hx Emotional Abuse: No Hx Suspected Abuse: No - Female History Patient : No Family Medical History - Family History Father Family History: Unknown Living Status: Age at (years of age): 62 Cause of : "blood poisoning" Hx Family Asthma: No Hx Family Congestive Heart Failure: No Hx Family Hypertension: No Hx Family Stroke: No Hx Cardiac Disease: No Hx Family Diabetes: Yes - mom Hx Family Cancer: No Physical Exam - Physical Exam General Appearance: Alert, Comfortable Eye Exam: bilateral normal Ears, Nose, Throat: hearing grossly normal Neck: non-tender, full range of motion, supple, normal inspection Back Exam: normal inspection Extremity: other - swelling , tenderness in L hand with decrease range of motion Skin Exam: normal color Lymphatic: no adenopathy Departure - Departure Clinical Impression: Hand pain, left, Hand swelling Time of Disposition: 12:35 Disposition: Discharge to Home or Self Care Condition: Good Departure Forms: ED Discharge - Pt. Copy, Patient Portal Self Enrollment Diet: resume usual diet Activity: increase activity as tolerated, walking as tolerated Referrals: PANFILO RIBERA MD [Primary Care Provider] - 1-2 Weeks Prescriptions: Cephalexin Monohydrate [Keflex] 500 mg PO TID #40 cap Prednisone 50 mg PO ONCE #5 tab Home Medications: Ambulatory Orders Amlodipine Besylate 5 mg PO DAILY 07/13/13 Clonidine HCl 0.1 mg PO DAILY 07/13/13 Metoprolol Tartrate 50 mg PO DAILY 07/13/13 Insulin Aspart Protamine & Asp [Novolog Mix 70/30 (70-30) 100 Unit/ml] 20 unit SC DAILY 05/25/15 B-Complex W/ C & Folic Acid [Renal-Caitlyn 0.8 mg] 1 tab PO DAILY 08/09/19 Calcium Acetate (Phosphate Bin [Calcium Acetate] 667 mg PO TID 08/09/19 Enalapril Maleate [Vasotec] 20 mg PO DAILY 08/09/19 hydrALAZINE HCl [(None)] 25 mg PO DAILY 08/09/19 predniSONE 40 mg PO DAILY 08/09/19 Methylprednisolone [Medrol Dose Mayur] 4 mg PO DAILY 6 Days #21 tab 09/22/19 Cephalexin Monohydrate [Keflex] 500 mg PO TID #40 cap 10/03/19 Prednisone 50 mg PO ONCE #5 tab 10/03/19
[2019-10-03] MEDS ORDERED: methylPREDNISolone SODIUM SUC 125 MG/2 ML VIAL IM ONE (11:10)
[2019-10-03 11:13] VITALS: O2SAT 100
[2019-10-03] MEDS ORDERED: cefTRIAXone SODIUM 1 GM VIAL IM ONE (11:13)
[2019-10-03] MEDS ORDERED: LIDOCAINE 1% 10 ML VIAL INJ ONE (11:14)
--- NOTE | 2019-10-03 12:32 | RAD ---
EXAM: XR Left Hand Complete, 3 or More Views CLINICAL HISTORY: pain and swelling TECHNIQUE: Frontal, lateral and oblique views of the left hand. COMPARISON: No relevant prior studies available. FINDINGS: Limitations: None. Bones/joints: Unremarkable. No acute fracture. No dislocation. Soft tissues: Dorsal soft tissue swelling present. No soft tissue gas collection. No radiopaque foreign body. Vasculature: Atherosclerotic calcification present. There is mild ankylosis of the joints. IMPRESSION: There is soft tissue swelling without acute bony abnormality. Electronically signed by: Lisseth Jason MD 10/03/2019 12:31 PM [facility]
[2019-10-03 12:49] VITALS: BP 169/86; TEMP 97.6
== END 2019-10-03 12:48 | disposition home or self-care (01) ==
LOC: ER 10:29
DX: M79.642 Pain in left hand (principal); M79.89 Other specified soft tissue disorders; J44.9 Chronic obstructive pulmonary disease, unspecified; I12.0 Hypertensive chronic kidney disease with stage 5 chronic kidney disease or end stage renal disease; E11.22 Type 2 diabetes mellitus with diabetic chronic kidney disease; N18.6 End stage renal disease; Z99.2 Dependence on renal dialysis; Z87.891 Personal history of nicotine dependence; Z79.4 Long term (current) use of insulin; Z88.7 Allergy status to serum and vaccine; Z98.890 Other specified postprocedural states
CPT/HCPCS: 73130; J0696; J2930

== ENCOUNTER 2019-10-11 20:32 | Emergency (ER) | payer MEDICARE ==
[2019-10-11 20:51] VITALS: O2SAT 97
[2019-10-11] MEDS ORDERED: DEXAMETHASONE INJ 10 MG/ML VIAL IM ONE (20:57)
--- NOTE | 2019-10-11 21:07 | ED.PDOC ---
History of Present Illness - General Chief Complaint: Upper Extremity Injury Stated Complaint: left hand swollen Time Seen by Provider: 10/11/19 20:41 Source: patient, RN notes reviewed, Vital Signs reviewed, old records Exam Limitations: no limitations Additional Information: this is a 74-year-old gentleman who presents today with left hand pain. This is his fourth visit this year for the same thing. In July of this year he had a carpal tunnel surgery performed by Dr. nogueira. He followed up in the emergency room on 09/22/19 and received steroids and splinting. He was seen once again on 1116 and given Keflex and prednisone and had x-rays performed for second time that did not reveal any thing other than edema. With Dr. nogueira since having the surgery. Has end stage renal disease and receives hemodialysis on Fridays. He had dialysis today. He has no history of gout. AVF left upper extremity and therefore was transferred on his first visit to [facility] for further evaluation. He states that they let him go home the next day after a negative study. Paresthesias into the region of the median nerve of the left hand. He states that it hurts on the volar surface of his wrist as well. He has no erythema present. He feels like the left hand is a bit swollen. He has not had any fever or redness develop either. - History of Present Illness Allergies/Adverse Reactions: Allergies Tetanus Toxoid Allergy (Verified 08/09/19 11:14) Swelling of extremities Home Medications: Ambulatory Orders Amlodipine Besylate 5 mg PO DAILY 07/13/13 Clonidine HCl 0.1 mg PO DAILY 07/13/13 Metoprolol Tartrate 50 mg PO DAILY 07/13/13 Insulin Aspart Protamine & Asp [Novolog Mix 70/30 (70-30) 100 Unit/ml] 20 unit SC DAILY 05/25/15 B-Complex W/ C & Folic Acid [Renal-Caitlyn 0.8 mg] 1 tab PO DAILY 08/09/19 Calcium Acetate (Phosphate Bin [Calcium Acetate] 667 mg PO TID 08/09/19 Enalapril Maleate [Vasotec] 20 mg PO DAILY 08/09/19 hydrALAZINE HCl [(None)] 25 mg PO DAILY 08/09/19 predniSONE 40 mg PO DAILY 08/09/19 Methylprednisolone [Medrol Dose Mayur] 4 mg PO DAILY 6 Days #21 tab 11/06/19 Cephalexin Monohydrate [Keflex] 500 mg PO TID #40 cap 10/03/19 Prednisone 50 mg PO ONCE #5 tab 10/03/19 Prednisone 10 mg PO DAILY #1 mayur 10/11/19 Review of Systems - Review of Systems Constitutional: States: no symptoms reported. Denies: chills, fever Musculoskeletal: States: other - pain involving the left hand and wrist with tingling sensations into the first second and third digits Skin: States: no symptoms reported. Denies: change in color, lesions, rash Neurological: States: numbness, paresthesia, other - involving the first second and third digits Endocrine: States: other - patient with end-stage renal disease and on hemodi alysis Hematologic/Lymphatic: States: no symptoms reported Past Medical History (General) - Patient Medical History Hx Seizures: No Hx Stroke: No Hx Dementia: No Hx Asthma: No Hx of COPD: No Hx Cardiac Disorders: No Hx Congestive Heart Failure: No Hx Pacemaker: No Hx Hypertension: Yes Hx Thyroid Disease: No Hx Diabetes: Yes - IDDM Hx Gastroesophageal Reflux: No Hx Renal Disease: Yes - on dialysis, shunt in upper left arm Hx Cancer: No Hx of HIV: No Hx Hepatitis C: No Hx MRSA: No MRSA Source:: Wound - Vaccination History Hx Tetanus, Diphtheria Vaccination: No - ALLERGIC Hx Influenza Vaccination: Yes Hx Pneumococcal Vaccination: Yes Immunizations Up to Date: Yes - Social History Hx Tobacco Use: Yes Hx Chewing Tobacco Use: No Hx Alcohol Use: No Hx Substance Use: No Hx Substance Use Treatment: No Hx Depression: No Feels Threatened In Home Enviroment: No Feels Threatened In a Relationship: No Hx Physical Abuse: No Hx Emotional Abuse: No Hx Suspected Abuse: No - Activities of Daily Living Hospice Agency (if applicable):: None - Female History Patient is a Female of Child Bearing Age (10 -59 yrs old): No Patient : No Family Medical History - Family History Father Family History: Unknown Living Status: Age at (years of age): 64 Cause of : "blood poisoning" Hx Family Asthma: No Hx Family Congestive Heart Failure: No Hx Family Hypertension: No Hx Family Stroke: No Hx Cardiac Disease: No Hx Family Diabetes: Yes - mom Hx Family Cancer: No Physical Exam - Physical Exam General Appearance: Alert, No apparent distress Cardiovascular/Respiratory: regular rate, rhythm, normal peripheral pulses, no JVD, normal breath sounds, no respiratory distress Wrist Exam: soft tissue tenderness - noted at the volar surface of the wrist. There is limited flexion due to the amount of discomfort. Hand Exam: swelling - noted in the digits, no evidence of erythema, patient has full range of motion but has some discomfort with flexion, positive Tinel's sign Neuro/Tendon: normal sensation, normal motor functions, normal tendon functions Mental Status: alert, oriented x 3 Skin Exam: normal color, warm/dry Comments: palpable thrill involving the AV fistula in the left antecubital region Progress - Progress Progress: 10/11/19 21:38 MDM: Patient is had multiple visits secondary to the same problem. He had carpal tunnel surgery performed back in July of this year. He still has symptoms of carpal tunnel syndrome. He has no evidence of cellulitis. He has had 2 negative x-rays and thus far in the recent past. He has not had any fever with this condition. He has never followed up with Dr. nogueira following the surgery. He has been admonished to do so 10/11/19 21:40 patient states the only relief he ever gets is whenever he is on the prednisone. Does not feel that splinting helps. Departure - Departure Clinical Impression: Carpal tunnel syndrome of left wrist, Pain in left hand Time of Disposition: 21:40 Disposition: Discharge to Home or Self Care Condition: Good Departure Forms: ED Discharge - Pt. Copy, Patient Portal Self Enrollment Instructions: DI for Hand Pain Referrals: PANFILO RIBERA MD [Primary Care Provider] - 1-2 Weeks Prescriptions: Prednisone 10 mg PO DAILY #1 [facility] Home Medications: Ambulatory Orders Amlodipine Besylate 5 mg PO DAILY 07/13/13 Clonidine HCl 0.1 mg PO DAILY 07/13/13 Metoprolol Tartrate 50 mg PO DAILY 07/13/13 Insulin Aspart Protamine & Asp [Novolog Mix 70/30 (70-30) 100 Unit/ml] 20 unit SC DAILY 05/25/15 B-Complex W/ C & Folic Acid [Renal-Caitlyn 0.8 mg] 1 tab PO DAILY 08/09/19 Calcium Acetate (Phosphate Bin [Calcium Acetate] 667 mg PO TID 08/09/19 Enalapril Maleate [Vasotec] 20 mg PO DAILY 08/09/19 hydrALAZINE HCl [(None)] 25 mg PO DAILY 08/09/19 predniSONE 40 mg PO DAILY 08/09/19 Methylprednisolone [Medrol Dose Mayur] 4 mg PO DAILY 6 Days #21 tab 09/22/19 Cephalexin Monohydrate [Keflex] 500 mg PO TID #40 cap 10/03/19 Prednisone 50 mg PO ONCE #5 tab 10/03/19 Prednisone 10 mg PO DAILY #1 mayur 10/11/19 Additional Instructions: must follow-up with Dr. nogueira. Complete medications as prescribed. Return to ER if needed. Follow-up with PCP.
[2019-10-11 22:04] VITALS: BP 168/80; TEMP 98.2
== END 2019-10-11 21:50 | disposition home or self-care (01) ==
LOC: ER 20:32
DX: G56.02 Carpal tunnel syndrome, left upper limb (principal); E11.22 Type 2 diabetes mellitus with diabetic chronic kidney disease; N18.6 End stage renal disease; I12.0 Hypertensive chronic kidney disease with stage 5 chronic kidney disease or end stage renal disease; Z98.890 Other specified postprocedural states; Z88.7 Allergy status to serum and vaccine; Z99.2 Dependence on renal dialysis; Z79.899 Other long term (current) drug therapy; Z87.891 Personal history of nicotine dependence; Z79.4 Long term (current) use of insulin

== ENCOUNTER 2019-11-01 11:49 | Emergency (ER) | payer MEDICARE ==
[2019-11-01] MEDS ORDERED: SODIUM CHLORIDE 0.9% (FLUSH) 10 ML SYG IV PRN (11:54)
--- NOTE | 2019-11-01 11:56 | ED.PDOC ---
History of Present Illness - General Time Seen by Provider: 11/01/19 11:53 Source: patient - History of Present Illness Initial Comments: 74 yo male with PMH of ESRD on HD TThS, HTN, CAD, DM2 who presents with cc of nausea. Onset around 5:30 am today when he woke up, reports constant 10/10 severity, denies any aggravating/alleviating factors, nothing tried for relief. He ate some sausage and a biscuit at 8 pm without worsening. Denies any emesis. Reports hx of chronic diarrhea due to bowel obstruction s/p hemicolectomy in 1978, last BM was 3 hours ago and loose/watery as usual for him. Last dialysis was 2 days ago. Denies any swelling/edema, chest pain, dyspnea, abd pain, urinary sx's, fevers, chills, cough, sore throat. No known recent sick contacts. Allergies/Adverse Reactions: Allergies Tetanus Toxoid Allergy (Verified 08/09/19 11:14) Swelling of extremities Home Medications: Ambulatory Orders Amlodipine Besylate 5 mg PO DAILY 07/13/13 Clonidine HCl 0.1 mg PO DAILY 07/13/13 Metoprolol Tartrate 50 mg PO DAILY 07/13/13 Insulin Aspart Protamine & Asp [Novolog Mix 70/30 (70-30) 100 Unit/ml] 20 unit SC DAILY 05/25/15 B-Complex W/ C & Folic Acid [Renal-Caitlyn 0.8 mg] 1 tab PO DAILY 08/09/19 Calcium Acetate (Phosphate Bin [Calcium Acetate] 667 mg PO TID 08/09/19 Enalapril Maleate [Vasotec] 20 mg PO DAILY 08/09/19 hydrALAZINE HCl [(None)] 25 mg PO DAILY 08/09/19 predniSONE 40 mg PO DAILY 08/09/19 Methylprednisolone [Medrol Dose Mayur] 4 mg PO DAILY 6 Days #21 tab 09/22/19 Cephalexin Monohydrate [Keflex] 500 mg PO TID #40 cap 10/03/19 Prednisone 50 mg PO ONCE #5 tab 10/03/19 Prednisone 10 mg PO DAILY #1 mayur 10/11/19 Review of Systems - Review of Systems Review of Systems: 11/01/19 12:08 as per HPI All other Systems: Reviewed and Negative Past Medical History (General) - Patient Medical History Hx Seizures: No Hx Stroke: No Hx Dementia: No Hx Asthma: No Hx of COPD: No Hx Cardiac Disorders: No Hx Congestive Heart Failure: No Hx Pacemaker: No Hx Hypertension: Yes Hx Thyroid Disease: No Hx Diabetes: Yes - IDDM Hx Gastroesophageal Reflux: No Hx Renal Disease: Yes - on dialysis, shunt in upper left arm Hx Cancer: No Hx of HIV: No Hx Hepatitis C: No Hx MRSA: No MRSA Source:: Wound - Vaccination History Hx Tetanus, Diphtheria Vaccination: No - ALLERGIC Hx Influenza Vaccination: Yes Hx Pneumococcal Vaccination: Yes - Social History Hx Tobacco Use: Yes Hx Chewing Tobacco Use: No Hx Alcohol Use: No Hx Substance Use: No Hx Substance Use Treatment: No Hx Depression: No Hx Physical Abuse: No Hx Emotional Abuse: No Hx Suspected Abuse: No - Female History Patient : No Family Medical History - Family History Father Family History: Unknown Living Status: Age at (years of age): 62 Cause of : "blood poisoning" Hx Family Asthma: No Hx Family Congestive Heart Failure: No Hx Family Hypertension: No Hx Family Stroke: No Hx Cardiac Disease: No Hx Family Diabetes: Yes - mom Hx Family Cancer: No Physical Exam - Physical Exam General Appearance: Alert, No apparent distress Eye Exam: bilateral normal Ears, Nose, Throat: normal ENT inspection, normal pharynx Neck: non-tender, full range of motion, supple, normal inspection Respiratory: chest non-tender, lungs clear, normal breath sounds, no respiratory distress Cardiovascular/Chest: normal peripheral pulses, regular rate, rhythm, no edema, no murmur Peripheral Pulses: radial,right: 2+, radial,left: 2+ Gastrointestinal/Abdominal: non tender, soft, no organomegaly, abnormal bowel sounds - hyperactive, other - large midline vertical incision to abdomen from prior surgery, well-healed Back Exam: normal inspection, no CVA tenderness, no vertebral tenderness Extremity: normal range of motion, non-tender, normal inspection, no pedal edema, no calf tenderness 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 EKG obtained given hypokalemia and nonspecific lateral changes noted - f/u troponin found to be elevated to 0.5. Pt continues to deny chest pain. Will give ASA 325 mg PO and begin heparin gtt and arrange for urgent transfer for cardiology consultation due to concern for NSTEMI. 11/01/19 13:36 -Spoke with patient at length regarding elevated troponin and concern for possible heart attack. He states "I've been transferred up there so many times for this and they always tell me nothing is wrong with my heart." He reports no hx of heart cath to his knowledge. I told him given his elevated troponin level which is specific to the heart and his nonspecific symptoms, this could potentially be heart related. Strongly advised transfer for urgent cardiology consultation and also for inpatient admission of electrolyte derangements. He adamantly refuses and verbalizes understanding of risk of not being transferred including deterioration, heart attack, and . Wishes to leave against medical advice. Kelvin Sosa MD Billing #[id number] - EKG/XRAY/CT EKG: Sinus - NSR with RBBB, HR 80, no ST elevations or q waves, min <[address] depressions in aVL, V6, left axis deviation, 1st degree AV block noted, T wave inversion in V6 appears new compared to 12/17/18 EKG otherwise unchanged. Departure - Departure Clinical Impression: NSTEMI (non-ST elevated myocardial infarction), Hypokalemia, Hypomagnesemia, Hypocalcemia Time of Disposition: 13:39 Disposition: Left Against Medical Advice Condition: Serious Referrals: PANFILO RIBERA MD [Primary Care Provider] - 1-2 Weeks Home Medications: Ambulatory Orders Amlodipine Besylate 5 mg PO DAILY 07/13/13 Clonidine HCl 0.1 mg PO DAILY 07/13/13 Metoprolol Tartrate 50 mg PO DAILY 07/13/13 Insulin Aspart Protamine & Asp [Novolog Mix 70/30 (70-30) 100 Unit/ml] 20 unit SC DAILY 05/25/15 B-Complex W/ C & Folic Acid [Renal-Caitlyn 0.8 mg] 1 tab PO DAILY 08/09/19 Calcium Acetate (Phosphate Bin [Calcium Acetate] 667 mg PO TID 08/09/19 Enalapril Maleate [Vasotec] 20 mg PO DAILY 08/09/19 hydrALAZINE HCl [(None)] 25 mg PO DAILY 08/09/19 predniSONE 40 mg PO DAILY 08/09/19 Methylprednisolone [Medrol Dose Mayur] 4 mg PO DAILY 6 Days #21 tab 09/22/19 Cephalexin Monohydrate [Keflex] 500 mg PO TID #40 cap 10/03/19 Prednisone 50 mg PO ONCE #5 tab 10/03/19 Prednisone 10 mg PO DAILY #1 mayur 10/11/19 Additional Instructions: Please return to this ED or any other ED at any time for repeat evaluation or if you change your mind and would like to be transferred. Return also if your symptoms worsen or if you develop any other new or concerning symptoms such as chest pain, shortness of breath, intractable nausea & vomiting, etc...
[2019-11-01 12:24] VITALS: TEMP 97.6
--- NOTE | 2019-11-01 12:27 | RAD ---
EXAM DESCRIPTION: Chest,1 View (accession [id number]), Abdomen 1 View (accession [id number]) CLINICAL HISTORY: 74 years Male, nausea, elevated blood pressure, dialysis patient COMPARISON: December 05, 2018 Findings: Two views/radiographs Chest: Cardiomegaly. Pulmonary vascular congestion. Small bilateral pleural effusions. Consolidation. No pneumothorax. No acute osseous abnormality ABDOMEN: Nonobstructive bowel gas pattern. No free air diaphragm. No suspicious calcification. No acute osseous abnormality. Cholelithiasis. IMPRESSION: CHF/volume overload. Electronically signed by: Chan Mancia MD 11/01/2019 12:25 PM RESPIRATORY TECHNICIAN
--- NOTE | 2019-11-01 12:27 | RAD ---
EXAM DESCRIPTION: Chest,1 View (accession [id number]), Abdomen 1 View (accession [id number]) CLINICAL HISTORY: 74 years Male, nausea, elevated blood pressure, dialysis patient COMPARISON: December 05, 2018 Findings: Two views/radiographs Chest: Cardiomegaly. Pulmonary vascular congestion. Small bilateral pleural effusions. Consolidation. No pneumothorax. No acute osseous abnormality ABDOMEN: Nonobstructive bowel gas pattern. No free air diaphragm. No suspicious calcification. No acute osseous abnormality. Cholelithiasis. IMPRESSION: CHF/volume overload. Electronically signed by: Chan Mancia MD 11/01/2019 12:25 PM [employer]S CONSERVATOR
[2019-11-01] MEDS ORDERED: KCL 20MEQ/WATER FOR INJ 100ML 0 ML IVPB ONE (13:22)
[2019-11-01] MEDS ORDERED: MAGNESIUM SULFATE PREMIX 2GM 50 ML IVPB ONE (13:23)
[2019-11-01] MEDS: MAGNESIUM SULFATE PREMIX 2GM 2 GM in PREMIX BAG 1 BAG IVPB ONE (13:24)
[2019-11-01] MEDS: ONDANSETRON INJ 4 MG/2 ML VIAL IV ONE ×2 (13:24→14:30)
[2019-11-01] MEDS ORDERED: HEPARIN PREMIX 25,000 UNITS in PREMIX BAG 1 BAG IVS SCH (13:30)
[2019-11-01] MEDS: ASPIRIN (ENTERIC COATED) 325 MG TAB PO ONE (14:31)
[2019-11-01] MEDS: POTASSIUM CHLORIDE 20 MEQ TAB PO ONE ×2 (14:31→14:54)
[2019-11-01] MEDS: KCL 20MEQ/WATER FOR INJ 100ML 20 MEQ in PREMIX BAG 1 BAG IVPB ONE (14:41)
[2019-11-01] MEDS: HEPARIN SODIUM (PORCINE) 5,000 U/ML VIAL IV ONE (14:41)
[2019-11-01 14:58] VITALS: BP 168/106; O2SAT 92
== END 2019-11-01 14:40 | disposition left against medical advice (07) ==
LOC: ER 11:49
DX: I21.4 Non-ST elevation (NSTEMI) myocardial infarction (principal); E87.6 Hypokalemia; E83.42 Hypomagnesemia; E83.51 Hypocalcemia; R11.0 Nausea; I44.0 Atrioventricular block, first degree; I45.10 Unspecified right bundle-branch block; I25.10 Atherosclerotic heart disease of native coronary artery without angina pectoris; N18.6 End stage renal disease; E11.22 Type 2 diabetes mellitus with diabetic chronic kidney disease; I12.0 Hypertensive chronic kidney disease with stage 5 chronic kidney disease or end stage renal disease; R19.7 Diarrhea, unspecified; Z53.29 Procedure and treatment not carried out because of patient's decision for other reasons; Z90.49 Acquired absence of other specified parts of digestive tract; Z99.2 Dependence on renal dialysis; Z88.7 Allergy status to serum and vaccine; Z79.899 Other long term (current) drug therapy; Z79.4 Long term (current) use of insulin; Z87.891 Personal history of nicotine dependence
CPT/HCPCS: 36415; 71045; 74018; 80048; 80076; 83690; 83735; 83880; 84484; 85025; 87502; 93005; J2405; J3475

== ENCOUNTER → 2019-11-24 | Outpatient (CLI) | payer MEDICARE | LOC: GMAE 14:19 | PROVIDERS: ATTEND Family Medicine | DX: E83.42 Hypomagnesemia (principal); E87.6 Hypokalemia ==

== ENCOUNTER 2019-11-29 21:36 | Emergency (ER) | payer MEDICARE ==
[2019-11-29] MEDS ORDERED: methylPREDNISolone SODIUM SUC 125 MG/2 ML VIAL IM ONE (21:48)
[2019-11-29 21:51] VITALS: TEMP 98.2; O2SAT 100
--- NOTE | 2019-11-29 21:52 | ED.PDOC ---
History of Present Illness - General Chief Complaint: Upper Extremity Injury Stated Complaint: left hand pain R/T carpal tunnel Time Seen by Provider: 11/29/19 21:41 Source: patient Exam Limitations: no limitations - History of Present Illness Initial Comments: 74-year-old male presents to the emergency department complaining of left hand pain and swelling onset 1 day ago. He reports the swelling is located over the first MCP joints and the pain is located in the thumb index and middle finger. He reports that the pain is similar to when he had carpal tunnel in the past. He did have a surgery performed to do a carpal tunnel release in July 2019 and is continued to have pain since that time. He is not currently taking any pain medications at home. He denies any trauma. He has not had any fever or chills. Pain is currently rated 10/10 in severity and is worsened with palpation and movement. He is on dialysis T, TH and Sat and has not missed any appts. Allergies/Adverse Reactions: Allergies Tetanus Toxoid Allergy (Verified 08/09/19 11:14) Swelling of extremities Home Medications: Ambulatory Orders Amlodipine Besylate 5 mg PO DAILY 07/13/13 Clonidine HCl 0.1 mg PO DAILY 07/13/13 Metoprolol Tartrate 50 mg PO DAILY 07/13/13 Insulin Aspart Protamine & Asp [Novolog Mix 70/30 (70-30) 100 Unit/ml] 20 unit SC DAILY 05/25/15 B-Complex W/ C & Folic Acid [Renal-Caitlyn 0.8 mg] 1 tab PO DAILY 08/09/19 Calcium Acetate (Phosphate Bin [Calcium Acetate] 667 mg PO TID 08/09/19 Enalapril Maleate [Vasotec] 20 mg PO DAILY 08/09/19 Acetaminophen W/ Codeine [Tylenol W/ CODEINE #3] 1 ea PO Q8H PRN #15 11/29/19 Bumetanide 11/29/19 Prednisone 50 mg PO DAILY #5 tab 11/29/19 Review of Systems - Review of Systems Constitutional: Denies: chills, fever EENTM: Denies: nose congestion, throat pain Respiratory: Denies: cough, short of breath Cardiology: Denies: chest pain, palpitations Gastrointestinal/Abdominal: Denies: abdominal pain, nausea, vomiting Genitourinary: Denies: dysuria, hematuria Musculoskeletal: States: joint pain, joint swelling, muscle pain - L hand Skin: Denies: lesions, rash Neurological: States: paresthesia - L thumb, index and middle fingers Past Medical History (General) - Patient Medical History Hx Seizures: No Hx Stroke: No Hx Dementia: No Hx Asthma: No Hx of COPD: No Hx Cardiac Disorders: No Hx Congestive Heart Failure: No Hx Pacemaker: No Hx Hypertension: Yes Hx Thyroid Disease: No Hx Diabetes: Yes - IDDM Hx Gastroesophageal Reflux: No Hx Renal Disease: Yes - on dialysis, shunt in upper left arm Hx Cancer: No Hx of HIV: No Hx Hepatitis C: No Hx MRSA: No MRSA Source:: Wound - Vaccination History Hx Tetanus, Diphtheria Vaccination: No - ALLERGIC Hx Influenza Vaccination: Yes Hx Pneumococcal Vaccination: Yes - Social History Hx Tobacco Use: Yes Hx Chewing Tobacco Use: No Hx Alcohol Use: No Hx Substance Use: No Hx Substance Use Treatment: No Hx Depression: No Hx Physical Abuse: No Hx Emotional Abuse: No Hx Suspected Abuse: No - Female History Patient : No Family Medical History - Family History Father Family History: Unknown Living Status: Age at (years of age): 62 Cause of : "blood poisoning" Hx Family Asthma: No Hx Family Congestive Heart Failure: No Hx Family Hypertension: No Hx Family Stroke: No Hx Cardiac Disease: No Hx Family Diabetes: Yes - mom Hx Family Cancer: No Physical Exam - Physical Exam General Appearance: Alert, No apparent distress, Well Developed, Well Nourished Eyes, Ears, Nose, Throat Exam: PERRL/EOMI, normal ENT inspection, pharynx normal Neck: supple, normal inspection Cardiovascular/Respiratory: no M/R/G, normal peripheral pulses Elbow/Forearm Exam: normal inspection, normal ROM Wrist Exam: normal inspection, normal ROM Hand Exam: no evidence of injury, bone tenderness - L thumb, index and middle fingers., limited ROM - due to pain, swelling - L second and third MCP joint Neuro/Tendon: normal sensation, normal motor functions Mental Status: alert, oriented x 3, other - Moves all extremities without focal deficits Skin Exam: normal color, warm/dry Comments: Fistula L upper arm with good thrill and bruit. No overlying erythema or warmth to the skin of the hand. Normal sensation and cap refill <2 seconds in fingers. Vital Signs - 24 hr 01/13/20 21:40 Temperature 98.2 F Pulse Rate [ 96 H monitor] Respiratory 18 Rate Blood Pressure 174/104 [Right Arm] O2 Sat by Pulse 100 Oximetry Progress - Progress Progress: 11/29/19 21:49 Old record review: The patient was seen on 09/22/19, 10/03/19 and 10/11/19 for same symptoms. On 10/03/19 he had hand x-rays which were negative for anything acute other than soft tissue swelling. Following these visits he was given prescriptions for short courses of steroids and encouraged to follow up with Dr. Mg. 11/29/19 21:56 Patient was seen and evaluated in the emergency department. His previous visits were reviewed. On exam he has findings consistent with mild soft tissue swelling without overlying cellulitis. He does have painful range of motion of the fingers primarily the thumb, index and middle fingers on the left hand. I discussed with him I suspect sx may be related to arthritis but I stressed the importance of follow-up with Dr. Mg as these problems have persisted despite his carpal tunnel surgery. We will give him a shot of steroids in the emergency department and treat with outpatient steroids as well as a short course of pain medication. He is encouraged to return to the emergency department for any worsening of symptoms or other concerns. The patient has voiced understanding and agrees with this plan. All questions and concerns were addressed. Departure - Departure Clinical Impression: Left hand pain Time of Disposition: 22:00 Disposition: Discharge to Home or Self Care Condition: Good Departure Forms: ED Discharge - Pt. Copy, Patient Portal Self Enrollment Instructions: DI for Hand Pain, Osteoarthritis (DC) Referrals: PANFILO RIBERA MD [Primary Care Provider] - 1-2 Weeks Samuel Mg MD [Active Staff] - 1-5 Days Prescriptions: Acetaminophen W/ Codeine [Tylenol W/ CODEINE #3] 1 ea PO Q8H PRN #15 PRN Reason: Pain Prednisone 50 mg PO DAILY #5 tab Home Medications: Ambulatory Orders Amlodipine Besylate 5 mg PO DAILY 07/13/13 Clonidine HCl 0.1 mg PO DAILY 07/13/13 Metoprolol Tartrate 50 mg PO DAILY 07/13/13 Insulin Aspart Protamine & Asp [Novolog Mix 70/30 (70-30) 100 Unit/ml] 20 unit SC DAILY 05/25/15 B-Complex W/ C & Folic Acid [Renal-Caitlyn 0.8 mg] 1 tab PO DAILY 08/09/19 Calcium Acetate (Phosphate Bin [Calcium Acetate] 667 mg PO TID 08/09/19 Enalapril Maleate [Vasotec] 20 mg PO DAILY 08/09/19 Acetaminophen W/ Codeine [Tylenol W/ CODEINE #3] 1 ea PO Q8H PRN #15 11/29/19 Bumetanide 11/29/19 Prednisone 50 mg PO DAILY #5 tab 11/29/19 Additional Instructions: Take all medications as directed. Call Dr. Morley office to schedule follow-up appointment as soon as possible. Return to the emergency department for any worsening of symptoms or other concerns.
[2019-11-29 22:05] VITALS: BP 132/96
== END 2019-11-29 22:05 | disposition home or self-care (01) ==
LOC: ER 21:36
DX: M79.642 Pain in left hand (principal); R20.2 Paresthesia of skin; N18.6 End stage renal disease; E11.22 Type 2 diabetes mellitus with diabetic chronic kidney disease; I12.0 Hypertensive chronic kidney disease with stage 5 chronic kidney disease or end stage renal disease; Z88.7 Allergy status to serum and vaccine; Z79.4 Long term (current) use of insulin; Z99.2 Dependence on renal dialysis; Z79.899 Other long term (current) drug therapy; Z87.891 Personal history of nicotine dependence

== ENCOUNTER 2019-12-04 10:15 | Emergency (ER) | payer MEDICARE ==
--- NOTE | 2019-12-04 10:34 | ED.PDOC ---
History of Present Illness - General Chief Complaint: General Stated Complaint: AV fistula issue Time Seen by Provider: 12/04/19 10:32 Source: patient - History of Present Illness Initial Comments: 74 yo male with PMH of ESRD on HD TThS, HTN, CAD, DM2 who presents with cc of left UE AV fistula issue. Pt was receiving his scheduled HD this morning when he began bleeding heavily from his L UE AV fistula site. HD nurses reportedly had to work for 30 minutes to control the bleeding and were trying to re- initiate his HD but were unable and pulling large clots through his line. His transcribing operators supervisor (Dr. Peguero) was contacted who instructed pt be sent to the ED and transferred up to [place] for urgent consultation and evaluation of possible thrombus of his AV fistula. Pt denies any acute sx's - denies arm pain, weakness, numbness, chest pain, dyspnea, dizziness, lightheadedness, swelling, abd pain, n/v/d. Reports last HD session prior to today was 2 days ago and without issue. Pt had Left AV fistula surgery 11/2018 and has been on HD TThS since that time without issue. Allergies/Adverse Reactions: Allergies Tetanus Toxoid Allergy (Verified 11/29/19 21:51) Swelling of extremities Home Medications: Ambulatory Orders Amlodipine Besylate 5 mg PO DAILY 07/13/13 Clonidine HCl 0.1 mg PO DAILY 07/13/13 Metoprolol Tartrate 50 mg PO DAILY 07/13/13 Insulin Aspart Protamine & Asp [Novolog Mix 70/30 (70-30) 100 Unit/ml] 20 unit SC DAILY 05/25/15 B-Complex W/ C & Folic Acid [Renal-Caitlyn 0.8 mg] 1 tab PO DAILY 08/09/19 Calcium Acetate (Phosphate Bin [Calcium Acetate] 667 mg PO TID 08/09/19 Enalapril Maleate [Vasotec] 20 mg PO DAILY 08/09/19 Acetaminophen W/ Codeine [Tylenol W/ CODEINE #3] 1 ea PO Q8H PRN #15 11/29/19 Bumetanide 11/29/19 Prednisone 50 mg PO DAILY #5 tab 11/29/19 Review of Systems - Review of Systems Review of Systems: 12/04/19 10:47 as per HPI All other Systems: Reviewed and Negative Past Medical History (General) - Patient Medical History Hx Seizures: No Hx Stroke: No Hx Dementia: No Hx Asthma: No Hx of COPD: No Hx Cardiac Disorders: No Hx Congestive Heart Failure: No Hx Pacemaker: No Hx Hypertension: Yes Hx Thyroid Disease: No Hx Diabetes: Yes - IDDM Hx Gastroesophageal Reflux: No Hx Renal Disease: Yes - on dialysis, shunt in upper left arm Hx Cancer: No Hx of HIV: No Hx Hepatitis C: No Hx MRSA: No MRSA Source:: Wound - Vaccination History Hx Tetanus, Diphtheria Vaccination: No - ALLERGIC Hx Influenza Vaccination: Yes Hx Pneumococcal Vaccination: Yes - Social History Hx Tobacco Use: Yes Hx Chewing Tobacco Use: No Hx Alcohol Use: No Hx Substance Use: No Hx Substance Use Treatment: No Hx Depression: No Hx Physical Abuse: No Hx Emotional Abuse: No Hx Suspected Abuse: No - Female History Patient : No Family Medical History - Family History Father Family History: Unknown Living Status: Age at (years of age): 62 Cause of : "blood poisoning" Hx Family Asthma: No Hx Family Congestive Heart Failure: No Hx Family Hypertension: No Hx Family Stroke: No Hx Cardiac Disease: No Hx Family Diabetes: Yes - mom Hx Family Cancer: No Physical Exam - Physical Exam General Appearance: Alert, Comfortable, No apparent distress Eye Exam: bilateral normal Ears, Nose, Throat: normal ENT inspection, normal pharynx Neck: non-tender, full range of motion, supple, normal inspection Respiratory: lungs clear, normal breath sounds, no respiratory distress Cardiovascular/Chest: normal peripheral pulses, regular rate, rhythm, no edema, no gallop, no JVD, no murmur Peripheral Pulses: radial,right: 2+, radial,left: 2+ Gastrointestinal/Abdominal: non tender, soft, no organomegaly Back Exam: normal inspection, no CVA tenderness, no vertebral tenderness Extremity: normal range of motion, non-tender, normal inspection, no pedal edema, no calf tenderness, other - L UE AV fistula with strong palpable bruit, compression dressing applied and appears clean and hemostatic Neurologic: anthropology professor II-XII nml as tested, no motor/sensory deficits, alert, normal mood/affect, oriented x 3 Skin Exam: normal color, warm/dry Progress - Progress Progress: 12/04/19 10:49 LUE AV fistula failure -consider fistula thrombosi vs outflow stenosis vs other. Also consider blood loss anemia vs coagulation disorder vs electrolyte derangement -BP also elevated on arrival 210s/100s - pt states not on BP meds "because it drops me too low so they stopped it" - consider fluid overload/pulmonary edema (although appears euvolemic on exam), hypertensive urgency, other -obtain labwork, place PIV -as doppler venous studies unavailable here and at request of transcribing operators supervisor, will need to transfer urgently to [facility] for further evaluation of LUE AV fistula site 12/04/19 11:56 -Labs show H/H 9.328. Last month was 10.4/31. K 4.0. -Pt remains stable. BP still elevated 190s/90s - giving clonidine 0.1 mg PO. No further hemorrhaging from the AV fistula site. Clean compression dressing remains in place. -Spoke with Dr. Mao at [facility] ED who accepts pt for transfer for urgent vascular surgery consultation, which is unavailable here. Stable to go via ground EMS. Kelvin Sosa MD Billing #[id number] - Results/Orders Results/Orders: 12/04/19 10:41 Sodium Chloride 0.9% (Flush) [Saline Flush Syringe] 10 ml IV PRN PRN Pulse Oximetry Assessment DAILY 12/05/19 09:00 Pulse Ox Daily Laboratory Results - last 24 hr 12/04/19 12/04/19 12/04/19 10:41 10:41 10:42 WBC 10.9 H RBC 3.01 L Hgb 9.3 L Hct 28.7 L MCV 95.4 H MCH 31.0 MCHC 32.4 L RDW 19.2 H Plt Count 152 MPV 9.0 Absolute Neuts (auto) 9.40 H Absolute Lymphs (auto) 0.90 L Absolute Monos (auto) 0.60 Absolute Eos (auto) 0.00 Absolute Basos (auto) 0.10 Neutrophils % 85.7 H Lymphocytes % 8.6 L Monocytes % 5.1 Eosinophils % 0.1 L Basophils % 0.5 PT 10.7 INR 1.08 PTT (SP) 20.5 L D-Dimer, Quantitative 2890.00 H* Sodium 136 Potassium 4.0 Chloride 98 L Carbon Dioxide 18 L Anion Gap 24.0 H BUN 77 H Creatinine 10.86 H* BUN/Creatinine Ratio 7.1 L Random Glucose 316 H Serum Osmolality 307.0 H Calcium 6.7 L* Departure - Departure Clinical Impression: Failing arteriovenous fistula Qualifiers: Encounter type: initial encounter Qualified Code(s): T82.590A - Other mechanical complication of surgically created arteriovenous fistula, initial encounter Time of Disposition: 12:01 Disposition: Transfer to Hospital Condition: Fair Departure Forms: ED Discharge - Pt. Copy, Patient Portal Self Enrollment Referrals: PANFILO RIBERA MD [Primary Care Provider] - 1-2 Weeks Home Medications: Ambulatory Orders Amlodipine Besylate 5 mg PO DAILY 07/13/13 Clonidine HCl 0.1 mg PO DAILY 07/13/13 Metoprolol Tartrate 50 mg PO DAILY 07/13/13 Insulin Aspart Protamine & Asp [Novolog Mix 70/30 (70-30) 100 Unit/ml] 20 unit SC DAILY 05/25/15 B-Complex W/ C & Folic Acid [Renal-Caitlyn 0.8 mg] 1 tab PO DAILY 08/09/19 Calcium Acetate (Phosphate Bin [Calcium Acetate] 667 mg PO TID 08/09/19 Enalapril Maleate [Vasotec] 20 mg PO DAILY 08/09/19 Acetaminophen W/ Codeine [Tylenol W/ CODEINE #3] 1 ea PO Q8H PRN #15 11/29/19 Bumetanide 11/29/19 Prednisone 50 mg PO DAILY #5 tab 11/29/19 Transfer to Outside Facility - Transfer Information Decision to Transfer Date: 12/04/19 Decision to Transfer Time: 12:01 Reason for Transfer: required specialist not available - vascular surgery Accepting Provider:: Dr. Mao Accepting Facility: [facility]
[2019-12-04] MEDS ORDERED: SODIUM CHLORIDE 0.9% (FLUSH) 10 ML SYG IV PRN (10:41)
[2019-12-04] MEDS ORDERED: cloNIDine HCL 0.1 MG TAB PO ONE (11:30)
[2019-12-04 12:14] VITALS: BP 184/90; TEMP 97.1; O2SAT 98
== END 2019-12-04 12:27 | disposition short-term general hospital (02) ==
LOC: ER 10:15
DX: T82.838A Hemorrhage due to vascular prosthetic devices, implants and grafts, initial encounter (principal); N18.6 End stage renal disease; E11.22 Type 2 diabetes mellitus with diabetic chronic kidney disease; I25.10 Atherosclerotic heart disease of native coronary artery without angina pectoris; I12.0 Hypertensive chronic kidney disease with stage 5 chronic kidney disease or end stage renal disease; Z99.2 Dependence on renal dialysis; Z79.4 Long term (current) use of insulin; Z88.7 Allergy status to serum and vaccine; Z79.899 Other long term (current) drug therapy; Z87.891 Personal history of nicotine dependence

== ENCOUNTER 2019-12-31 05:12 | Emergency (ER) | payer MEDICARE, MEDICAID ==
[2019-12-31] MEDS: SODIUM CHLORIDE 0.9% 1000ML 1,000 ML IVS PRN (06:27)
--- NOTE | 2019-12-31 06:30 | ED.PDOC ---
History of Present Illness - General Source: patient, RN notes reviewed, Vital Signs reviewed Exam Limitations: no limitations - History of Present Illness Initial Comments: Patient is a 74-year-old white male who presents with complaints of nausea and vomiting overnight. Patient states that there were multiple episodes. Nothing seems to bring the vomiting on or make it go away. He acutely feels worse and then vomits and then feels better. There is no pain associated vomiting. Patient denies any abdominal pain. Patient denies any posttussive emesis or cough at this time. Patient is a dialysis patient who dialyzes on Friday, and Friday. He last dialyzed yesterday. Timing/Duration: other - 12 hours Severity: moderate Improving Factors: nothing Worsening Factors: nothing Associated Symptoms: nausea/vomiting <Jorge Luis Houser - Last Filed: 12/31/19 06:59> <Jaciel Phillip - Last Filed: 12/31/19 07:40> - General Chief Complaint: GI Problem Stated Complaint: nausea vomiting all night Time Seen by Provider: 12/31/19 05:53 - History of Present Illness Allergies/Adverse Reactions: Allergies Tetanus Toxoid Allergy (Verified 11/29/19 21:51) Swelling of extremities Home Medications: Ambulatory Orders Amlodipine Besylate 5 mg PO DAILY 07/13/13 Clonidine HCl 0.1 mg PO DAILY 07/13/13 Metoprolol Tartrate 50 mg PO DAILY 07/13/13 Insulin Aspart Protamine & Asp [Novolog Mix 70/30 (70-30) 100 Unit/ml] 20 unit SC DAILY 05/25/15 B-Complex W/ C & Folic Acid [Renal-Caitlyn 0.8 mg] 1 tab PO DAILY 08/09/19 Calcium Acetate (Phosphate Bin [Calcium Acetate] 667 mg PO TID 08/09/19 Enalapril Maleate [Vasotec] 20 mg PO DAILY 08/09/19 Acetaminophen W/ Codeine [Tylenol W/ CODEINE #3] 1 ea PO Q8H PRN #15 11/29/19 Bumetanide 11/29/19 Prednisone 50 mg PO DAILY #5 tab 11/29/19 Azithromycin 500 mg PO DAILY #5 tab 12/31/19 Ondansetron Odt [Zofran ODT] 4 mg PO Q8HR PRN #5 tab 12/31/19 Sucralfate Tab [Carafate Tab] 1 gm PO QID #40 tab 12/31/19 Review of Systems - Review of Systems Constitutional: States: see HPI. Denies: chills, fever EENTM: States: no symptoms reported. Denies: blurred vision, nose congestion, throat swelling Respiratory: States: cough - White phlegm, wheezing. Denies: short of breath Cardiology: States: no symptoms reported. Denies: chest pain, palpitations, syncope Gastrointestinal/Abdominal: States: see HPI, nausea, vomiting. Denies: abdominal pain Genitourinary: States: no symptoms reported Musculoskeletal: States: no symptoms reported. Denies: back pain, neck pain Skin: States: no symptoms reported. Denies: change in color, rash Neurological: States: no symptoms reported. Denies: headache, paresthesia, tingling, weakness Endocrine: States: no symptoms reported. Denies: intolerance to cold, intolerance to heat Hematologic/Lymphatic: States: no symptoms reported. Denies: easy bleeding, easy bruising All other Systems: Reviewed and Negative <Jorge Luis Houser - Last Filed: 12/31/19 06:59> Past Medical History (General) - Patient Medical History Hx Seizures: No Hx Stroke: No Hx Dementia: No Hx Asthma: No Hx of COPD: No Hx Cardiac Disorders: No Hx Congestive Heart Failure: No Hx Pacemaker: No Hx Hypertension: Yes Hx Thyroid Disease: No Hx Diabetes: Yes - IDDM Hx Gastroesophageal Reflux: No Hx Renal Disease: Yes - on dialysis, shunt in upper left arm Hx Cancer: No Hx of HIV: No Hx Hepatitis C: No Hx MRSA: No MRSA Source:: Wound Surgical History: appendectomy, other - Vaccination History Hx Tetanus, Diphtheria Vaccination: No Hx Influenza Vaccination: Yes Hx Pneumococcal Vaccination: Yes - Social History Hx Tobacco Use: No Hx Chewing Tobacco Use: No Hx Alcohol Use: No Hx Substance Use: No Hx Substance Use Treatment: No Hx Depression: No Hx Physical Abuse: No Hx Emotional Abuse: No Hx Suspected Abuse: No - Female History Patient : No <Jorge Luis Houser - Last Filed: 12/31/19 06:59> Family Medical History - Family History Father Family History: Unknown Living Status: Age at (years of age): 62 Cause of : "blood poisoning" Hx Family Asthma: No Hx Family Congestive Heart Failure: No Hx Family Hypertension: No Hx Family Stroke: No Hx Cardiac Disease: No Hx Family Diabetes: Yes - mom Hx Family Cancer: No <Jorge Luis Houser - Last Filed: 12/31/19 06:59> Physical Exam - Physical Exam General Appearance: Alert, Comfortable, Well Developed, Well Groomed, Well Hydrated, Well Nourished Eye Exam: bilateral normal Ears, Nose, Throat: hearing grossly normal, normal ENT inspection, normal pharynx Neck: non-tender, full range of motion, supple, normal inspection Respiratory: chest non-tender, no respiratory distress, no accessory muscle use, rhonchi, wheezing Cardiovascular/Chest: normal peripheral pulses, regular rate, rhythm, no edema, no gallop, no JVD, no murmur Peripheral Pulses: radial,right: 2+, radial,left: 2+ Gastrointestinal/Abdominal: normal bowel sounds, non tender, soft, other - Well- healed scars on the abdomen. Back Exam: normal inspection, no CVA tenderness, no vertebral tenderness Extremity: normal range of motion, non-tender, normal inspection, no calf tenderness Neurologic: shed boss II-XII nml as tested, no motor/sensory deficits, alert, normal mood/affect, oriented x 3 Skin Exam: normal color, warm/dry Lymphatic: no adenopathy <Jorge Luis Houser - Last Filed: 12/31/19 06:59> Progress - Progress Progress: Differential diagnosis: Electrolyte abnormality, pneumonia, volume overload, colitis, bowel obstruction among others. 12/31/19 06:55 Patient resting quietly without any vomiting since IV established and given IV Zofran. Patient handed off to Dr. Phillip at shift change. Jorge Luis Houser M.D. - Results/Orders Results/Orders: EKG performed on 31 December 2019 at 0539 hrs.: Sinus rhythm with a first- degree AV block at 90 bpm, left axis deviation, right bundle branch block, possible lateral infarct, age undetermined, abnormal EKG. Unchanged compared to 11/01/2019 at 1149 hrs. EXAM: XR Chest, 1 View C LINICAL HISTORY: The patient is 74 years old and is Male; nausea vomiting, coughing, yellow mucus TECHNIQUE: Frontal view of the chest. COMPARISON: Chest radiograph November 01, 2019. FINDINGS: LUNGS: Subtle opacity within the right lower lobe is noted. Linear scarring within the right midlung is present. The left lung is relatively clear. PLEURAL SPACE: Unremarkable. No pneumothorax. HEART: The cardiac silhouette is prominent. MEDIASTINUM: Unremarkable. BONES/JOINTS: Unremarkable. VASCULATURE: Atherosclerosis of the aorta is present. I MPRESSION: Findings suggest a right basilar atelectasis/developing infiltrate. Electronically signed by: Ruthie Singer MD 12/31/2019 6:44 AM 12/31/19 05:32 IV Care:Saline Lock per Protoc QSHIFT Sodium Chloride 0.9% (Flush) [Saline Flush Syringe] 10 ml IV PRN PRN Sodium Chloride 0.9% 1000ML [Ns 1000 ml] 1,000 ml IVS .QD EKG Assessment ONCE URINALYSIS Stat 12/31/19 05:45 EKG STAT Laboratory Results - last 24 hr 12/31/19 12/31/19 12/31/19 06:30 06:30 06:30 WBC 8.4 RBC 3.49 L Hgb 10.2 L Hct 30.8 L MCV 88.2 MCH 29.1 MCHC 32.9 L RDW 15.8 H Plt Count 147 MPV 8.7 Absolute Neuts (auto) 6.10 Absolute Lymphs (auto) 1.80 Absolute Monos (auto) 0.40 Absolute Eos (auto) 0.10 Absolute Basos (auto) 0.10 Neutrophils % 72.2 Lymphocytes % 20.9 Monocytes % 5.3 Eosinophils % 0.8 L Basophils % 0.8 Sodium 139 Potassium 3.6 Chloride 96 L Carbon Dioxide 30 Anion Gap 16.6 BUN 20 H Creatinine 4.60 H BUN/Creatinine Ratio 4.3 L Random Glucose 133 H Serum Osmolality 282.1 Lactic Acid Calcium 7.5 L Total Bilirubin 1.0 Direct Bilirubin 0.2 Indirect Bilirubin 0.8 AST 16 ALT < 8 L Alkaline Phosphatase 66 Serum Total Protein 5.9 L Albumin 2.2 L Amylase 49 Lipase 28 12/31/19 06:30 WBC RBC Hgb Hct MCV MCH MCHC RDW Plt Count MPV Absolute Neuts (auto) Absolute Lymphs (auto) Absolute Monos (auto) Absolute Eos (auto) Absolute Basos (auto) Neutrophils % Lymphocytes % Monocytes % Eosinophils % Basophils % Sodium Potassium Chloride Carbon Dioxide Anion Gap BUN Creatinine BUN/Creatinine Ratio Random Glucose Serum Osmolality Lactic Acid 1.9 Calcium Total Bilirubin Direct Bilirubin Indirect Bilirubin AST ALT Alkaline Phosphatase Serum Total Protein Albumin Amylase Lipase <Jorge Luis Houser - Last Filed: 12/31/19 06:59> - Progress Progress: 12/31/19 07:35 The patient is a 74-year-old male on dialysis presenting secondary to about 6 hours of abrupt onset nausea and vomiting. No real focal abdominal pain. No blood. The patient is feeling significantly better after half a liter of IV fluids and a dose of Zofran. He will be written for Zofran for as needed use for the next couple of days along with some Carafate to take for the next week. X-ray shows a possibility of a very early right lower lobe pneumonia versus atelectasis. He will be written for a prescription for azithromycin to start taking if he starts having more respiratory symptoms. If he does not, the n I would not recommend this as it will likely worsen his GI symptoms. ER warnings are given. Keep follow-up with dialysis and his primary care doctor. [email or web address] phillip [phone] <Jaciel Phillip - Last Filed: 12/31/19 07:40> Departure - Departure Time of Disposition: 06:58 - Patient handed off at shift change to Dr. Phillip <Jorge Luis Houser - Last Filed: 12/31/19 06:59> - Departure Diet: diabetic diet Activity: increase activity as tolerated <Jaciel Phillip - Last Filed: 12/31/19 07:40> - Departure Clinical Impression: ESRD (end stage renal disease) on dialysis, Dehydration, Acute gastroenteritis Vomiting Qualifiers: Vomiting type: unspecified Vomiting Intractability: non-intractable Nausea presence: with nausea Qualified Code(s): R11.2 - Nausea with vomiting, unspecified Disposition: Discharge to Home or Self Care Condition: Good Departure Forms: ED Discharge - Pt. Copy, Patient Portal Self Enrollment Instructions: DI for Gastritis Referrals: PANFILO RIBERA MD [Primary Care Provider] - 1-2 Weeks Prescriptions: Ondansetron Odt [Zofran ODT] 4 mg PO Q8HR PRN #5 tab PRN Reason: Nausea--Moderate Azithromycin 500 mg PO DAILY #5 tab Sucralfate Tab [Carafate Tab] 1 gm PO QID #40 tab Home Medications: Ambulatory Orders Amlodipine Besylate 5 mg PO DAILY 07/13/13 Clonidine HCl 0.1 mg PO DAILY 07/13/13 Metoprolol Tartrate 50 mg PO DAILY 07/13/13 Insulin Aspart Protamine & Asp [Novolog Mix 70/30 (70-30) 100 Unit/ml] 20 unit SC DAILY 05/25/15 B-Complex W/ C & Folic Acid [Renal-Caitlyn 0.8 mg] 1 tab PO DAILY 08/09/19 Calcium Acetate (Phosphate Bin [Calcium Acetate] 667 mg PO TID 08/09/19 Enalapril Maleate [Vasotec] 20 mg PO DAILY 08/09/19 Acetaminophen W/ Codeine [Tylenol W/ CODEINE #3] 1 ea PO Q8H PRN #15 11/29/19 Bumetanide 11/29/19 Prednisone 50 mg PO DAILY #5 tab 11/29/19 Azithromycin 500 mg PO DAILY #5 tab 12/31/19 Ondansetron Odt [Zofran ODT] 4 mg PO Q8HR PRN #5 tab 12/31/19 Sucralfate Tab [Carafate Tab] 1 gm PO QID #40 tab 12/31/19 Additional Instructions: The patient is a 74-year-old male on dialysis presenting secondary to about 6 hours of abrupt onset nausea and vomiting. No real focal abdominal pain. The patient is feeling significantly better after half a liter of IV fluids and a dose of Zofran. He will be written for Zofran for as needed use for the next couple of days along with some Carafate to take for the next week. X-ray shows a possibility of a very early right lower lobe pneumonia versus atelectasis. He will be written for a prescription for azithromycin to start taking if he starts having more respiratory symptoms. If he does not, then I would not recommend this as it will likely worsen his GI symptoms. ER warnings are given. Keep follow-up with dialysis and his primary care doctor.
[2019-12-31] MEDS: ONDANSETRON INJ 4 MG/2 ML VIAL IV ONE (06:33)
[2019-12-31] MEDS: SODIUM CHLORIDE 0.9% (FLUSH) 10 ML SYG IV PRN (06:34)
--- NOTE | 2019-12-31 06:45 | RAD ---
EXAM: XR Chest, 1 View CLINICAL HISTORY: The patient is 74 years old and is Male; nausea vomiting, coughing, yellow mucus TECHNIQUE: Frontal view of the chest. COMPARISON: Chest radiograph November 01, 2019. FINDINGS: LUNGS: Subtle opacity within the right lower lobe is noted. Linear scarring within the right midlung is present. The left lung is relatively clear. PLEURAL SPACE: Unremarkable. No pneumothorax. HEART: The cardiac silhouette is prominent. MEDIASTINUM: Unremarkable. BONES/JOINTS: Unremarkable. VASCULATURE: Atherosclerosis of the aorta is present. IMPRESSION: Findings suggest a right basilar atelectasis/developing infiltrate. Electronically signed by: Ruthie Singer MD 12/31/2019 6:44 AM [facility]
[2019-12-31] MEDS: SODIUM CHLORIDE 0.9% 500ML 500 ML IVS ONE (07:31)
[2019-12-31 08:07] VITALS: BP 120/60; TEMP 97.6; O2SAT 92
== END 2019-12-31 08:00 | disposition home or self-care (01) ==
LOC: ER 05:12
DX: K52.9 Noninfective gastroenteritis and colitis, unspecified (principal); E86.0 Dehydration; N18.6 End stage renal disease; R06.2 Wheezing; R05 Cough; E11.22 Type 2 diabetes mellitus with diabetic chronic kidney disease; I12.0 Hypertensive chronic kidney disease with stage 5 chronic kidney disease or end stage renal disease; Z79.4 Long term (current) use of insulin; Z99.2 Dependence on renal dialysis; Z79.899 Other long term (current) drug therapy; Z88.7 Allergy status to serum and vaccine; Z90.49 Acquired absence of other specified parts of digestive tract
CPT/HCPCS: 36415; 71045; 80048; 80076; 82150; 83605; 83690; 85025; 93005; J2405; J7030

== ENCOUNTER 2020-03-14 06:09 | Emergency (ER) | payer MEDICARE, MEDICAID ==
[2020-03-14 06:22] VITALS: TEMP 97; O2SAT 98
--- NOTE | 2020-03-14 06:35 | ED.PDOC ---
History of Present Illness - General Chief Complaint: General Stated Complaint: right great toe pain x's 2 weeks Time Seen by Provider: 03/14/20 06:32 - History of Present Illness Initial Comments: 74 yo M PMH ESRD Gout presents to ED c/o right great toe pain x 3 weeks. Is on TTS dialysis schedule and due today. Denies fever chills nausea vomiting diarrhea chest pain sob diaphoresis no change in diet rest bowel or bladder admi ts FH DM has PMD [facility] for follow up denies recent travel cough sob or contact with [email or web address] no other c/o today. Allergies/Adverse Reactions: Allergies Tetanus Toxoid Allergy (Verified 03/14/20 06:22) Swelling of extremities Home Medications: Ambulatory Orders Amlodipine Besylate 5 mg PO DAILY 07/13/13 Clonidine HCl 0.1 mg PO DAILY 07/13/13 Metoprolol Tartrate 50 mg PO DAILY 07/13/13 Insulin Aspart Protamine & Asp [Novolog Mix 70/30 (70-30) 100 Unit/ml] 20 unit SC DAILY 05/25/15 B-Complex W/ C & Folic Acid [Renal-Caitlyn 0.8 mg] 1 tab PO DAILY 08/09/19 Calcium Acetate (Phosphate Bin [Calcium Acetate] 667 mg PO TID 08/09/19 Enalapril Maleate [Vasotec] 20 mg PO DAILY 08/09/19 Acetaminophen W/ Codeine [Tylenol W/ CODEINE #3] 1 ea PO Q8H PRN #15 11/29/19 Bumetanide 11/29/19 Prednisone 50 mg PO DAILY #5 tab 11/29/19 Azithromycin 500 mg PO DAILY #5 tab 12/31/19 Ondansetron Odt [Zofran ODT] 4 mg PO Q8HR PRN #5 tab 12/31/19 Sucralfate Tab [Carafate Tab] 1 gm PO QID #40 tab 12/31/19 Acetaminophen [Tylenol] 650 mg PO Q6H PRN #30 tab 03/14/20 Cephalexin Monohydrate [Keflex] 500 mg PO Q6H 10 Days #40 cap 03/14/20 Doxycycline (Monohydrate) [Doxycycline Monohydrate] 100 mg PO BID 10 Days #20 tab 03/14/20 Review of Systems - Review of Systems Constitutional: States: see HPI EENTM: States: see HPI Respiratory: States: see HPI Cardiology: States: see HPI Gastrointestinal/Abdominal: States: see HPI Genitourinary: States: see HPI Musculoskeletal: States: see HPI Skin: States: see HPI Neurological: States: see HPI Endocrine: States: see HPI Hematologic/Lymphatic: States: see HPI All other Systems: Reviewed and Negative Past Medical History (General) - Patient Medical History Hx Seizures: No Hx Stroke: No Hx Dementia: No Hx Asthma: No Hx of COPD: No Hx Cardiac Disorders: Yes - Hx DE Hx Congestive Heart Failure: Yes Hx Pacemaker: No Hx Hypertension: Yes Hx Thyroid Disease: No Hx Diabetes: Yes - IDDM Hx Gastroesophageal Reflux: No Hx Renal Disease: Yes - on dialysis, shunt in upper left arm Hx Cancer: No Hx of HIV: No Hx Hepatitis C: No Hx MRSA: No MRSA Source:: Wound Surgical History: appendectomy - Vaccination History Hx Tetanus, Diphtheria Vaccination: No - allergic Hx Influenza Vaccination: Yes Hx Pneumococcal Vaccination: Yes - Social History Hx Tobacco Use: No Hx Chewing Tobacco Use: No Hx Alcohol Use: No Hx Substance Use: No Hx Substance Use Treatment: No Hx Depression: No Hx Physical Abuse: No Hx Emotional Abuse: No Hx Suspected Abuse: No - Female History Patient : No Family Medical History - Family History Father Family History: Unknown Living Status: Age at (years of age): 62 Cause of : "blood poisoning" Hx Family Asthma: No Hx Family Congestive Heart Failure: No Hx Family Hypertension: No Hx Family Stroke: No Hx Cardiac Disease: No Hx Family Diabetes: Yes - mom Hx Family Cancer: No Physical Exam - Physical Exam General Appearance: No apparent distress Eye Exam: bilateral normal Ears, Nose, Throat: normal ENT inspection Neck: non-tender, full range of motion Respiratory: no respiratory distress Cardiovascular/Chest: regular rate, rhythm Gastrointestinal/Abdominal: non tender, soft Rectal Exam: deferred Back Exam: normal inspection Extremity: normal range of motion, non-tender Neurologic: no motor/sensory deficits Skin Exam: normal color - erythema and tenderness to right great toe with scant dried blood anteriormedial corner nail Progress - Progress Progress: 03/14/20 06:37 A/P-Toe Pain Ingrown Toenail-tylenol Keflex Doxycycline d/c to dialysis 03/14/20 06:37 PPE worn-N95 surgical mask with attached face shield over N95 goggle gloves and face shield over that Departure - Departure Clinical Impression: Ingrown nail of great toe of right foot Toe pain Qualifiers: Laterality: right Qualified Code(s): M79.674 - Pain in right toe(s) Disposition: Discharge to Home or Self Care Condition: Good Departure Forms: ED Discharge - Pt. Copy, Patient Portal Self Enrollment Referrals: PANFILO RIBERA MD [Primary Care Provider] - 1-2 Days Prescriptions: Acetaminophen [Tylenol] 650 mg PO Q6H PRN #30 tab PRN Reason: Pain Cephalexin Monohydrate [Keflex] 500 mg PO Q6H 10 Days #40 cap Doxycycline (Monohydrate) [Doxycycline Monohydrate] 100 mg PO BID 10 Days #20 tab Home Medications: Ambulatory Orders Amlodipine Besylate 5 mg PO DAILY 07/13/13 Clonidine HCl 0.1 mg PO DAILY 07/13/13 Metoprolol Tartrate 50 mg PO DAILY 07/13/13 Insulin Aspart Protamine & Asp [Novolog Mix 70/30 (70-30) 100 Unit/ml] 20 unit SC DAILY 05/25/15 B-Complex W/ C & Folic Acid [Renal-Caitlyn 0.8 mg] 1 tab PO DAILY 08/09/19 Calcium Acetate (Phosphate Bin [Calcium Acetate] 667 mg PO TID 08/09/19 Enalapril Maleate [Vasotec] 20 mg PO DAILY 08/09/19 Acetaminophen W/ Codeine [Tylenol W/ CODEINE #3] 1 ea PO Q8H PRN #15 11/29/19 Bumetanide 11/29/19 Prednisone 50 mg PO DAILY #5 tab 11/29/19 Azithromycin 500 mg PO DAILY #5 tab 12/31/19 Ondansetron Odt [Zofran ODT] 4 mg PO Q8HR PRN #5 tab 12/31/19 Sucralfate Tab [Carafate Tab] 1 gm PO QID #40 tab 12/31/19 Acetaminophen [Tylenol] 650 mg PO Q6H PRN #30 tab 03/14/20 Cephalexin Monohydrate [Keflex] 500 mg PO Q6H 10 Days #40 cap 03/14/20 Doxycycline (Monohydrate) [Doxycycline Monohydrate] 100 mg PO BID 10 Days #20 tab 03/14/20
[2020-03-14] MEDS ORDERED: DOXYCYCLINE HYCLATE CAP 100 MG CAP PO ONE (06:44)
[2020-03-14] MEDS ORDERED: CEPHALEXIN MONOHYDRATE 500 MG CAP PO ONE (06:44)
[2020-03-14] MEDS ORDERED: ONDANSETRON ODT 8 MG TAB SL ONE (06:53)
[2020-03-14 07:01] VITALS: BP 164/72
== END 2020-03-14 07:07 | disposition home or self-care (01) ==
LOC: ER 06:09
DX: L60.0 Ingrowing nail (principal); I12.0 Hypertensive chronic kidney disease with stage 5 chronic kidney disease or end stage renal disease; N18.6 End stage renal disease; E11.22 Type 2 diabetes mellitus with diabetic chronic kidney disease; I25.2 Old myocardial infarction; Z79.4 Long term (current) use of insulin

== ENCOUNTER 2020-03-16 04:48 | Emergency (ER) | payer MEDICARE, MEDICAID ==
[2020-03-16 04:57] VITALS: TEMP 96.6; O2SAT 100
[2020-03-16] MEDS ORDERED: MECLIZINE HCL 12.5 MG TAB PO ONE (05:06)
--- NOTE | 2020-03-16 05:17 | ED.PDOC ---
History of Present Illness - General Chief Complaint: General Stated Complaint: weak and shakey since 0400 Time Seen by Provider: 03/16/20 05:02 Source: patient, RN notes reviewed, Vital Signs reviewed, EMS notes reviewed, EMS, old records Exam Limitations: no limitations - History of Present Illness Initial Comments: Pt is a 74 yo male with PMH of CAD, CHF, HTN, DM and ESRD on HD T// who presents to ED via EMS for generalized weakness and feeling shaky. States he awoke at 0400 this morning to go to dialysis and felt generalized weakness and felt "shaky" when he was walking and decided to call EMS to come to ED for evaluation. He denies CP, SOB, nausea, vomiting, diarrhea, OCASIO, fever, chills or neck stiffness. States he was scheduled to go to dialysis at 0600 this morning. He missed dialysis 2 days ago because he was in ED for toe pain. Last dialyzed on 03/11. Pt ambulated to bathroom on arrival to ED to give urine specimen without difficulty, but was unable to produce specimen. Allergies/Adverse Reactions: Allergies Tetanus Toxoid Allergy (Verified 03/16/20 04:57) Swelling of extremities Home Medications: Ambulatory Orders RX: Amlodipine Besylate 5 mg PO DAILY 07/13/13 RX: Clonidine HCl 0.1 mg PO DAILY 07/13/13 RX: Metoprolol Tartrate 50 mg PO DAILY 07/13/13 RX: Insulin Aspart Protamine & Asp [Novolog Mix 70/30 (70-30) 100 Unit/ml] 20 unit SC DAILY 05/25/15 B-Complex W/ C & Folic Acid [Renal-Caitlyn 0.8 mg] 1 tab PO DAILY 08/09/19 Calcium Acetate (Phosphate Bin [Calcium Acetate] 667 mg PO TID 08/09/19 Enalapril Maleate [Vasotec] 20 mg PO DAILY 08/09/19 Acetaminophen W/ Codeine [Tylenol W/ CODEINE #3] 1 ea PO Q8H PRN #15 11/29/19 Bumetanide 11/29/19 RX: Prednisone 50 mg PO DAILY #5 tab 11/29/19 Ondansetron Odt [Zofran ODT] 4 mg PO Q8HR PRN #5 tab 12/31/19 RX: Azithromycin 500 mg PO DAILY #5 tab 12/31/19 Sucralfate Tab [Carafate Tab] 1 gm PO QID #40 tab 12/31/19 Acetaminophen [Tylenol] 650 mg PO Q6H PRN #30 tab 03/14/20 Cephalexin Monohydrate [Keflex] 500 mg PO Q6H 10 Days #40 cap 03/14/20 RX: Doxycycline (Monohydrate) [Doxycycline Monohydrate] 100 mg PO BID 10 Days #20 tab 03/14/20 Review of Systems - Review of Systems Constitutional: States: other - Feels shaky. Denies: chills, fever EENTM: Denies: blurred vision, double vision, ear pain Respiratory: Denies: cough, short of breath Cardiology: Denies: chest pain, edema, palpitations, syncope Gastrointestinal/Abdominal: Denies: abdominal pain, diarrhea, nausea, vomiting Genitourinary: Denies: dysuria, frequency, hematuria Musculoskeletal: Denies: back pain, neck pain Skin: States: no symptoms reported Neurological: States: other - dizzy, shaky. Denies: headache Hematologic/Lymphatic: Denies: easy bleeding, easy bruising All other Systems: Reviewed and Negative Past Medical History (General) - Patient Medical History Hx Seizures: No Hx Stroke: No Hx Dementia: No Hx Asthma: No Hx of COPD: No Hx Cardiac Disorders: Yes - Hx [place] Hx Congestive Heart Failure: Yes Hx Pacemaker: No Hx Hypertension: Yes Hx Thyroid Disease: No Hx Diabetes: Yes - IDDM Hx Gastroesophageal Reflux: No Hx Renal Disease: Yes - on dialysis, shunt in upper left arm, Tues, Thur, Sat Hx Cancer: No Hx of HIV: No Hx Hepatitis C: No Hx MRSA: No MRSA Source:: Wound - Vaccination History Hx Tetanus, Diphtheria Vaccination: No - allergic Hx Influenza Vaccination: Yes Hx Pneumococcal Vaccination: Yes - Social History Hx Tobacco Use: No Hx Chewing Tobacco Use: No Hx Alcohol Use: No Hx Substance Use: No Hx Substance Use Treatment: No Hx Depression: No Hx Physical Abuse: No Hx Emotional Abuse: No Hx Suspected Abuse: No - Female History Patient : No Family Medical History - Family History Father Family History: Unknown Living Status: Age at (years of age): 62 Cause of : "blood poisoning" Hx Family Asthma: No Hx Family Congestive Heart Failure: No Hx Family Hypertension: No Hx Family Stroke: No Hx Cardiac Disease: No Hx Family Diabetes: Yes - mom Hx Family Cancer: No Physical Exam - Physical Exam General Appearance: Alert, Comfortable, No apparent distress, Well Developed Eye Exam: bilateral normal - PERRL, EOMI Ears, Nose, Throat: normal pharynx Neck: non-tender, full range of motion, supple Respiratory: chest non-tender, lungs clear, normal breath sounds, no respiratory distress Cardiovascular/Chest: regular rate, rhythm, no edema, no murmur, other - LUE fistula with + thrill Gastrointestinal/Abdominal: non tender, soft, no pulsatile mass Back Exam: no CVA tenderness, no vertebral tenderness Extremity: normal range of motion, non-tender, normal inspection, no pedal edema, no calf tenderness 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 5/5 strength in all extremities Skin Exam: normal color, warm/dry Progress - Progress Progress: 03/16/20 05:57 Pt has h/o ESRD, CAD, HTN, CHF, COPD who presents to ED after waking up this morning feeling dizzy, shaky and generalized weakness. He has not gone to dialysis for 5 days and was scheduled to be at dialysis at 0500 this morning. Denies CP or SOB. EKG shows peaked T waves and signs of hyperkalemia. Pt treated with Calcium Gluconate, Bicarb, insulin and D50 while awaiting labs. Pt rarely makes urine so not given Lasix. Labs returned with potassium of 7.4 and mildly elevated troponin of 0.14. Pt treated with hyperkalemia cocktail and will plan to transfer for emergent dialysis due to hyperkalemia. 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 CT head orered here due to dizziness of unknown cause initially, but CT scanner now down and CT not performed. 03/16/20 06:10 D/W Dr. Harding, ER Physician at [facility], via transfer line and accepts pt to ED. 03/16/20 06:33 EMS here to transport. 03/16/20 06:35 - Results/Orders Results/Orders: EKG at 0516--sinus rhythm with 1st degree AV block, rate 88, wide QRS, nonspecific ST abnormality. Compared with EKG 12/31/19, pt now has widened QRS and peaked T waves. Will treat with calcium and Bicarb, insulin and glucose. EKG at 0620--sinus rhythm with 1st degree AV block, rate 79, wide QRS, some improvement of peaked T waves compared to previous EXAM DESCRIPTION: Chest,1 View CLINICAL HISTORY: Dizziness COMPARISON: 12/31/2019 FINDINGS: Single frontal view of the chest. Cardiomediastinal silhouette: Atherosclerotic calcification of the thoracic aorta. Cardiomegaly. Lungs: No focal airspace consolidation, pneumothorax, or pleural effusion. Pulmonary vascular congestion. Bones: No acute osseous abnormality. Upper abdomen: No abnormality identified. IMPRESSION: 1. Cardiomegaly with pulmonary vascular congestion. 03/16/20 05:05 IV:Start .ONCE 03/16/20 05:07 URINALYSIS Stat 03/16/20 05:15 EKG .ONCE 03/16/20 05:41 EKG Assessment ONCE 03/16/20 05:45 EKG .ONCE 03/16/20 06:00 Calcium Chloride (Dihydrate) [Calcium Chloride] 5 gm IV ONCE Laboratory Results - last 24 hr 03/16/20 03/16/20 03/16/20 05:20 05:20 05:20 WBC 14.7 H RBC 3.81 L Hgb 11.9 L Hct 37.2 L MCV 97.7 H MCH 31.4 H MCHC 32.1 L RDW 23.2 H Plt Count 202 MPV 9.1 Absolute Neuts (auto) 11.80 H Absolute Lymphs (auto) 1.70 Absolute Monos (auto) 0.60 Absolute Eos (auto) 0.40 Absolute Basos (auto) 0.10 Neutrophils % 80.7 H Lymphocytes % 11.5 L Monocytes % 4.2 Eosinophils % 2.9 Basophils % 0.7 Normal RBC Morphology Stain quality accept Sodium 144 Potassium 7.4 H* Chloride 110 Carbon Dioxide 14 L* Anion Gap 27.4 H BUN 45 H Creatinine 10.96 H* BUN/Creatinine Ratio 4.1 L Random Glucose 124 H Serum Osmolality 299.8 H Calcium 7.2 L Total Bilirubin 1.0 AST 14 ALT 13 Alkaline Phosphatase 84 Troponin I 0.14 H* Serum Total Protein 7.9 Albumin 3.1 L Globulin 4.8 H Albumin/Globulin Ratio 0.6 L Departure - Departure Clinical Impression: Hyperkalemia, ESRD (end stage renal disease), Generalized weakness, Essential hypertension Time of Disposition: 06:15 Disposition: Transfer to Hospital Condition: Serious Departure Forms: ED Discharge - Pt. Copy, Patient Portal Self Enrollment Referrals: PANFILO RIBERA MD [Primary Care Provider] - 1-2 Weeks Home Medications: Ambulatory Orders RX: Amlodipine Besylate 5 mg PO DAILY 07/13/13 RX: Clonidine HCl 0.1 mg PO DAILY 07/13/13 RX: Metoprolol Tartrate 50 mg PO DAILY 07/13/13 RX: Insulin Aspart Protamine & Asp [Novolog Mix 70/30 (70-30) 100 Unit/ml] 20 unit SC DAILY 05/25/15 B-Complex W/ C & Folic Acid [Renal-Caitlyn 0.8 mg] 1 tab PO DAILY 08/09/19 Calcium Acetate (Phosphate Bin [Calcium Acetate] 667 mg PO TID 08/09/19 Enalapril Maleate [Vasotec] 20 mg PO DAILY 08/09/19 Acetaminophen W/ Codeine [Tylenol W/ CODEINE #3] 1 ea PO Q8H PRN #15 11/29/19 Bumetanide 11/29/19 RX: Prednisone 50 mg PO DAILY #5 tab 11/29/19 Ondansetron Odt [Zofran ODT] 4 mg PO Q8HR PRN #5 tab 12/31/19 RX: Azithromycin 500 mg PO DAILY #5 tab 12/31/19 Sucralfate Tab [Carafate Tab] 1 gm PO QID #40 tab 12/31/19 Acetaminophen [Tylenol] 650 mg PO Q6H PRN #30 tab 03/14/20 Cephalexin Monohydrate [Keflex] 500 mg PO Q6H 10 Days #40 cap 03/14/20 RX: Doxycycline (Monohydrate) [Doxycycline Monohydrate] 100 mg PO BID 10 Days #20 tab 03/14/20 Critical Care Note - Critical Care Note Total Time (mins): 35 Comments: Pt with hyperkalemia and EKG changes. Given critical care meds for hyperkalemia with frequent rechecks and diagnostic cardiac sonographer readings to evaluate for dysrrhythmia Transfer to Outside Facility - Transfer Information Decision to Transfer Time: 06:02 Reason for Transfer: Need for dialysis emergently Accepting Facility: [facility]
[2020-03-16] MEDS ORDERED: SODIUM BICARBONATE VIAL 50 MEQ/50 ML VIAL IV ONE (05:35)
[2020-03-16] MEDS ORDERED: DEXTROSE 50% 25 GM/50 ML SYG IV ONE (05:40)
[2020-03-16] MEDS ORDERED: INSULIN, REG.(HUMAN) 100 U/ML VIAL IV ONE (05:40)
[2020-03-16] MEDS ORDERED: CALCIUM CHLORIDE INJ 100 MG/ML SYG IV ONE ×2 (05:44→05:49)
--- NOTE | 2020-03-16 05:51 | RAD ---
EXAM DESCRIPTION: Chest,1 View CLINICAL HISTORY: Dizziness COMPARISON: 12/31/2019 FINDINGS: Single frontal view of the chest. Cardiomediastinal silhouette: Atherosclerotic calcification of the thoracic aorta. Cardiomegaly. Lungs: No focal airspace consolidation, pneumothorax, or pleural effusion. Pulmonary vascular congestion. Bones: No acute osseous abnormality. Upper abdomen: No abnormality identified. IMPRESSION: 1. Cardiomegaly with pulmonary vascular congestion. Electronically signed by: Carlos Alberto Block 03/16/2020 5:50 AM CDT
[2020-03-16] MEDS ORDERED: CALCIUM GLUCONATE INJ 1 GM/10 ML VIAL IV ONE (05:52)
[2020-03-16] MEDS ORDERED: CALCIUM CHLORIDE IV SCH (06:00)
[2020-03-16 06:19] VITALS: BP 183/74
== END 2020-03-16 06:35 | disposition short-term general hospital (02) ==
LOC: ER 04:48
DX: E87.5 Hyperkalemia (principal); R53.1 Weakness; I50.9 Heart failure, unspecified; I12.0 Hypertensive chronic kidney disease with stage 5 chronic kidney disease or end stage renal disease; N18.6 End stage renal disease; E11.22 Type 2 diabetes mellitus with diabetic chronic kidney disease; Z99.2 Dependence on renal dialysis; Z79.4 Long term (current) use of insulin; Z79.899 Other long term (current) drug therapy
CPT/HCPCS: 36415; 71045; 80053; 84484; 85025; 93005; J7799

== ENCOUNTER 2020-03-20 23:25 | Emergency (ER) | payer MEDICARE, MEDICAID ==
[2020-03-20 23:42] VITALS: TEMP 97.1; O2SAT 98
[2020-03-20] MEDS ORDERED: HYDROcodone 7.5MG/APAP 325MG 1 EA TAB PO ONE (23:44)
--- NOTE | 2020-03-20 23:47 | ED.PDOC ---
History of Present Illness - General Chief Complaint: General Stated Complaint: pain to bilateral great toes Time Seen by Provider: 03/20/20 23:26 Source: patient Exam Limitations: no limitations - History of Present Illness Initial Comments: The patient is a 74-year-old male presented emergency room secondary to pain at the very tips of basically all of his toes. On examination the patient actually has ecchymosis from pressure from some source to the tip of all the toes. This is most likely from shoes that he wears. This is been bothering him for the last week. No real evidence of infection at this time. This does not look like gout for now. The patient is keep follow-up with his dialysis. Blood pressure is elevated but he is in pain. He is also very anxious. He reports that he was taken off of his last blood pressure medication not too long ago for hypotension. Timing/Duration: 1 week Severity: severe Improving Factors: nothing Worsening Factors: movement Associated Symptoms: denies symptoms Allergies/Adverse Reactions: Allergies Tetanus Toxoid Allergy (Verified 03/20/20 23:42) Swelling of extremities Home Medications: Ambulatory Orders Amlodipine Besylate 5 mg PO DAILY 07/13/13 Clonidine HCl 0.1 mg PO DAILY 07/13/13 Metoprolol Tartrate 50 mg PO DAILY 07/13/13 Insulin Aspart Protamine & Asp [Novolog Mix 70/30 (70-30) 100 Unit/ml] 20 unit SC DAILY 05/25/15 B-Complex W/ C & Folic Acid [Renal-Caitlyn 0.8 mg] 1 tab PO DAILY 08/09/19 Calcium Acetate (Phosphate Bin [Calcium Acetate] 667 mg PO TID 08/09/19 Enalapril Maleate [Vasotec] 20 mg PO DAILY 08/09/19 Acetaminophen W/ Codeine [Tylenol W/ CODEINE #3] 1 ea PO Q8H PRN #15 11/29/19 Bumetanide 11/29/19 Prednisone 50 mg PO DAILY #5 tab 11/29/19 Azithromycin 500 mg PO DAILY #5 tab 12/31/19 Ondansetron Odt [Zofran ODT] 4 mg PO Q8HR PRN #5 tab 12/31/19 Sucralfate Tab [Carafate Tab] 1 gm PO QID #40 tab 12/31/19 Acetaminophen [Tylenol] 650 mg PO Q6H PRN #30 tab 03/14/20 Cephalexin Monohydrate [Keflex] 500 mg PO Q6H 10 Days #40 cap 03/14/20 Doxycycline (Monohydrate) [Doxycycline Monohydrate] 100 mg PO BID 10 Days #20 tab 03/14/20 Review of Systems - Review of Systems Constitutional: States: no symptoms reported EENTM: States: no symptoms reported Respiratory: States: no symptoms reported Cardiology: States: no symptoms reported Gastrointestinal/Abdominal: States: no symptoms reported Genitourinary: States: no symptoms reported Musculoskeletal: States: see HPI Skin: States: see HPI Neurological: States: no symptoms reported Endocrine: States: no symptoms reported All other Systems: No Change from Baseline Past Medical History (General) - Patient Medical History Hx Seizures: No Hx Stroke: No Hx Dementia: No Hx Asthma: No Hx of COPD: No Hx Cardiac Disorders: Yes - Hx [place] Hx Congestive Heart Failure: Yes Hx Pacemaker: No Hx Hypertension: Yes Hx Thyroid Disease: No Hx Diabetes: Yes - IDDM Hx Gastroesophageal Reflux: No Hx Renal Disease: Yes - on dialysis, shunt in upper left arm, Tues, Thur, Sat Hx Cancer: No Hx of HIV: No Hx Hepatitis C: No Hx MRSA: No MRSA Source:: Wound Surgical History: appendectomy - Vaccination History Hx Tetanus, Diphtheria Vaccination: No - allergic Hx Influenza Vaccination: Yes Hx Pneumococcal Vaccination: Yes - Social History Hx Tobacco Use: No Hx Chewing Tobacco Use: No Hx Alcohol Use: No Hx Substance Use: No Hx Substance Use Treatment: No Hx Depression: No Hx Physical Abuse: No Hx Emotional Abuse: No Hx Suspected Abuse: No - Female History Patient : No Family Medical History - Family History Father Family History: Unknown Living Status: Age at (years of age): 64 Cause of : "blood poisoning" Hx Family Asthma: No Hx Family Congestive Heart Failure: No Hx Family Hypertension: No Hx Family Stroke: No Hx Cardiac Disease: No Hx Family Diabetes: Yes - mom Hx Family Cancer: No Physical Exam - Physical Exam General Appearance: Alert, Anxious Eye Exam: bilateral normal Ears, Nose, Throat: hearing grossly normal, normal pharynx Neck: full range of motion, supple Respiratory: lungs clear, normal breath sounds, no respiratory distress, no accessory muscle use Cardiovascular/Chest: normal peripheral pulses, no edema, other - Regular rate Peripheral Pulses: radial,right: 2+, radial,left: 2+, dorsalis pedis,right: 1+, dorsalis pedis,left: 1+ Gastrointestinal/Abdominal: non tender, soft Rectal Exam: deferred Extremity: normal range of motion, no pedal edema, normal capillary refill, other - Tenderness to the palpation to the tips of the toes the ecchymosis is. With the bruising is. No evidence of infection. 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 This is in the area where there is bruising to the tip of the toes. These are obviously pressure sores of some sort. This is most likely coming from a pair of shoes or from covers being tucked in too closely. He will need to find the source and deal with it. The patient is being given a dose of pain medication for tonight. He needs to keep his follow-up for dialysis. The patient does have elevated blood pressure here but is asymptomatic from the blood pressure. This is most likely reactive due to pain, as he was recently taken off of the blood pressure medication for blood pressures falling too low. He does need to follow blood pressures at least once a day when he is good and relaxed to make sure he is not having a rise in his baseline blood pressures. ER warnings are given for any worsening. [email or web address] [id number] Departure - Departure Clinical Impression: Reactive hypertension Pressure injury of skin of toe Qualifiers: Pressure injury stage: stage 2 Laterality: unspecified laterality Qualified Code(s): L89.892 - Pressure ulcer of other site, stage 2 Disposition: Discharge to Home or Self Care Condition: Fair Departure Forms: ED Discharge - Pt. Copy, Patient Portal Self Enrollment Diet: diabetic diet Activity: increase activity as tolerated Referrals: PANFILO RIBERA MD [Primary Care Provider] - 1-2 Weeks Home Medications: Ambulatory Orders Amlodipine Besylate 5 mg PO DAILY 07/13/13 Clonidine HCl 0.1 mg PO DAILY 07/13/13 Metoprolol Tartrate 50 mg PO DAILY 07/13/13 Insulin Aspart Protamine & Asp [Novolog Mix 70/30 (70-30) 100 Unit/ml] 20 unit SC DAILY 05/25/15 B-Complex W/ C & Folic Acid [Renal-Caitlyn 0.8 mg] 1 tab PO DAILY 08/09/19 Calcium Acetate (Phosphate Bin [Calcium Acetate] 667 mg PO TID 08/09/19 Enalapril Maleate [Vasotec] 20 mg PO DAILY 08/09/19 Acetaminophen W/ Codeine [Tylenol W/ CODEINE #3] 1 ea PO Q8H PRN #15 11/29/19 Bumetanide 11/29/19 Prednisone 50 mg PO DAILY #5 tab 11/29/19 Azithromycin 500 mg PO DAILY #5 tab 12/31/19 Ondansetron Odt [Zofran ODT] 4 mg PO Q8HR PRN #5 tab 12/31/19 Sucralfate Tab [Carafate Tab] 1 gm PO QID #40 tab 12/31/19 Acetaminophen [Tylenol] 650 mg PO Q6H PRN #30 tab 03/14/20 Cephalexin Monohydrate [Keflex] 500 mg PO Q6H 10 Days #40 cap 03/14/20 Doxycycline (Monohydrate) [Doxycycline Monohydrate] 100 mg PO BID 10 Days #20 tab 03/14/20 Additional Instructions: The patient is a 74-year-old male presenting to the emergency room secondary to pain to the very tip of all of his toes. This is in the area where there is bruising to the tip of the toes. These are obviously pressure sores of some sort. This is most likely coming from a pair of shoes or from covers being tucked in too closely. He will need to find the source and deal with it. The patient is being given a dose of pain medication for tonight. He needs to keep his follow-up for dialysis. The patient does have elevated blood pressure here but is asymptomatic from the blood pressure. This is most likely reactive due to pain, as he was recently taken off of the blood pressure medication for blood pressures falling too low. He does need to follow blood pressures at least once a day when he is good and relaxed to make sure he is not having a rise in his baseline blood pressures. ER warnings are given for any worsening.
[2020-03-20 23:55] VITALS: BP 190/95
== END 2020-03-20 23:58 | disposition home or self-care (01) ==
LOC: ER 23:25
DX: L89.892 Pressure ulcer of other site, stage 2 (principal); I12.9 Hypertensive chronic kidney disease with stage 1 through stage 4 chronic kidney disease, or unspecified chronic kidney disease; E11.22 Type 2 diabetes mellitus with diabetic chronic kidney disease; N18.9 Chronic kidney disease, unspecified; I50.9 Heart failure, unspecified; I25.2 Old myocardial infarction; Z79.4 Long term (current) use of insulin; Z79.899 Other long term (current) drug therapy

== ENCOUNTER 2020-03-22 14:14 | Emergency (ER) | payer MEDICARE, MEDICAID ==
[2020-03-22] MEDS: HYDROcodone 7.5MG/APAP 325MG 1 EA TAB PO ONE (15:47)
--- NOTE | 2020-03-22 17:11 | ED.PDOC ---
History of Present Illness - General Chief Complaint: General Stated Complaint: burning to feet Time Seen by Provider: 03/22/20 14:39 Source: patient Exam Limitations: no limitations - History of Present Illness Initial Comments: 74 y/o male with DM, vascular disease, and ESRD on dialysis reports very severe burning to both feet, eapecially to toes. He has never had pain this bad in his feet. He said his last A1c was 5.8. Allergies/Adverse Reactions: Allergies Tetanus Toxoid Allergy (Verified 03/20/20 23:42) Swelling of extremities Home Medications: Ambulatory Orders Amlodipine Besylate 5 mg PO DAILY 07/13/13 Clonidine HCl 0.1 mg PO DAILY 07/13/13 Metoprolol Tartrate 50 mg PO DAILY 07/13/13 Insulin Aspart Protamine & Asp [Novolog Mix 70/30 (70-30) 100 Unit/ml] 20 unit SC DAILY 05/25/15 B-Complex W/ C & Folic Acid [Renal-Caitlyn 0.8 mg] 1 tab PO DAILY 08/09/19 Calcium Acetate (Phosphate Bin [Calcium Acetate] 667 mg PO TID 08/09/19 Enalapril Maleate [Vasotec] 20 mg PO DAILY 08/09/19 Acetaminophen W/ Codeine [Tylenol W/ CODEINE #3] 1 ea PO Q8H PRN #15 11/29/19 Bumetanide 11/29/19 Prednisone 50 mg PO DAILY #5 tab 11/29/19 Azithromycin 500 mg PO DAILY #5 tab 12/31/19 Ondansetron Odt [Zofran ODT] 4 mg PO Q8HR PRN #5 tab 12/31/19 Sucralfate Tab [Carafate Tab] 1 gm PO QID #40 tab 12/31/19 Acetaminophen [Tylenol] 650 mg PO Q6H PRN #30 tab 03/14/20 Cephalexin Monohydrate [Keflex] 500 mg PO Q6H 10 Days #40 cap 03/14/20 Doxycycline (Monohydrate) [Doxycycline Monohydrate] 100 mg PO BID 10 Days #20 tab 03/14/20 HYDROcodone 5MG/APAP 325MG [[place] 5/325] 1 ea PO .Q4H PRN #15 tab 03/22/20 Review of Systems - Review of Systems Constitutional: States: no symptoms reported EENTM: States: no symptoms reported Respiratory: States: no symptoms reported Cardiology: States: no symptoms reported Gastrointestinal/Abdominal: States: no symptoms reported Genitourinary: States: no symptoms reported Musculoskeletal: States: other - both feet burn and hurt symmetrically Skin: States: change in color - feet are violaceous Neurological: States: numbness, paresthesia, tingling - feet Endocrine: States: no symptoms reported Past Medical History (General) - Patient Medical History Hx Seizures: No Hx Stroke: No Hx Dementia: No Hx Asthma: No Hx of COPD: No Hx Cardiac Disorders: Yes - Hx [place] Hx Congestive Heart Failure: Yes Hx Pacemaker: No Hx Hypertension: Yes Hx Thyroid Disease: No Hx Diabetes: Yes - IDDM Hx Gastroesophageal Reflux: No Hx Renal Disease: Yes - on dialysis, shunt in upper left arm, Tues, Thur, Sat Hx Cancer: No Hx of HIV: No Hx Hepatitis C: No Hx MRSA: No MRSA Source:: Wound Surgical History: appendectomy - Vaccination History Hx Tetanus, Diphtheria Vaccination: No - allergic Hx Influenza Vaccination: Yes Hx Pneumococcal Vaccination: Yes - Social History Hx Tobacco Use: No Hx Chewing Tobacco Use: No Hx Alcohol Use: No Hx Substance Use: No Hx Substance Use Treatment: No Hx Depression: No Hx Physical Abuse: No Hx Emotional Abuse: No Hx Suspected Abuse: No - Female History Patient : No Family Medical History - Family History Father Family History: Unknown Living Status: Age at (years of age): 62 Cause of : "blood poisoning" Hx Family Asthma: No Hx Family Congestive Heart Failure: No Hx Family Hypertension: No Hx Family Stroke: No Hx Cardiac Disease: No Hx Family Diabetes: Yes - mom Hx Family Cancer: No Physical Exam - Physical Exam General Appearance: Alert, No apparent distress Ears, Nose, Throat: normal ENT inspection Neck: non-tender, full range of motion, supple, normal inspection Respiratory: lungs clear, normal breath sounds, no respiratory distress Cardiovascular/Chest: regular rate, rhythm, no gallop, no JVD, no murmur Peripheral Pulses: dorsalis pedis,right: 0, dorsalis pedis,left: 0, posterior tibialis,right: 1+, posterior tibialis,left: 1+ Gastrointestinal/Abdominal: non tender, soft, no organomegaly Back Exam: normal inspection Extremity: no pedal edema, slow capillary refill Departure - Departure Clinical Impression: Vasculopathy, Hyperphosphatemia, Hypocalcemia, Chronic renal failure, stage 5 Disposition: Discharge to Home or Self Care Condition: Good Departure Forms: ED Discharge - Pt. Copy, Patient Portal Self Enrollment Instructions: Diabetic Neuropathy Referrals: PANFILO RIBERA MD [Primary Care Provider] - 1-2 Weeks Prescriptions: HYDROcodone 5MG/APAP 325MG [[place] 5/325] 1 ea PO .Q4H PRN #15 tab PRN Reason: Pain Home Medications: Ambulatory Orders Amlodipine Besylate 5 mg PO DAILY 07/13/13 Clonidine HCl 0.1 mg PO DAILY 07/13/13 Metoprolol Tartrate 50 mg PO DAILY 07/13/13 Insulin Aspart Protamine & Asp [Novolog Mix 70/30 (70-30) 100 Unit/ml] 20 unit SC DAILY 05/25/15 B-Complex W/ C & Folic Acid [Renal-Caitlyn 0.8 mg] 1 tab PO DAILY 08/09/19 Calcium Acetate (Phosphate Bin [Calcium Acetate] 667 mg PO TID 08/09/19 Enalapril Maleate [Vasotec] 20 mg PO DAILY 08/09/19 Acetaminophen W/ Codeine [Tylenol W/ CODEINE #3] 1 ea PO Q8H PRN #15 11/29/19 Bumetanide 11/29/19 Prednisone 50 mg PO DAILY #5 tab 11/29/19 Azithromycin 500 mg PO DAILY #5 tab 12/31/19 Ondansetron Odt [Zofran ODT] 4 mg PO Q8HR PRN #5 tab 12/31/19 Sucralfate Tab [Carafate Tab] 1 gm PO QID #40 tab 12/31/19 Acetaminophen [Tylenol] 650 mg PO Q6H PRN #30 tab 03/14/20 Cephalexin Monohydrate [Keflex] 500 mg PO Q6H 10 Days #40 cap 03/14/20 Doxycycline (Monohydrate) [Doxycycline Monohydrate] 100 mg PO BID 10 Days #20 tab 03/14/20 HYDROcodone 5MG/APAP 325MG [[place] 5/325] 1 ea PO .Q4H PRN #15 tab 03/22/20
[2020-03-22 17:27] VITALS: BP 178/85; TEMP 97.9; O2SAT 98
== END 2020-03-22 17:26 | disposition home or self-care (01) ==
LOC: ER 14:14
DX: M31.9 Necrotizing vasculopathy, unspecified (principal); E83.39 Other disorders of phosphorus metabolism; E83.51 Hypocalcemia; I13.2 Hypertensive heart and chronic kidney disease with heart failure and with stage 5 chronic kidney disease, or end stage renal disease; E11.22 Type 2 diabetes mellitus with diabetic chronic kidney disease; I50.9 Heart failure, unspecified; N18.6 End stage renal disease; Z79.899 Other long term (current) drug therapy; Z99.2 Dependence on renal dialysis

== ENCOUNTER 2020-03-23 04:16 | Emergency (ER) | payer MEDICARE, MEDICAID ==
[2020-03-23 04:32] VITALS: TEMP 96.6
[2020-03-23] MEDS: ONDANSETRON ODT 8 MG TAB SL ONE (04:52)
[2020-03-23 05:41] VITALS: O2SAT 98
[2020-03-23] MEDS: HYDROcodone 5MG/APAP 325MG 1 EA TAB PO ONE (06:00)
--- NOTE | 2020-03-23 06:03 | ED.PDOC ---
History of Present Illness - General Chief Complaint: GI Problem Stated Complaint: nausea and vomiting Time Seen by Provider: 03/23/20 05:47 Information Source: patient Exam Limitations: no limitations - History of Present Illness Initial Comments: 74 y/o here earlier for bilateral foot pain went home and several hr later began to have vomiting. He had a prescription for norco but had not gotten it filled yet. He denies fever/chills, diarrhea, SOB. he is a dialysis patient Abdominal Pain Onset Location: other - no abd pain Timing/Duration: 7-24 hours Improving Factors: medication Associated Symptoms: nausea/vomiting Review of Systems - Review of Systems Constitutional: States: see HPI EENTM: States: no symptoms reported Respiratory: States: no symptoms reported Cardiology: States: no symptoms reported Gastrointestinal/Abdominal: States: nausea, vomiting Genitourinary: States: other - oliguria Musculoskeletal: States: no symptoms reported, other - both feet hurt Hematologic/Lymphatic: States: anemia Past Medical History (General) - Patient Medical History Hx Seizures: No Hx Stroke: No Hx Dementia: No Hx Asthma: No Hx of COPD: No Hx Cardiac Disorders: Yes - Hx [place] Hx Congestive Heart Failure: Yes Hx Pacemaker: No Hx Hypertension: Yes Hx Thyroid Disease: No Hx Diabetes: Yes Hx Gastroesophageal Reflux: No Hx Renal Disease: Yes - on dialysis, shunt in upper left arm, Tues, Thur, Sat Hx Cancer: No Hx of HIV: No Hx Hepatitis C: No Hx MRSA: No MRSA Source:: Wound Surgical History: other - Vaccination History Hx Tetanus, Diphtheria Vaccination: No - allergic Hx Influenza Vaccination: Yes Hx Pneumococcal Vaccination: Yes Immunizations Up to Date: Yes - Social History Hx Tobacco Use: No Hx Chewing Tobacco Use: No Hx Alcohol Use: No Hx Substance Use: No Hx Substance Use Treatment: No Hx Depression: No Feels Threatened In Home Enviroment: No Feels Threatened In a Relationship: No Hx Physical Abuse: No Hx Emotional Abuse: No Hx Suspected Abuse: No - Activities of Daily Living Hospice Agency (if applicable):: None - Female History Patient is a Female of Child Bearing Age (10 -59 yrs old): No Patient : No Family Medical History - Family History Father Family History: Unknown Living Status: Age at (years of age): 62 Cause of : "blood poisoning" Hx Family Asthma: No Hx Family Congestive Heart Failure: No Hx Family Hypertension: No Hx Family Stroke: No Hx Cardiac Disease: No Hx Family Diabetes: Yes - mom Hx Family Cancer: No Physical Exam - Physical Exam General Appearance: Alert, Anxious Eyes, Ears, Nose, Throat Exam: normal ENT inspection Neck: non-tender, full range of motion, supple Respiratory: normal breath sounds, no respiratory distress, no accessory muscle use, respiratory distress Cardiovascular/Chest: regular rate, rhythm, no edema, no gallop, no murmur Gastrointestinal/Abdominal: normal bowel sounds, non tender, soft, no organomegaly Extremity: other - both feet are purplish Neurologic: alert, normal mood/affect, oriented x 3, abnormal gait - feet hurt from vasculopathy and/or neuropathy Departure - Departure Clinical Impression: Vomiting alone Disposition: Discharge to Home or Self Care Condition: Good Departure Forms: ED Discharge - Pt. Copy, Patient Portal Self Enrollment Instructions: DI for Gastritis Referrals: PANFILO RIBERA MD [Primary Care Provider] - 1-2 Weeks Home Medications: Ambulatory Orders Amlodipine Besylate 5 mg PO DAILY 07/13/13 Clonidine HCl 0.1 mg PO DAILY 07/13/13 Metoprolol Tartrate 50 mg PO DAILY 07/13/13 Insulin Aspart Protamine & Asp [Novolog Mix 70/30 (70-30) 100 Unit/ml] 20 unit SC DAILY 05/25/15 B-Complex W/ C & Folic Acid [Renal-Caitlyn 0.8 mg] 1 tab PO DAILY 08/09/19 Calcium Acetate (Phosphate Bin [Calcium Acetate] 667 mg PO TID 08/09/19 Enalapril Maleate [Vasotec] 20 mg PO DAILY 08/09/19 Acetaminophen W/ Codeine [Tylenol W/ CODEINE #3] 1 ea PO Q8H PRN #15 11/29/19 Bumetanide 11/29/19 Prednisone 50 mg PO DAILY #5 tab 11/29/19 Azithromycin 500 mg PO DAILY #5 tab 12/31/19 Ondansetron Odt [Zofran ODT] 4 mg PO Q8HR PRN #5 tab 12/31/19 Sucralfate Tab [Carafate Tab] 1 gm PO QID #40 tab 12/31/19 Acetaminophen [Tylenol] 650 mg PO Q6H PRN #30 tab 03/14/20 Cephalexin Monohydrate [Keflex] 500 mg PO Q6H 10 Days #40 cap 03/14/20 Doxycycline (Monohydrate) [Doxycycline Monohydrate] 100 mg PO BID 10 Days #20 tab 03/14/20 HYDROcodone 5MG/APAP 325MG [[place] 5/325] 1 ea PO .Q4H PRN #15 tab 03/22/20
[2020-03-23 06:10] VITALS: BP 176/68
== END 2020-03-23 07:05 | disposition home or self-care (01) ==
LOC: ER 04:16
DX: R11.10 Vomiting, unspecified (principal); N18.9 Chronic kidney disease, unspecified; I50.9 Heart failure, unspecified; I13.0 Hypertensive heart and chronic kidney disease with heart failure and stage 1 through stage 4 chronic kidney disease, or unspecified chronic kidney disease; E11.22 Type 2 diabetes mellitus with diabetic chronic kidney disease; Z99.2 Dependence on renal dialysis

== ENCOUNTER 2020-03-28 08:59 | Emergency (ER) | payer MEDICARE, MEDICAID ==
[2020-03-28] MEDS ORDERED: SODIUM CHLORIDE 0.9% (FLUSH) 10 ML SYG IV PRN (09:16)
--- NOTE | 2020-03-28 09:28 | ED.PDOC ---
History of Present Illness - General Chief Complaint: GI Problem Stated Complaint: Generalized Weakness Time Seen by Provider: 03/28/20 09:15 Source: patient, RN notes reviewed, Vital Signs reviewed, family - Daughter Exam Limitations: no limitations - History of Present Illness Initial Comments: Patient is a 74-year-old white male who presents with complaints of generalized weakness. Patient complains of dizziness. Patient just finished dialysis when the symptoms came on. He dialyzed for his usual amount of time, 3-1/2 hours. Patient denies any headaches, blurry vision, chest pain, shortness of breath. Patient does have some nausea and vomiting. No diarrhea. Patient also complains of generalized malaise and fatigue. Nothing seems to make the symptoms better. It is worse when he gets up and exerts himself. Timing/Duration: 1-3 hours Severity: moderate Improving Factors: nothing Worsening Factors: movement Associated Symptoms: malaise, nausea/vomiting, weakness Allergies/Adverse Reactions: Allergies Tetanus Toxoid Allergy (Verified 03/20/20 23:42) Swelling of extremities Home Medications: Ambulatory Orders Amlodipine Besylate 5 mg PO DAILY 07/13/13 Clonidine HCl 0.1 mg PO DAILY 07/13/13 Metoprolol Tartrate 50 mg PO DAILY 07/13/13 Insulin Aspart Protamine & Asp [Novolog Mix 70/30 (70-30) 100 Unit/ml] 20 unit SC DAILY 05/25/15 B-Complex W/ C & Folic Acid [Renal-Caitlyn 0.8 mg] 1 tab PO DAILY 08/09/19 Calcium Acetate (Phosphate Bin [Calcium Acetate] 667 mg PO TID 08/09/19 Enalapril Maleate [Vasotec] 20 mg PO DAILY 08/09/19 Acetaminophen W/ Codeine [Tylenol W/ CODEINE #3] 1 ea PO Q8H PRN #15 11/29/19 Bumetanide 11/29/19 Prednisone 50 mg PO DAILY #5 tab 11/29/19 Azithromycin 500 mg PO DAILY #5 tab 12/31/19 Ondansetron Odt [Zofran ODT] 4 mg PO Q8HR PRN #5 tab 12/31/19 Sucralfate Tab [Carafate Tab] 1 gm PO QID #40 tab 12/31/19 Acetaminophen [Tylenol] 650 mg PO Q6H PRN #30 tab 03/14/20 Cephalexin Monohydrate [Keflex] 500 mg PO Q6H 10 Days #40 cap 03/14/20 Doxycycline (Monohydrate) [Doxycycline Monohydrate] 100 mg PO BID 10 Days #20 tab 03/14/20 HYDROcodone 5MG/APAP 325MG [[place] 5/325] 1 ea PO .Q4H PRN #15 tab 03/22/20 Review of Systems - Review of Systems Constitutional: States: see HPI, malaise, weakness. Denies: fever EENTM: States: no symptoms reported, see HPI. Denies: blurred vision, double vision, nose congestion Respiratory: States: no symptoms reported. Denies: cough, short of breath, stridor, wheezing Cardiology: States: no symptoms reported. Denies: chest pain, palpitations, syncope Gastrointestinal/Abdominal: States: see HPI, nausea, vomiting. Denies: abdominal pain, diarrhea Genitourinary: States: no symptoms reported Musculoskeletal: States: no symptoms reported. Denies: back pain, neck pain Skin: States: no symptoms reported. Denies: change in color, rash Neurological: States: see HPI, weakness. Denies: headache, numbness, paresthesia, tingling Endocrine: States: no symptoms reported Hematologic/Lymphatic: States: no symptoms reported All other Systems: No Change from Baseline Past Medical History (General) - Patient Medical History Hx Seizures: No Hx Stroke: No Hx Dementia: No Hx Asthma: No Hx of COPD: No Hx Cardiac Disorders: Yes - Hx [place] Hx Congestive Heart Failure: Yes Hx Pacemaker: No Hx Hypertension: Yes Hx Thyroid Disease: No Hx Diabetes: Yes Hx Gastroesophageal Reflux: No Hx Renal Disease: Yes - on dialysis, shunt in upper left arm, Tues, Thur, Sat Hx Cancer: No Hx of HIV: No Hx Hepatitis C: No Hx MRSA: No MRSA Source:: Wound - Vaccination History Hx Tetanus, Diphtheria Vaccination: No - allergic Hx Influenza Vaccination: Yes Hx Pneumococcal Vaccination: Yes - Social History Hx Tobacco Use: No Hx Chewing Tobacco Use: No Hx Alcohol Use: No Hx Substance Use: No Hx Substance Use Treatment: No Hx Depression: No Hx Physical Abuse: No Hx Emotional Abuse: No Hx Suspected Abuse: No - Female History Patient : No Family Medical History - Family History Father Family History: Unknown Living Status: Age at (years of age): 62 Cause of : "blood poisoning" Hx Family Asthma: No Hx Family Congestive Heart Failure: No Hx Family Hypertension: No Hx Family Stroke: No Hx Cardiac Disease: No Hx Family Diabetes: Yes - mom Hx Family Cancer: No Physical Exam - Physical Exam General Appearance: Alert, Anxious, Well Developed, Well Groomed, Well Hydrated, Well Nourished Eye Exam: bilateral normal Ears, Nose, Throat: hearing grossly normal, normal ENT inspection, normal pharynx Neck: non-tender, full range of motion, supple Respiratory: chest non-tender, lungs clear, normal breath sounds, no respiratory distress Cardiovascular/Chest: normal peripheral pulses, regular rate, rhythm, no edema, no JVD, systolic murmur - 2/6 Peripheral Pulses: radial,right: 2+, radial,left: 2+ - Patient also with a good thrill in the left upper arm at the site of his fistula. 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 03/28/20 13:11 Patient's condition has improved markedly after 500 cc of IV fluid. Patient does have some mild hypokalemia as well as hypo-Olivier C. Candace. Labs do no continued renal failure and anemia of chronic disease. Plan on discharge home at this time. I discussed this plan of care with the patient and his daughter and they voiced understanding and agreement with the plan of care. Jorge Luis Houser M.D. #[id number] - Results/Orders Results/Orders: EKG performed on 28 Mar 2020 at 0917 hrs.: Sinus rhythm with sinus arrhythmia with first-degree AV block at 64 bpm, right bundle branch block, left anterior fascicular block, septal infarct age indeterminate, T wave abnormalities laterally concerning for ischemia, abnormal EKG. No prior EKGs for comparison at this time. 03/28/20 09:16 IV Care:Saline Lock per Protoc QSHIFT Sodium Chloride 0.9% (Flush) [Saline Flush Syringe] 10 ml IV PRN PRN 03/28/20 09:30 EKG STAT Laboratory Results - last 24 hr 03/28/20 03/28/20 11:40 11:40 WBC 11.8 H RBC 3.15 L Hgb 10.0 L Hct 30.0 L MCV 95.2 H MCH 31.8 H MCHC 33.4 RDW 21.7 H Plt Count 153 MPV 8.6 Absolute Neuts (auto) 10.00 H Absolute Lymphs (auto) 0.90 L Absolute Monos (auto) 0.70 Absolute Eos (auto) 0.10 Absolute Basos (auto) 0.10 Neutrophils % 84.5 H Lymphocytes % 8.0 L Monocytes % 6.2 Eosinophils % 0.6 L Basophils % 0.7 Sodium 137 Potassium 2.9 L Chloride 94 L Carbon Dioxide 31 Anion Gap 14.9 BUN 17 Creatinine 4.66 H BUN/Creatinine Ratio 3.6 L Random Glucose 118 H Serum Osmolality 276.4 Calcium 7.8 L Total Bilirubin 1.0 Direct Bilirubin 0.1 Indirect Bilirubin 0.9 H AST 12 ALT 9 L Alkaline Phosphatase 67 Serum Total Protein 6.8 Albumin 2.5 L Lipase 28 Departure - Departure Clinical Impression: Hypokalemia, Hypocalcemia, End stage renal disease, Hypoalbuminemia, Dehydration Time of Disposition: 13:16 Disposition: Discharge to Home or Self Care Condition: Good Departure Forms: ED Discharge - Pt. Copy, Patient Portal Self Enrollment Instructions: Dehydration, Adult (DC), Hypokalemia (DC), End Stage Kidney Disease (DC) Activity: increase activity as tolerated Referrals: PANFILO RIBERA MD [Primary Care Provider] - 1-2 Days Home Medications: Ambulatory Orders Amlodipine Besylate 5 mg PO DAILY 07/13/13 Clonidine HCl 0.1 mg PO DAILY 07/13/13 Metoprolol Tartrate 50 mg PO DAILY 07/13/13 Insulin Aspart Protamine & Asp [Novolog Mix 70/30 (70-30) 100 Unit/ml] 20 unit SC DAILY 05/25/15 B-Complex W/ C & Folic Acid [Renal-Caitlyn 0.8 mg] 1 tab PO DAILY 08/09/19 Calcium Acetate (Phosphate Bin [Calcium Acetate] 667 mg PO TID 08/09/19 Enalapril Maleate [Vasotec] 20 mg PO DAILY 08/09/19 Acetaminophen W/ Codeine [Tylenol W/ CODEINE #3] 1 ea PO Q8H PRN #15 11/29/19 Bumetanide 11/29/19 Prednisone 50 mg PO DAILY #5 tab 11/29/19 Azithromycin 500 mg PO DAILY #5 tab 12/31/19 Ondansetron Odt [Zofran ODT] 4 mg PO Q8HR PRN #5 tab 12/31/19 Sucralfate Tab [Carafate Tab] 1 gm PO QID #40 tab 12/31/19 Acetaminophen [Tylenol] 650 mg PO Q6H PRN #30 tab 03/14/20 Cephalexin Monohydrate [Keflex] 500 mg PO Q6H 10 Days #40 cap 03/14/20 Doxycycline (Monohydrate) [Doxycycline Monohydrate] 100 mg PO BID 10 Days #20 tab 03/14/20 HYDROcodone 5MG/APAP 325MG [[place] 5/325] 1 ea PO .Q4H PRN #15 tab 03/22/20
[2020-03-28] MEDS ORDERED: SODIUM CHLORIDE 0.9% 250ML 250 ML IVS ONE (11:42)
[2020-03-28 13:32] VITALS: BP 133/56; TEMP 97.8; O2SAT 95
== END 2020-03-28 13:32 | disposition home or self-care (01) ==
LOC: ER 08:59
DX: E87.6 Hypokalemia (principal); E83.51 Hypocalcemia; E88.09 Other disorders of plasma-protein metabolism, not elsewhere classified; E86.0 Dehydration; I44.0 Atrioventricular block, first degree; I45.10 Unspecified right bundle-branch block; I12.0 Hypertensive chronic kidney disease with stage 5 chronic kidney disease or end stage renal disease; E11.22 Type 2 diabetes mellitus with diabetic chronic kidney disease; N18.6 End stage renal disease; Z99.2 Dependence on renal dialysis
CPT/HCPCS: 36415; 80048; 80076; 83690; 85025; 93005; J7050

== ENCOUNTER 2020-03-30 18:29 | Emergency (ER) | payer MEDICARE, MEDICAID ==
[2020-03-30 19:19] VITALS: O2SAT 92
--- NOTE | 2020-03-30 19:20 | RAD ---
EXAM DESCRIPTION: Abdomen Series CLINICAL HISTORY: 74 years Male ,generalized weakness COMPARISON: 11/01/2019 TECHNIQUE: Frontal view chest x-ray and two views of the abdomen. FINDINGS: Poor depth of inspiration. There appears to be infiltrate in the lung bases bilaterally which may be in part due to the poor depth of inspiration and overlying soft tissue. Heart is enlarged. No free air is identified beneath the hemidiaphragms. No dilated loops of bowel to suggest obstruction. IMPRESSION: Cardiac enlargement with poor depth of inspiration Question infiltrate or atelectasis in the lung bases versus overlying soft tissue artifact Electronically signed by: Lotus Marquis MD 03/30/2020 7:18 PM CDT
[2020-03-30] MEDS ORDERED: POTASSIUM CHLORIDE ELIXIR 20 MEQ/15 ML UD PO ONE (19:25)
[2020-03-30] MEDS ORDERED: MAGNESIUM SULFATE PREMIX 2GM 2 GM in PREMIX BAG 1 BAG IVPB ONE (19:26)
[2020-03-30] MEDS ORDERED: cefTRIAXone SODIUM 1 GM VIAL IM ONE (19:28)
[2020-03-30] MEDS ORDERED: FUROSEMIDE INJ 40 MG/4 ML VIAL IV ONE (19:31)
--- NOTE | 2020-03-30 19:47 | ED.PDOC ---
History of Present Illness - General Chief Complaint: General Stated Complaint: weakness Time Seen by Provider: 03/30/20 18:30 Source: patient Exam Limitations: no limitations - History of Present Illness Initial Comments: The patient is a 74-year-old male presented emergency room with EMS secondary to feeling severely weak all over but worse in bilateral lower extrem ities. The patient actually fell yesterday. He felt too weak this morning to get up and go to dialysis. He has had some generalized fluid overload for the last week or so. He had missed a dialysis session 2 weeks ago as well. He appears to have never recovered from that. The patient has a history of end- stage renal disease and receives dialysis with Dr. Peguero. He has a significant history of coronary artery disease and CHF that is apparently quite advanced. He also has a history of COPD Crohn's hypertension diabetes and significant peripheral vascular disease. It seems that over the last month or 2 he is also been having some increasing claudication issues in his lower extremities. Due to that he has been less ambulatory and has been taking more pain medications. The patient has significant edema to bilateral lower extremities. He reports increasing shortness of breath with exertion but is not markedly short of breath with lying still. The patient does appear a little bit drowsy. No fevers. No productive cough. The patient does have numerous healing abrasions and pressure areas to his toes. The patient had been wearing shoes that had been rubbing and pressing on the end of his toes previously. He does have poor circulation to his feet to start with. He had also not been covering them and keeping them warm. He is alert and oriented x4 but he is a little bit drowsy. No real focal neurological deficits that appear new. Timing/Duration: unsure Severity: moderate Improving Factors: rest Worsening Factors: movement Associated Symptoms: malaise, shortness of breath, weakness Allergies/Adverse Reactions: Allergies Tetanus Toxoid Allergy (Verified 03/20/20 23:42) Swelling of extremities Home Medications: Ambulatory Orders Amlodipine Besylate 5 mg PO DAILY 07/13/13 Clonidine HCl 0.1 mg PO DAILY 07/13/13 Metoprolol Tartrate 50 mg PO DAILY 07/13/13 Insulin Aspart Protamine & Asp [Novolog Mix 70/30 (70-30) 100 Unit/ml] 20 unit SC DAILY 05/25/15 B-Complex W/ C & Folic Acid [Renal-Caitlyn 0.8 mg] 1 tab PO DAILY 08/09/19 Calcium Acetate (Phosphate Bin [Calcium Acetate] 667 mg PO TID 08/09/19 Enalapril Maleate [Vasotec] 20 mg PO DAILY 08/09/19 Acetaminophen W/ Codeine [Tylenol W/ CODEINE #3] 1 ea PO Q8H PRN #15 11/29/19 Bumetanide 11/29/19 Prednisone 50 mg PO DAILY #5 tab 11/29/19 Azithromycin 500 mg PO DAILY #5 tab 12/31/19 Ondansetron Odt [Zofran ODT] 4 mg PO Q8HR PRN #5 tab 12/31/19 Sucralfate Tab [Carafate Tab] 1 gm PO QID #40 tab 12/31/19 Acetaminophen [Tylenol] 650 mg PO Q6H PRN #30 tab 03/14/20 Cephalexin Monohydrate [Keflex] 500 mg PO Q6H 10 Days #40 cap 03/14/20 Doxycycline (Monohydrate) [Doxycycline Monohydrate] 100 mg PO BID 10 Days #20 tab 03/14/20 HYDROcodone 5MG/APAP 325MG [Spencer 5/325] 1 ea PO .Q4H PRN #15 tab 03/22/20 Review of Systems - Review of Systems Constitutional: States: weakness - Generalized but a little worse with the lower extremities with the increasing edema EENTM: States: no symptoms reported Respiratory: States: short of breath Cardiology: States: edema Gastrointestinal/Abdominal: States: no symptoms reported Genitourinary: States: no symptoms reported Musculoskeletal: States: no symptoms reported Skin: States: see HPI, change in color Neurological: States: see HPI Endocrine: States: no symptoms reported All other Systems: No Change from Baseline Past Medical History (General) - Patient Medical History Hx Seizures: No Hx Stroke: No Hx Dementia: No Hx Asthma: No Hx of COPD: No Hx Cardiac Disorders: Yes - Hx [place] Hx Congestive Heart Failure: Yes Hx Pacemaker: No Hx Hypertension: Yes Hx Thyroid Disease: No Hx Diabetes: Yes Hx Gastroesophageal Reflux: No Hx Renal Disease: Yes - on dialysis, shunt in upper left arm, Tues, Thur, Sat Hx Cancer: No Hx of HIV: No Hx Hepatitis C: No Hx MRSA: No MRSA Source:: Wound - Vaccination History Hx Tetanus, Diphtheria Vaccination: No - allergic Hx Influenza Vaccination: Yes Hx Pneumococcal Vaccination: Yes - Social History Hx Tobacco Use: No Hx Chewing Tobacco Use: No Hx Alcohol Use: No Hx Substance Use: No Hx Substance Use Treatment: No Hx Depression: No Hx Physical Abuse: No Hx Emotional Abuse: No Hx Suspected Abuse: No - Activities of Daily Living Hospice Agency (if applicable):: None - Female History Patient is a Female of Child Bearing Age (10 -59 yrs old): No Patient : No - Triage Comment ED Triage Comment: pt voices "just been feeling weak all day and I missed dialysis today". pt appears weak and pale. pt alert and oriented x3, answers questions with ease. skin color is dusky. Family Medical History - Family History Father Family History: Unknown Living Status: Age at (years of age): 62 Cause of : "blood poisoning" Hx Family Asthma: No Hx Family Congestive Heart Failure: No Hx Family Hypertension: No Hx Family Stroke: No Hx Cardiac Disease: No Hx Family Diabetes: Yes - mom Hx Family Cancer: No Physical Exam - Physical Exam General Appearance: Frail, Lethargic - Drowsy but oriented, Ill Appearing Eye Exam: bilateral normal Ears, Nose, Throat: hearing grossly normal, normal pharynx Neck: full range of motion, supple Respiratory: lungs clear - Possibly some mild rales at bilateral bases, normal breath sounds, no respiratory distress, no accessory muscle use Cardiovascular/Chest: regular rate, rhythm Peripheral Pulses: radial,right: 2+, radial,left: 2+ Gastrointestinal/Abdominal: non tender, soft, other - Old hernias noted but no evidence of any pain or obstruction Rectal Exam: deferred Back Exam: no vertebral tenderness Extremity: normal range of motion, pedal edema, other - The patient does have some mild cyanosis to the toes which is not new. He also has multiple abrasions as stated above. Neurologic: leg breaker II-XII nml as tested, alert, oriented x 3 Skin Exam: other - See above Comments: Vital Signs - 24 hr 03/30/20 03/30/20 03/30/20 18:32 18:37 19:15 Temperature 100.0 F H 97.3 F L Pulse Rate 65 Pulse Rate [ 62 63 64 brachial] Respiratory 18 18 16 Rate Blood Pressure 126/70 129/50 [Right Arm] O2 Sat by Pulse 94 L 92 L Oximetry Progress - Progress Progress: 03/30/20 19:50 The patient is a 74-year-old male with end-stage renal disease as well as CHF COPD and coronary artery disease as well as peripheral vascular disease diabetes and hypertension presenting secondary to progressive weakness and edema after missing his dialysis. He additionally has hypokalemia and hypomagnesemia. He has a chronically elevated troponin. He is not currently having any chest pain and there are no new EKG changes. 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 Arriola. The patient is going to be transferred for further evaluation with nephrology and dialysis. He did receive a dose of Lasix here but so far has been unable to provide a urine sample for urinalysis. He does not have a sputum culture at this point. Blood culture has been performed. He did receive a dose of Rocephin in case the index is are infectious. White blood cell count is mildly elevated for him at 12,000 on his baseline is around 8000. The patient does have significant peripheral vascular disease. Vascular evaluation could also be considered on this patient. He will need to be followed for his diabetes. Vital signs have remained stable. Transferring for specialty care. jaciel cardoso [phone] - Results/Orders Results/Orders: 03/30/20 18:31 Telemetry .CONTINUOUS 03/30/20 18:45 EKG STAT shows normal sinus rhythm at 63 bpm. There is a first-degree AV block. 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 Old septal infarct. Prolonged QT interval. No new changes when compared to previous 2 EKGs. Chest x-ray shows significant cardiomegaly with possible questionable bibasilar infiltrate versus fluid overload. 03/30/20 18:59 BLOOD CULTURE Stat Laboratory Results - last 24 hr 03/30/20 03/30/20 03/30/20 18:59 18:59 18:59 WBC 12.7 H RBC 2.82 L Hgb 8.9 L Hct 26.8 L MCV 95.3 H MCH 31.7 H MCHC 33.2 RDW 21.4 H Plt Count 140 MPV 9.1 Absolute Neuts (auto) 10.20 H Absolute Lymphs (auto) 1.60 Absolute Monos (auto) 0.70 Absolute Eos (auto) 0.10 Absolute Basos (auto) 0.10 Neutrophils % 80.1 H Lymphocytes % 12.7 L Monocytes % 5.4 Eosinophils % 1.1 Basophils % 0.7 PT 11.3 H INR 1.14 PTT (SP) 29.4 Sodium 133 L Potassium 3.0 L Chloride 94 L Carbon Dioxide 23 Anion Gap 19.0 H BUN 43 H D Creatinine 9.11 H* D BUN/Creatinine Ratio 4.7 L POC Glucose Random Glucose 213 H D Serum Osmolality 283.6 Lactic Acid Calcium 7.3 L Phosphorus Magnesium 1.4 L Total Bilirubin 0.7 AST 22 ALT 11 Alkaline Phosphatase 62 Creatine Kinase 103 CK-MB (CK-2) 1.8 CK-MB (CK-2) % 1.75 Troponin I 0.81 H* B-Natriuretic Peptide > 5000.0 H* Serum Total Protein 6.4 Albumin 2.5 L Globulin 3.9 H Albumin/Globulin Ratio 0.6 L 03/30/20 03/30/20 03/30/20 18:59 18:59 19:00 WBC RBC Hgb Hct MCV MCH MCHC RDW Plt Count MPV Absolute Neuts (auto) Absolute Lymphs (auto) Absolute Monos (auto) Absolute Eos (auto) Absolute Basos (auto) Neutrophils % Lymphocytes % Monocytes % Eosinophils % Basophils % PT INR PTT (SP) Sodium Potassium Chloride Carbon Dioxide Anion Gap BUN Creatinine BUN/Creatinine Ratio POC Glucose 205 H Random Glucose Serum Osmolality Lactic Acid 2.0 Calcium Phosphorus 7.9 H Magnesium Total Bilirubin AST ALT Alkaline Phosphatase Creatine Kinase CK-MB (CK-2) CK-MB (CK-2) % Troponin I B-Natriuretic Peptide Serum Total Protein Albumin Globulin Albumin/Globulin Ratio Departure - Departure Clinical Impression: Hypomagnesemia syndrome, Hypokalemia, Weakness generalized, Muscular deconditioning, Peripheral vascular disease of extremity with claudication Renal failure Qualifiers: Acute renal failure type: unspecified Chronic kidney disease stage: on chronic dialysis CHF exacerbation Qualifiers: Heart failure type: combined systolic and diastolic Qualified Code(s): I50.43 - Acute on chronic combined systolic (congestive) and diastolic (congestive) heart failure Edema Qualifiers: Edema type: unspecified Qualified Code(s): R60.9 - Edema, unspecified Disposition: Transfer to Hospital Condition: Poor Departure Forms: ED Discharge - Pt. Copy, Patient Portal Self Enrollment Referrals: PANFILO RIBERA MD [Primary Care Provider] - 1-2 Weeks Home Medications: Ambulatory Orders Amlodipine Besylate 5 mg PO DAILY 07/13/13 Clonidine HCl 0.1 mg PO DAILY 07/13/13 Metoprolol Tartrate 50 mg PO DAILY 07/13/13 Insulin Aspart Protamine & Asp [Novolog Mix 70/30 (70-30) 100 Unit/ml] 20 unit SC DAILY 05/25/15 B-Complex W/ C & Folic Acid [Renal-Caitlyn 0.8 mg] 1 tab PO DAILY 08/09/19 Calcium Acetate (Phosphate Bin [Calcium Acetate] 667 mg PO TID 08/09/19 Enalapril Maleate [Vasotec] 20 mg PO DAILY 08/09/19 Acetaminophen W/ Codeine [Tylenol W/ CODEINE #3] 1 ea PO Q8H PRN #15 11/29/19 Bumetanide 11/29/19 Prednisone 50 mg PO DAILY #5 tab 11/29/19 Azithromycin 500 mg PO DAILY #5 tab 12/31/19 Ondansetron Odt [Zofran ODT] 4 mg PO Q8HR PRN #5 tab 12/31/19 Sucralfate Tab [Carafate Tab] 1 gm PO QID #40 tab 12/31/19 Acetaminophen [Tylenol] 650 mg PO Q6H PRN #30 tab 03/14/20 Cephalexin Monohydrate [Keflex] 500 mg PO Q6H 10 Days #40 cap 03/14/20 Doxycycline (Monohydrate) [Doxycycline Monohydrate] 100 mg PO BID 10 Days #20 tab 03/14/20 HYDROcodone 5MG/APAP 325MG [Spencer 5/325] 1 ea PO .Q4H PRN #15 tab 03/22/20 Transfer to Outside Facility - Transfer Information Decision to Transfer Date: 03/30/20 Decision to Transfer Time: 19:57 Reason for Transfer: specialized care not available Accepting Provider:: [email or web address] Accepting Facility: [facility]
[2020-03-30] MEDS ORDERED: MAGNESIUM SULFATE PREMIX 2GM 50 ML IVPB ONE (19:55)
[2020-03-30] MEDS ORDERED: LIDOCAINE 1% 2 ML VIAL INJ ONE (19:57)
[2020-03-30 20:11] VITALS: BP 123/53; TEMP 97.9
== END 2020-03-30 20:21 | disposition short-term general hospital (02) ==
LOC: ER 18:29
DX: E87.6 Hypokalemia (principal); R53.1 Weakness; I44.0 Atrioventricular block, first degree; I73.9 Peripheral vascular disease, unspecified; I13.2 Hypertensive heart and chronic kidney disease with heart failure and with stage 5 chronic kidney disease, or end stage renal disease; N18.6 End stage renal disease; R60.9 Edema, unspecified; E11.22 Type 2 diabetes mellitus with diabetic chronic kidney disease; I50.43 Acute on chronic combined systolic (congestive) and diastolic (congestive) heart failure; J44.9 Chronic obstructive pulmonary disease, unspecified; Z79.899 Other long term (current) drug therapy; Z79.4 Long term (current) use of insulin
CPT/HCPCS: 36415; 74019; 80053; 82550; 82553; 82948; 83605; 83735; 83880; 84100; 84484; 85025; 85610; 85730; 87040; 93005; J0696; J1940; J3475

== ENCOUNTER 2020-04-15 10:12 | Emergency (ER) | payer MEDICARE, MEDICAID ==
[2020-04-15] MEDS ORDERED: NALOXONE HCL INJ 0.4 MG/ML VIAL IV ONE (10:47)
[2020-04-15] MEDS ORDERED: SODIUM CHLORIDE 0.9% 1000ML 500 ML IVS ONE (11:30)
[2020-04-15] MEDS ORDERED: IPRATROPIUM/ALBUTEROL 3 ML VIAL NEB ONE (12:01)
[2020-04-15] MEDS ORDERED: PIPERACILLIN/TAZOBACTAM 2.25 GM in SODIUM CHLORIDE 0.9% 50ML 50 ML IVPB ONE (12:03)
[2020-04-15] MEDS ORDERED: VANCOMYCIN HCL INJ 1,000 MG in SODIUM CHLORIDE 0.9% 250ML 250 ML IVPB ONE (12:03)
--- NOTE | 2020-04-15 12:18 | CT ---
PROCEDURE: CT Head Without Intravenous Contrast CLINICAL INDICATION: The patient is 74 years old and is Male; lethargic MAIN TECHNIQUE: Axial computed tomography images of the head/brain without intravenous contrast. Sagittal and coronal reformatted images were created and reviewed. This CT exam was performed using one or more of the following dose reduction techniques: automated exposure control, adjustment of the mA and/or kV according to patient size, and/or use of iterative reconstruction technique. RADIATION DOSE: Total exam DLP is 1441.37 mGycm. COMPARISON: No relevant prior studies available. FINDINGS: ARTIFACTS: The study is moderately compromised by image degradation from motion artifact.. BRAIN: There are moderate patchy areas of hypodensity in the periventricular white matter, extending into the centrum semiovale and colón radiata bilaterally, which are felt to represent the sequela of small vessel ischemic disease (microangiopathy). The alexandre/white matter differentiation is intact. NO intra-or extra-axial fluid collections are seen. Early infarcts within the first 12 hours may not be visible on noncontrast CT. MIDLINE SHIFT: There is NO midline shift. VENTRICLES: There is mild global atrophy with prominence of the ventricles, sulci and basilar cisterns. BONES/JOINTS: Unremarkable. No calvarial fracture. SOFT TISSUES: The soft tissues of the scalp are unremarkable. VASCULATURE: Intracranial vascular calcifications are noted. SINUSES: The visualized paranasal sinuses are clear. MASTOID AIR CELLS: Unremarkable as visualized. No mastoid effusion. ORBITS: There has been bilateral cataract surgery. IMPRESSION: No acute intracranial abnormality is identified. No prior studies are available at this time for comparison, and if they can be made available, it would be recommended for better evaluation. Electronically signed by: Tyler Low MD 04/15/2020 12:17 PM CDT
[2020-04-15] MEDS ORDERED: methylPREDNISolone SODIUM SUC 125 MG/2 ML VIAL IV ONE (12:36)
--- NOTE | 2020-04-15 12:41 | RAD ---
PROCEDURE: XR Chest, 1 View CLINICAL INDICATION: The patient is 74 years old and is Male; ams MAIN TECHNIQUE: Frontal view of the chest. COMPARISON: Prior study from 03/16/2020 FINDINGS: LIMITATIONS: The patient is rotated, which can compromise assessment. LUNGS: The lungs are clear and free of focal consolidation. PLEURAL SPACE: There is no pneumothorax. There are no pleural effusions noted. HEART: The heart size is enlarged. MEDIASTINUM: The mediastinal contour is normal. BONES/JOINTS: No acute abnormality noted. TUBES, LINES AND DEVICES: There are electrocardiogram leads present. IMPRESSION: No active disease is seen in the chest. Electronically signed by: Tyler Low MD 04/15/2020 12:40 PM CDT
--- NOTE | 2020-04-15 13:05 | CT ---
PROCEDURE: CT Abdomen and Pelvis Without Intravenous Contrast CLINICAL INDICATION: The patient is 74 years old and is Male; lethargic, abd pain MAIN TECHNIQUE: Axial computed tomography images of the abdomen and pelvis without intravenous contrast. Sagittal and coronal reformatted images were created and reviewed. As a consequence of the lack of intravenous contrast, there is limited evaluation of the organs and soft tissues. This CT exam was performed using one or more of the following dose reduction techniques: automated exposure control, adjustment of the mA and/or kV according to patient size, and/or use of iterative reconstruction technique. COMPARISON: Noncontrast CT of the abdomen and pelvis from 11/21/2018. FINDINGS: ARTIFACTS: The study is moderately compromised by image degradation from motion artifact.. Patient arm positioning results in beam hardening artifact which degrades image quality. LUNG BASES: Mild patchy opacities at the lung bases, LEFT greater than RIGHT which could be from infiltrates or atelectasis. HEART: The heart size is enlarged. There are coronary artery calcifications noted. ABDOMEN: LIVER: Unremarkable noncontrast appearance of the liver. GALLBLADDER AND BILE DUCTS: Multiple calcified gallstones again noted. There is vicarious excretion of contrast within the gallbladder lumen. No ductal dilation. PANCREAS: Unremarkable. No ductal dilation. SPLEEN: Unremarkable. No splenomegaly. No splenic lesion noted. ADRENALS: RIGHT adrenal adenoma has considerably decreased in size since the prior study. There is a stable LEFT adrenal adenoma identified. KIDNEYS AND URETERS: There is no evidence of nephrolithiasis or ureteral obstruction bilaterally on this noncontrast CT. Tiny RIGHT lateral exophytic subcentimeter hyperdense renal cysts are stable. Previously identified nonobstructing calculus in the lower pole of the RIGHT kidney is no longer seen. STOMACH AND BOWEL: There is no evidence of diverticulitis. There is no evidence of bowel obstruction. There is oral contrast opacifying the bowel. There is liquid stool in the rectum. PELVIS: APPENDIX: No findings to suggest acute appendicitis. BLADDER: Urinary bladder is markedly distended but otherwise unremarkable, with contrast within the lumen. No stones. REPRODUCTIVE: The prostate gland is enlarged. ABDOMEN and PELVIS: INTRAPERITONEAL SPACE: Unremarkable. No free air. No significant fluid collection. BONES/JOINTS: There are degenerative changes of the spine identified. There is disc space narrowing at L5-S1. SOFT TISSUES: Previously noted anasarca and bilateral pleural effusions have resolved. VASCULATURE: There are atheromatous vascular calcifications of the aortoiliac system. No abdominal aortic aneurysm. LYMPH NODES: Unremarkable. No significant retroperitoneal or pelvic lymphadenopathy. OTHER FINDINGS: There is elevation of the LEFT hemidiaphragm. IMPRESSION: 1. There is no evidence of nephrolithiasis or ureteral obstruction bilaterally on this noncontrast CT. 2. Urinary bladder is markedly distended but otherwise unremarkable, with contrast within the lumen. 3. The study is moderately compromised by image degradation from motion artifact and patient arm positioning causing beam hardening artifact. There is also limitation from lack of intravenous contrast enhancement. There is oral contrast opacifying the bowel. 4. RIGHT adrenal adenoma has considerably decreased in size since the prior study. There is a stable LEFT adrenal adenoma identified. Electronically signed by: Tyler Low MD 04/15/2020 1:03 PM CDT
--- NOTE | 2020-04-15 13:55 | ED.PDOC ---
History of Present Illness - General Chief Complaint: Unresponsive Stated Complaint: unresponsive Time Seen by Provider: 04/15/20 10:27 Source: patient Exam Limitations: no limitations - History of Present Illness Initial Comments: The patient is a 74-year-old male presented emergency room from the correction secondary to lethargy this morning. Apparently the patient was transferred to the correction about 3 days ago from [facility] after having had below the knee amputations bilaterally due to peripheral vascular disease. The patient is a dialysis patient and is due for dialysis today. He also has a significant history of COPD and CHF. Upon arrival the patient is very briefly arousable to loud voice. He will stay awake for about 5 seconds before falling back asleep. He does move all extremities well. No difficulty controlling his airway. BKA sites appear to be healing appropriately. I see no obvious evidence of infection at this time. The patient does have a decubitus ulcer developing posteriorly in the sacral area. The patient does have some wheezes and some mildly coarse breath sounds. Initial oxygen saturations ranged from 82 to 95%. These do improve significantly after breathing treatment. He is on supplemental oxygen. The patient also exhibits significant pain with palpation of the lower abdomen. He does have some chronic deformities related to previous surgeries. Blood pressures are actually in the normal to low normal range which is extremely unusual for him. Normally he is markedly hypotensive. He did rouse a little bit with a small dose of Narcan. The patient is not febrile. Apparently he was acting normally last night when he was put to bed. Timing/Duration: unsure Severity: severe Improving Factors: medication Worsening Factors: nothing Associated Symptoms: cough, malaise, weakness Allergies/Adverse Reactions: Allergies Tetanus Toxoid Allergy (Verified 03/20/20 23:42) Swelling of extremities Home Medications: Ambulatory Orders Amlodipine Besylate 5 mg PO DAILY 07/13/13 Clonidine HCl 0.1 mg PO Q8H 07/13/13 Insulin Aspart Protamine & Asp [Novolog Mix 70/30 (70-30) 100 Unit/ml] 20 unit SC DAILY 05/25/15 B-Complex W/ C & Folic Acid [Renal-Caitlyn 0.8 mg] 1 tab PO DAILY 08/09/19 Calcium Acetate (Phosphate Bin [Calcium Acetate] 667 mg PO TID 08/09/19 Acetaminophen [Tylenol] 650 mg PO Q6H PRN #30 tab 03/14/20 Aspirin [Aspirin Low Strength] 81 mg PO DAILY 04/15/20 Calcitriol 0.5 mcg PO DAILY 04/15/20 Clopidogrel Bisulfate [Plavix] 75 mg PO QD 04/15/20 Gabapentin 300 mg PO BEDTIME 04/15/20 HYDROcodone 5MG/APAP 325MG [Radnor 5/325] 1 tablet PO Q6HR PRN 04/15/20 Lisinopril 20 mg PO DAILY 04/15/20 Pantoprazole Tablet [Protonix] 40 mg PO DAILY 04/15/20 Sevelamer Carbonate 800 mg PO TID 04/15/20 Review of Systems - Review of Systems Review of Systems: 04/15/20 13:55 Review of systems is extremely limited due to patient's current condition. Unable to Obtain Due To: clinical condition Past Medical History (General) - Patient Medical History Hx Seizures: No Hx Stroke: No Hx Dementia: No Hx Asthma: No Hx of COPD: No Hx Cardiac Disorders: Yes - Hx NE Hx Congestive Heart Failure: Yes Hx Pacemaker: No Hx Hypertension: Yes Hx Thyroid Disease: No Hx Diabetes: Yes Hx Gastroesophageal Reflux: No Hx Renal Disease: Yes - on dialysis, shunt in upper left arm, Tues, Thur, Sat Hx Cancer: No Hx of HIV: No Hx Hepatitis C: No Hx MRSA: No MRSA Source:: Wound - Vaccination History Hx Tetanus, Diphtheria Vaccination: No - allergic Hx Influenza Vaccination: Yes Hx Pneumococcal Vaccination: Yes - Social History Hx Tobacco Use: No Hx Chewing Tobacco Use: No Hx Alcohol Use: No Hx Substance Use: No Hx Substance Use Treatment: No Hx Depression: No Hx Physical Abuse: No Hx Emotional Abuse: No Hx Suspected Abuse: No - Activities of Daily Living [facility]isted Living (if applicable):: [facility] - Female History Patient : No Family Medical History - Family History Father Family History: Unknown Living Status: Age at (years of age): 64 Cause of : "blood poisoning" Hx Family Asthma: No Hx Family Congestive Heart Failure: No Hx Family Hypertension: No Hx Family Stroke: No Hx Cardiac Disease: No Hx Family Diabetes: Yes - mom Hx Family Cancer: No Physical Exam - Physical Exam General Appearance: Lethargic Eye Exam: bilateral normal - Extraocular movements do appear to be intact. Ears, Nose, Throat: hearing grossly normal, other - Mucous membranes are fairly dry Neck: non-tender, supple Respiratory: no respiratory distress, no accessory muscle use, rhonchi, wheezing Cardiovascular/Chest: normal peripheral pulses, regular rate, rhythm, no edema, other - The patient does have very frequent PACs on telemetry. Peripheral Pulses: radial,right: 2+, radial,left: 2+ Gastrointestinal/Abdominal: other - The patient does have chronic scarring to the lower abdomen. He also has discomfort to palpation of the lower abdomen. Rectal Exam: deferred Back Exam: other - The patient does have some early skin breakdown and bruising to the sacral area Extremity: other - Bilateral BKA's. Neurologic: other - The patient is lethargic but arousable to voice. He briefly. He does move all extremities, but not always necessarily to command. Skin Exam: other - The patient has multiple bruising from previous IV sites. He has a thrill to his left upper extremity where he gets dialysis. He is having some skin breakdown and ulceration formation to the sacral area. Comments: Vital Signs - 24 hr 04/15/20 04/15/20 04/15/20 10:28 11:09 12:30 Temperature 97.5 F L Pulse Rate 90 Pulse Rate [ 94 H 88 monitor] Respiratory 27 H 27 H 24 Rate Blood Pressure 131/57 119/55 [Right Arm] O2 Sat by Pulse 92 L 100 Oximetry 04/15/20 04/15/20 13:00 13:32 Temperature Pulse Rate 88 Pulse Rate [ 86 82 monitor] Respiratory 15 16 Rate Blood Pressure 119/55 120/46 [Right Arm] O2 Sat by Pulse 98 93 L Oximetry Progress - Progress Progress: 04/15/20 14:01 The patient is a 74-year-old male sent up from the correction primarily due to lethargy this morning. This is likely metabolic encephalopathy related to sepsis from bilateral lower lobe pneumonia developing. He does have what appears to be a metabolic alkalosis that is likely due to the need for dialysis. He is also having a mild COPD exacerbation and has done better with a breathing treatment. The patient also has significant urinary retention and has been treated with a Wren catheter. He also has a decubitus ulcer that will need following. The patient has been started on vancomycin and Zosyn here. Blood culture has been performed. Mental status has improved a little bit. I do expect it to improve further with dialysis and treatment of the infection. Given the patient's comorbidities he does carry high mortality with these problems. He has no known exposure to coronavirus. Transferring for specialty care including dialysis. Sepsis is indicated by the white blood cell count as well as the markedly lower than normal blood pressures for this patient. He has not yet technically hypotensive. Normally systolic blood pressures were running in the 180s to 190s for this patient. Critical care time spent in treatment of sepsis with metabolic encephalopathy and acute on chronic renal failure is 40 minutes. [email or web address] cardoso [phone] - Results/Orders Results/Orders: 04/15/20 10:27 Telemetry .CONTINUOUS 04/15/20 10:30 EKG STAT EKG shows a sinus rhythm of 92 bpm. Telemetry shows frequent PACs. 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 No acute ST segment or T wave changes concerning for acute ischemia when compared to previous EKGs. He does have QT prolongation as a result. Chest x-ray shows atelectasis or infiltrates at the bases. Head CT shows no acute pathology. CT scan of the abdomen pelvis shows bilateral lung base opacities, mild cardiomegaly, bilateral adrenal adenomas and a markedly distended bladder. See reports of above for details. 04/15/20 12:03 Vancomycin HCl Inj 1,000 mg Sodium Chloride 0.9% 250Ml [NS 250ml] 250 ml IVPB ONCE 04/15/20 12:04 BLOOD CULTURE Stat Laboratory Results - last 24 hr 04/15/20 04/15/20 04/15/20 10:46 10:46 10:46 WBC 23.4 H* RBC 2.90 L Hgb 8.9 L Hct 28.2 L MCV 97.4 H MCH 30.9 MCHC 31.7 L RDW 19.8 H Plt Count 274 MPV 8.6 Absolute Neuts (auto) Not Reportable Absolute Lymphs (auto) Not Reportable Absolute Monos (auto) Not Reportable Absolute Eos (auto) Not Reportable Neutrophils % Not Reportable Neutrophils % (Manual) 84.0 H Lymphocytes % Not Reportable Lymphocytes % (Manual) 5.0 Monocytes % Not Reportable Monocytes % (Manual) 0.0 Eosinophils % Not Reportable Basophils % Not Reportable Band Neutrophils 11.0 H* Eosinophils 0.0 Basophils 0.0 Platelet Estimate Normal RBC Morphology 1+aniso PT 20.9 H INR 2.11 H PTT (SP) 39.4 H pCO2 pO2 HCO3 ABG pH ABG O2 Saturation ABG Base Excess ABG Deoxyhemoglobin Oxyhemoglobin % Carboxyhemoglobin % Methemoglobin % Sat Calc Total Hemoglobin Sodium 139 Potassium 5.5 H Chloride 98 L Carbon Dioxide 21 Anion Gap 25.5 H BUN 55 H Creatinine 9.52 H* BUN/Creatinine Ratio 5.8 L POC Glucose Random Glucose 180 H Serum Osmolality 297.2 H Lactic Acid Calcium 8.5 Magnesium 2.3 Total Bilirubin 1.4 H AST 68 H ALT < 8 L Alkaline Phosphatase 81 Creatine Kinase 2020 H* CK-MB (CK-2) 11.2 H* CK-MB (CK-2) % 0.55 Troponin I 0.23 H* B-Natriuretic Peptide 3710.0 H* Serum Total Protein 8.0 Albumin 2.4 L Globulin 5.6 H Albumin/Globulin Ratio 0.4 L Amylase 106 H Lipase 60 H Urine Color Urine Appearance Urine pH Ur Specific [place] Urine Protein Urine Glucose (UA) Urine Ketones Urine Blood Urine Nitrite Urine Bilirubin Urine Urobilinogen Ur Leukocyte Esterase Urine RBC Urine WBC Ur Epithelial Cells Urine Bacteria Acetaminophen 04/15/20 04/15/20 04/15/20 10:46 10:46 10:46 WBC RBC Hgb Hct MCV MCH MCHC RDW Plt Count MPV Absolute Neuts (auto) Absolute Lymphs (auto) Absolute Monos (auto) Absolute Eos (auto) Neutrophils % Neutrophils % (Manual) Lymphocytes % Lymphocytes % (Manual) Monocytes % Monocytes % (Manual) Eosinophils % Basophils % Band Neutrophils Eosinophils Basophils Platelet Estimate RBC Morphology PT INR PTT (SP) pCO2 pO2 HCO3 ABG pH ABG O2 Saturation ABG Base Excess ABG Deoxyhemoglobin Oxyhemoglobin % Carboxyhemoglobin % Methemoglobin % Sat Calc Total Hemoglobin Sodium Potassium Chloride Carbon Dioxide Anion Gap BUN Creatinine BUN/Creatinine Ratio POC Glucose 174 H Random Glucose Serum Osmolality Lactic Acid 1.5 Calcium Magnesium Total Bilirubin AST ALT Alkaline Phosphatase Creatine Kinase CK-MB (CK-2) CK-MB (CK-2) % Troponin I B-Natriuretic Peptide Serum Total Protein Albumin Globulin Albumin/Globulin Ratio Amylase Lipase Urine Color Urine Appearance Urine pH Ur Specific [place] Urine Protein Urine Glucose (UA) Urine Ketones Urine Blood Urine Nitrite Urine Bilirubin Urine Urobilinogen Ur Leukocyte Esterase Urine RBC Urine WBC Ur Epithelial Cells Urine Bacteria Acetaminophen < 10.0 L 04/15/20 04/15/20 11:11 12:20 WBC RBC Hgb Hct MCV MCH MCHC RDW Plt Count MPV Absolute Neuts (auto) Absolute Lymphs (auto) Absolute Monos (auto) Absolute Eos (auto) Neutrophils % Neutrophils % (Manual) Lymphocytes % Lymphocytes % (Manual) Monocytes % Monocytes % (Manual) Eosinophils % Basophils % Band Neutrophils Eosinophils Basophils Platelet Estimate RBC Morphology PT INR PTT (SP) pCO2 30 L pO2 53 L HCO3 24.2 ABG pH 7.523 H ABG O2 Saturation 88.5 L ABG Base Excess 1.7 ABG Deoxyhemoglobin 11.2 H Oxyhemoglobin % 86.5 L Carboxyhemoglobin % 1.5 Methemoglobin % Sat 0.8 Calc Total Hemoglobin 8.9 L Sodium Potassium Chloride Carbon Dioxide Anion Gap BUN Creatinine BUN/Creatinine Ratio POC Glucose Random Glucose Serum Osmolality Lactic Acid Calcium Magnesium Total Bilirubin AST ALT Alkaline Phosphatase Creatine Kinase CK-MB (CK-2) CK-MB (CK-2) % Troponin I B-Natriuretic Peptide Serum Total Protein Albumin Globulin Albumin/Globulin Ratio Amylase Lipase Urine Color Yellow Urine Appearance Clear Urine pH 7.5 Ur Specific [place] 1.020 Urine Protein >=300 H Urine Glucose (UA) 100 H Urine Ketones Negative Urine Blood Small H Urine Nitrite Negative Urine Bilirubin Negative Urine Urobilinogen 0.2 Ur Leukocyte Esterase Negative Urine RBC 5-10 H Urine WBC 0 Ur Epithelial Cells 0 Urine Bacteria Rare Acetaminophen - EKG/XRAY/CT CT Ordered: Yes Departure - Departure Clinical Impression: Acute metabolic encephalopathy, Chronic renal failure, stage 5, COPD with exacerbation, Metabolic alkalosis, Urinary retention Pneumonia Qualifiers: Pneumonia type: due to unspecified organism Laterality: bilateral Lung locati on: lower lobe of lung Qualified Code(s): J18.9 - Pneumonia, unspecified organism Sepsis Qualifiers: Sepsis type: sepsis due to unspecified organism Sepsis acute organ dysfunction status: with acute organ dysfunction Severe sepsis acute organ dysfunction type: encephalopathy Severe sepsis shock status: without septic shock Qualified Code(s): A41.9 - Sepsis, unspecified organism; R65.20 - Severe sepsis without septic shock; G93.40 - Encephalopathy, unspecified Decubitus ulcer Qualifiers: Pressure injury location: sacral region Pressure injury stage: stage 2 Qualified Code(s): L89.152 - Pressure ulcer of sacral region, stage 2 Disposition: Transfer to Hospital Condition: Serious Departure Forms: ED Discharge - Pt. Copy, Patient Portal Self Enrollment Referrals: PANFILO RIBERA MD [Primary Care Provider] - 1-2 Weeks Home Medications: Ambulatory Orders Amlodipine Besylate 5 mg PO DAILY 07/13/13 Clonidine HCl 0.1 mg PO Q8H 07/13/13 Insulin Aspart Protamine & Asp [Novolog Mix 70/30 (70-30) 100 Unit/ml] 20 unit SC DAILY 05/25/15 B-Complex W/ C & Folic Acid [Renal-Caitlyn 0.8 mg] 1 tab PO DAILY 08/09/19 Calcium Acetate (Phosphate Bin [Calcium Acetate] 667 mg PO TID 08/09/19 Acetaminophen [Tylenol] 650 mg PO Q6H PRN #30 tab 03/14/20 Aspirin [Aspirin Low Strength] 81 mg PO DAILY 04/15/20 Calcitriol 0.5 mcg PO DAILY 04/15/20 Clopidogrel Bisulfate [Plavix] 75 mg PO QD 04/15/20 Gabapentin 300 mg PO BEDTIME 04/15/20 HYDROcodone 5MG/APAP 325MG [Radnor 5/325] 1 tablet PO Q6HR PRN 04/15/20 Lisinopril 20 mg PO DAILY 04/15/20 Pantoprazole Tablet [Protonix] 40 mg PO DAILY 04/15/20 Sevelamer Carbonate 800 mg PO TID 04/15/20 Transfer to Outside Facility - Transfer Information Decision to Transfer Date: 04/15/20 Decision to Transfer Time: 14:08 Reason for Transfer: specialized care not available Accepting Provider:: dr kaba Accepting Facility: [facility]
[2020-04-15 14:50] VITALS: BP 122/42; TEMP 98.1; O2SAT 98
== END 2020-04-15 14:37 | disposition short-term general hospital (02) ==
LOC: ER 10:12
DX: R65.20 Severe sepsis without septic shock (principal); J18.9 Pneumonia, unspecified organism; A41.9 Sepsis, unspecified organism; L89.152 Pressure ulcer of sacral region, stage 2; R33.9 Retention of urine, unspecified; E87.3 Alkalosis; I13.2 Hypertensive heart and chronic kidney disease with heart failure and with stage 5 chronic kidney disease, or end stage renal disease; I25.2 Old myocardial infarction; I50.9 Heart failure, unspecified; N18.5 Chronic kidney disease, stage 5; Z99.81 Dependence on supplemental oxygen; Z79.899 Other long term (current) drug therapy; G93.40 Encephalopathy, unspecified; I95.9 Hypotension, unspecified
CPT/HCPCS: 36415; 36600; 70450; 71045; 74176; 80053; 80329; 81001; 82150; 82550; 82553; 82803; 82805; 82948; 83605; 83690; 83735; 83880; 84484; 85025; 85610; 85730; 87040; 93005; 94640; A4216; J2310; J2543; J2930; J3370; J7030; J7050; J7620